=== PATIENT | male | born 1980 | race Two or more races ===

== ENCOUNTER 2024-11-05 08:23 | Inpatient (IN) | payer BC, SELFPAY ==
[2024-11-05] VITALS (13 sets, daily range): BP systolic 106–130; BP diastolic 80–95; PULSE 84–105; RESP 19–94; TEMP 36.3–36.8; O2SAT 91–95; BMI 29.8; BMI 28.5; BMI 27.7
--- NOTE | 2024-11-05 08:32 | EKG_ITS ---
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1980 Requested By: Javed Cruz (HOLISTIC SPECIALIST) Order Number: [id number] Reading MD: Javed Cruz (HOLISTIC SPECIALIST) Measurements Intervals [place] Rate: 98 P: 64 VA: 145 QRS: 81 QRSD: 110 T: -28 QT: 369 QTc: 473 Interpretive Statements SINUS RHYTHM POSSIBLE LEFT ATRIAL ENLARGEMENT [-0.1mV P-WAVE IN V1/V2] INCOMPLETE RIGHT BUNDLE BRANCH BLOCK [90+ ms QRS DURATION, TERMINAL R IN V1/V2, 40+ ms S IN I/aVL/V4/V5/V6] MODERATE T-WAVE ABNORMALITY, CONSIDER ANTERIOR ISCHEMIA [-0.1+ mV T-WAVE IN V3/V4] MODERATE T-WAVE ABNORMALITY, CONSIDER INFERIOR ISCHEMIA [-0.1+ mV T-WAVE IN II/aVF] No previous ECG available for comparison /store/S0/[id number]/[id number].pdf
--- NOTE | 2024-11-05 08:49 | XR_ITS ---
Examination: PA lateral chest 2 views Technique: Upright PA lateral chest 2 views Exam date and time: November 06, 2019 5091 hrs. Indications: Chest pain today Findings: Normal heart size. Lungs are clear. The osseous structures are intact Impression: No active disease
--- NOTE | 2024-11-05 08:49 | PD.EDRME ---
Rapid Medical Screening Exam RME Arrival date/time: 11/05/24 08:23 43-year-old male presents to the emergency department complaints of chest pain and shortness of breath Chief Complaint: Chest Pain Time Seen by Provider: 11/05/24 09:00 Vital signs: Vital Signs Temperature 98.3 F 11/05/24 08:34 Pulse Rate 105 H 11/05/24 08:34 Respiratory Rate 19 11/05/24 08:34 Blood Pressure 124/85 H 11/05/24 08:34 Pulse Oximetry (%) 92 L 11/05/24 08:34 Oxygen Delivery Method Room Air 11/05/24 08:34
--- NOTE | 2024-11-05 09:12 | EDNOTE_ITS ---
ED Chest Pain RME/HPI General Chief Complaint: Chest Pain Stated Complaint: CP x 1 year and SOB x 1 mo. Time Seen by Provider: 11/05/24 09:00 Arrival date/time: 11/05/24 08:23 RME / HPI RME / HPI narrative: 11/05/24 08:23 43-year-old male presents to the emergency department complaints of chest pain and shortness of breath DR. HANSON MAIN ED EVALUATION: 43-year-old male patient with history of trauma to lower left ribs 1 year ago complaining of substernal chest pain that has not gone away since that time. Nonradiating. States he has also had decreased appetite and weight loss of 15 pounds and has been experiencing intermittent shortness of breath on exertion progressively more frequently. Denies cough. Denies fever. States a year ago he was noted here to have an extra heart sound and was sent to [facility] where workup was negative. Denies nausea or vomiting. Denies diarrhea or constipation. Related Data Allergies Allergy/AdvReac Type Severity Reaction Status Date / Time No Known Allergies Allergy Unverified 11/05/24 11:34 Review of Systems Review of Systems Systems Reviewed: All systems reviewed, normal except as documented Narrative Review of Systems: GEN: No fever, no chills, + decreased appetite and weight loss of 15 pounds EYES: No discharge, no visual changes, no pain HEENT: No ear pain, no congestion, no sore throat PULM: + intermittent shortness of breath on exertion , no cough, no congestion CV: + substernal chest pain, + dyspnea on exertion, no palpitations GI: No nausea, no vomiting, no diarrhea, no pain, no constipation : No frequency, no urgency and no dysuria MUSC/SKEL: No joint pain, no back pain SKIN: No rash PSYCH: No hallucinations, no depression HEME/LYMPH: No easy bleeding or bruising tendencies NEURO: No weakness, no headache Past Medical History Social History SMOKING STATUS: Never smoker SUBSTANCE USE: does not use ALCOHOL: Never ED Exam Narrative Physical exam: GENERAL APPEARANCE: alert and oriented x 4, well-developed, well-nourished, no acute distress VITALS: All vitals were reviewed and the pulse ox is 93% on room air, which is normal according to my interpretation. HEENT: Normocephalic, atraumatic; pupils equal, round, reactive to light; EOMI; mucous membranes pink, moist; oropharynx clear NECK: Supple LUNGS: CTABL; no wheezes, no rales, no rhonchi HEART: Regular rate, regular rhythm; normal S1, S2; no murmurs ABDOMEN: non distended; normal BS; soft, no tenderness, no guarding, no rebound; no masses, no organomegaly, no hernia BACK: no CVA tenderness EXTREMITIES: atraumatic; no edema NEUROLOGIC: awake; alert and oriented x4; cranial nerves II-XII grossly intact; no focal sensory or motor deficits PSYCHIATRIC: appropriate mood and affect SKIN: warm, dry, normal color; no rashes Course Quality Measures none Orders Category Date Time Status Bedside COVID-19 Antigen Test NOW Care 11/05/24 08:58 Active Bedside Influenza A&B Antigen Test NOW Care 11/05/24 08:[address] Screening NOW Care 11/05/24 09:12 Active Lay Out Worker NOW Care 11/05/24 08:57 Active EKG (ED ONLY) *Do not use* NOW Care 11/05/24 08:[address] angio chest Stat Exams 11/05/24 09:12 Completed EKG (ED Only) Stat Exams 11/05/24 08:32 Draft XR chest 2V Stat Exams 11/05/24 08:49 Completed Alcohol, Blood Medical Stat Lab 11/05/24 08:55 Completed BNP [B-Type Natriuretic Peptide] Stat Lab 11/05/24 08:55 Completed CBC Stat Lab 11/05/24 08:55 Completed Comprehensive Metabolic Panel Stat Lab 11/05/24 08:55 Completed Drug Screen,Urine Stat Lab 11/05/24 11:04 Completed Lipase Stat Lab 11/05/24 08:55 Completed Partial Thromboplastin Time AM DRAW Lab 11/07/24 05:00 Ordered Partial Thromboplastin Time Stat Lab 11/05/24 11:38 Ordered Prothrombin Time with INR AM DRAW Lab 11/07/24 05:00 Ordered Troponin I Stat Lab 11/05/24 08:55 Completed Aspirin Chew Med 11/05/24 10:49 Discontinued 324 mg PO X1 ONE Heparin Inj Med 11/05/24 11:32 Discontinued 4,000 unit IV X1 ONE Heparin/D5w 25K 250 ML Ivpb [Heparin in D5w Ivpb] Med 11/05/24 11:45 Pending 25,000 unit in 250 ml IV 12 units/kg/hr O2 [Oxygen Delivery] NOW RT 11/05/24 08:57 Active Vital Signs Vital signs: Vital Signs Temperature 98.3 F 11/05/24 08:34 Pulse Rate 105 H 11/05/24 08:34 Respiratory Rate 19 11/05/24 08:34 Blood Pressure 124/85 H 11/05/24 08:34 Pulse Oximetry (%) 92 L 11/05/24 08:34 Oxygen Delivery Method Room Air 11/05/24 08:34 Procedures -ED EKG Interpretation #1: Date of EK11/05/24 Time of EK:41 Rate: 98 Interpretation: Interpreted by me Additional EKG comment: sinus rhythm, rate 98, T wave inversion in V1-V3, incomplete right bundle branch block Chest Pain MDM Narrative MDM Narrative:: Christi Wilder am scribing for and in the presence of Dr. Hanson. Patient data External records reviewed:: [facility] previous records (Reviewed last ED visit dated 12/16/23, discharged with the following: Chest wall contusion) Clinical information provided by:: patient Social determinants that could affect healthcare access:: none Patient has the following chronic illnesses:: trauma to lower left ribs 1 year ago How is presenting disease/condition affected by chronic disease/condition?: exacerbated by Evaluation data The following diagnostics were reviewed and interpreted by me:: lab results, radiology exam(s) and EKG tracing(s) (EKG#1: EKG at 0841 hours. Interpreted by me: sinus rhythm, rate 98, T wave inversion in V1-V3, incomplete right bundle branch block) Lab and/or radiology exams considered but not ordered:: none Interpretation Summary: Procedure(s): XR chest 2V Accession Number(s): [id number] cc: Nancy (RASTA),Javed MAGDALENO; Tripp Miranda MD; Ric Sanchez PA-C~ Examination: PA lateral chest 2 views Technique: Upright PA lateral chest 2 views Exam date and time: November 06, 2019 5091 hrs. Indications: Chest pain today Findings: Normal heart size. Lungs are clear. The osseous structures are intact Impression: No active disease Dictated By: Tripp Miranda MD Procedure(s): CT angio chest Accession Number(s): [id number] cc: Tripp Miranda MD; Bella Hanson MD; Ric Sanchez PA-C~ Examination: CTA chest with intravenous contrast 2-D reconstructions 3-D reconstructions, vascular Date and time of exam: November 05, 2024 10:30 PM Indications: Onset chest pain shortness of breath today CTDI: vol (mGy) 22.7 DLP: (mGycm) 373 Technique: Multiple axial sections of the thorax have been obtained. 3 mm slice thickness, from below the hemidiaphragms to above the apices of the lungs. Mediastinal and lung density settings have been obtained. 2-D sagittal and coronal reconstructions. 3-D angiographic renderings, 3-D volume renderings, 3D post processing, vascular maximum intensity projections obtained. Contrast administered is 100 cc Isovue-370. Low dose protocols were performed. One or more of the following dose reduction techniques were used; automated exposure control, adjustment of the mA and/or KV according to patient size, use of iterative reconstruction technique. Findings: Large bilateral filling defects in the main pulmonary arteries right and left upper lobe pulmonary artery branches Normal heart size No mediastinal lymphadenopathy No pneumonia or pulmonary infarction No focal liver or splenic lesions No gallstones No pancreatic mass Impression: Multiple large bilateral pulmonary artery emboli Dictated By: Tripp Miranda MD Medications / Prescriptions Medications or Prescriptions considered but not ordered:: none Medication administrations:: Medication Administration History Heparin Sodium/Dextrose (Heparin In D5w Ivpb) 25,000 unit in 250 mls @ 12.111 mls/hr IV .[id number] [facility]; Protocol Stop: 11/19/24 11:44 Discontinued Medications Aspirin (Aspirin 81 Mg Chew) 324 mg PO X1 ONE Stop: 11/05/24 10:50 Last Admin: 11/05/24 11:09 Dose: 324 mg Documented By: CHICHO Heparin Sodium (Porcine) (Heparin Sod Inj 5000 Unit/Ml Vial) 4,000 unit IV X1 ONE; Protocol Stop: 11/05/24 11:33 see above Consultations Consultation(s) initiated? (list below): Yes Consultation #1 (Physician, Specialty, Details): Discussed test HPI, PMHx, lab, radiology results and/or management with insurance claims processor Dr. Lopez. Since there is not evidence of right ventricular strain or hypoxia no need to transfer the patient. Patient can be admitted to hospitalist services and Dr. Lopez will consult. Time: 11:37 Consultation #2 (Physician, Specialty, Details): Discussed test HPI, PMHx, lab, radiology results and/or management with hospitalist. Will admit for further evaluation and management. Accepts patient for admission. Time: 11:52 Diagnosis Chest Pain Differential Diagnosis: atypical chest pain, costochondritis, chest pain and biliary colic Most likely diagnosis given after review of the tests above:: Multiple large bilateral pulmonary artery emboli Admission Indicated Admission indicated?: indicated Admission Request Was there a request for admission?: Yes Admission Attestation Admission request attestation: Discussed case with [] from Hospitalist service regarding admission. Discussed patients ED course, exam findings, labs, and radiology results. The Hospitalist [agrees,declines] to accept the patient for admission. Disposition Plan Disposition Plan: Admit Discharge Plan Plan Patient Disposition: Admit Acute Care w/in Hospital Prescriptions/Referrals Referrals: Ric Sanchez PA-C [Primary Care Provider] - In 1 week Problem List Clinical Impression: Bilateral pulmonary embolism Patient/Caregiver Discharge Instructions Print Language: Cambodian Stand Alone Forms: [employer] Award Info., Patient Portal Info Letter
[2024-11-05 09:19] LABS: Basophils # (Auto) 0.1 Thou/mm3 (0.0-0.2); Basophils % (Auto) 1 % (0-2.5); Eosinophils # (Auto) 0.2 Thou/mm3 (0.0-0.5); Eosinophils % (Auto) 2 % (0-10); Hemoglobin 17.1 g/dL (13.5-16.0); Immature Granulocytes % (Auto) 0 % (0-0); Immature Granulocytes Auto 0.04 Thou/mm3 (0.00-0.00); Lymphocytes # (Auto) 3.2 Thou/mm3 (1.0-4.8); Lymphocytes % (Auto) 29 % (10-50); Mean Corpuscular HGB Conc 32.9 g/dl (31.0-37.0); Mean Corpuscular Hemoglobin 25.9 pg (25.0-35.0); Mean Corpuscular Volume 79 fL (80-100); Monocytes # (Auto) 0.5 Thou/mm3 (0.0-0.8); Monocytes % (Auto) 4 % (0-12); Neutrophils % (Auto) 64 % (37-80); Nucleated Red Blood Cell % 0 /100 WBC (0); Platelet Count 293 Thou/mm3 (140-440); White Blood Count 10.9 Thou/mm3 (3.8-10.6)
[2024-11-05 09:41] LABS: Alanine Aminotransferase 39 U/L (10-49); Albumin, Serum 4.8 gm/dL (3.5-5.0); Albumin/Globulin Ratio 1.5 (1.2-2.2); Alcohol, Blood Medical < 10.0 mg/dL (0-10.0); Alkaline Phosphatase 100 U/L (46-116); Anion Gap 7 (7-16); Aspartate Amino Transferase 24 U/L (0-34); BUN/Creatinine Ratio 15 Ratio (12-20); Bilirubin,Total 0.8 mg/dL (0.3-1.2); Blood Urea Nitrogen 18 mg/dL (9-23); Calcium 9.9 mg/dL (8.3-10.6); Calcium (Corrected) 9.9 mg/dL (8.5-10.1); Carbon Dioxide 24.1 mMol/L (20.0-31.0); Chloride 109 mMol/L (98-107); Creatinine (Component) 1.2 mg/dL (0.6-1.3); Estimated Creatinine Clearance 100.7 mL/min (>60); Globulin 3.3 gm/dL (2.3-3.5); Glucose 126 mg/dL (74-106); Lipase 50 U/L (12-53); Osmolality,Calculated 283 (275-295); Potassium 4.7 mMol/L (3.4-5.1); Sodium 140 mMol/L (136-145); Total Protein 8.1 gm/dL (5.7-8.2); eGFR > 60 See Note
[2024-11-05 09:45] LABS: Troponin I 0.077 ng/mL (0.0-0.045)
[2024-11-05 09:46] LABS: B-Type Natriuretic Peptide 287 pg/mL (0-100)
[2024-11-05] MEDS: ASPIRIN 81 MG CHEW 324 MG PO (11:09)
[2024-11-05 11:35] LABS: Amphetamine/Methamp Scrn,U Negative (Negative); Barbiturate Screen,Urine Negative (Negative); Benzodiazepines Screen,Urine Negative (Negative); Benzoylecgonine Screen, Ur Negative (Negative); Fentanyl Screen,Urine Negative (Negative); Opiate Screen,Urine Negative (Negative); THC Screen,Urine Negative (Negative)
--- NOTE | 2024-11-05 12:00 | PC.NURSE ---
DR. MCCABE AT BEDSIDE
[2024-11-05] MEDS: HEPARIN SOD INJ 5000 UNIT/ML VIAL 4000 UNIT IV (12:11)
--- NOTE | 2024-11-05 12:16 | PD.IMCONS ---
HPI Data of Consult Primary Care Provider: Ric Sanchez PA-C Consult Narrative History of present illness: This is 43-year-old gentleman with no significant past medical history Patient started having increasing shortness of breath going on for 3 weeks Initially it was somewhat mild however lately it was gotten worse Currently he is unable to walk even bed to the bathroom without short of breath He also complains of atypical chest pain on the left side is however currently he denies any symptoms EKG shows sinus rhythm with nonspecific T inversions anteriorly Patient's troponin is elevated minimally CAT scan of the chest shows multiple large pulmonary embolism cardiology consultation requested Currently patient is seen in the emergency room he appears comfortable he is on oxygen currently denies any cardiac symptoms recalls having start symptoms started 3 weeks ago cc:: cc: Meds Home Medications and Allergies Home Medications ?Medication ?Instructions ?Recorded ?Confirmed ?Type No Known Home Medications 11/05/24 11/05/24 History Allergies Allergy/AdvReac Type Severity Reaction Status Date / Time No Known Allergies Allergy Unverified 11/05/24 12:16 Exam Vital Signs Temp Pulse Resp BP Pulse Ox O2 Del Method 97.4 F 92 23 H 106/83 93 L Room Air 11/05/24 10:59 11/05/24 10:59 11/05/24 10:59 11/05/24 10:59 11/05/24 10:59 11/05/24 10:59 Routine HEENT Exam Head: Present normocephalic and atraumatic Eye: Present EOMI and PERRL ENT: Present mucous membranes moist Routine Neck Exam Neck: Present supple and trachea midline Routine Respiratory Exam Respiratory: Present chest non-tender, lungs clear, normal breath sounds and no resp distress Routine Cardiovascular Exam Cardiovascular: Present RRR Routine Abdominal Exam Abdominal: Present soft and normoactive bowel sounds Routine Extremities Exam Extremities: Present full ROM Routine Skin Exam Skin: Present intact, dry and warm Routine Neurological Exam Neurological: Present alert, oriented X3 and CN II-XII intact Routine Psychiatric Exam Psychiatric: Present normal affect and normal thought process Results Labs 11/05/24 08:55 11/05/24 08:55 Labs: Short CBC 11/05/24 Range/Units 08:55 WBC 10.9 H (3.8-10.6) Thou/mm3 Hgb 17.1 H (13.5-16.0) g/dL Hct 52.0 (41.0-53.0) % Plt Count 293 (140-440) Thou/mm3 BMP 11/05/24 08:55 Sodium 140 Potassium 4.7 Chloride 109 H Carbon Dioxide 24.1 BUN 18 Creatinine 1.2 Glucose 126 H Calcium 9.9 Cardiac Enzymes 11/05/24 Range/Units 08:55 Troponin I 0.077 H* (0.0-0.045) ng/mL Liver Function 11/05/24 Range/Units 08:55 Total Bilirubin 0.8 (0.3-1.2) mg/dL AST 24 (0-34) U/L ALT 39 (10-49) U/L Alkaline Phosphatase 100 (46-116) U/L Albumin 4.8 (3.5-5.0) gm/dL Assessment and Plan Assessment and plan (1) Bilateral pulmonary embolism: Status: Acute (2) SOB (shortness of breath): Status: Acute (3) Elevated troponin: Status: Acute Additional Assessment & Plan Additional Plan: Patient appears to have pulmonary embolism bilateral Continue anticoagulation We will recommend echocardiographic exam Elevated troponin is most likely due to demand ischemia Doubt acute coronary syndrome
--- NOTE | 2024-11-05 12:17 | PC.NURSE ---
DR. BANKS AT BEDSIDE AND DR. GHOTRA AT BEDSIDE.
[2024-11-05 12:36] LABS: Partial Thromboplastin Time 25.1 Seconds (22.0-36.0)
[2024-11-05] MEDS: Heparin/D5w 25K 250 ML Ivpb 25,000 UNIT/250 ML BAG 10 UNIT IV (12:59)
--- NOTE | 2024-11-05 13:07 | XR_ITS ---
Examination: Venous duplex lower extremity sonogram, bilateral. Date and time of exam: November 05, 2024 1543 hrs. Indications: Lower leg edema, multiple large bilateral pulmonary artery emboli on CT angiogram study today Technique: Multiple sonographic images of the deep venous system have been obtained. B-mode/2-D grayscale imaging of vascular structures and Doppler spectral analysis (waveforms) and color performed Both legs are examined. Findings: Occlusive acute deep vein thrombus involving the right superficial femoral and right peroneal veins Occlusive deep vein thrombus involving the left superficial femoral, popliteal and peroneal veins Impression: Extensive bilateral lower extremity deep vein thrombus
--- NOTE | 2024-11-05 13:15 | PD.PUCONS ---
[facility] Pulmonology Consult Data of Consult Requesting Physician: Asad Gallardo DO Primary Care Provider: Ric Sanchez PA-C Consult Narrative History of present illness: Patient is a 43 year old male with no significant PMH or surgical history. Patient with prior right foot fracture three years ago. 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 No family history of blood clots. Presented to ED with worsening dyspnea. If he thinks back, about 1 year ago this started but now unable to run. Able to do most activities including climbs stairs. No new leg swelling, RLE swelling noted intermittently. Patient with no prior history of blood clots personally as well. Patient has been reporting chest pain, told on recent imaging that he had a traumatic fall that lead to rib fractures that was healing/ bruised still but persisted. No orthopnea, PND, dyspnea with heavier exertion. Patient denied any dizziness or pre-/syncopal episodes. CTA on admission with extensive clots in both lungs, predominantly lobar, cannot exclude chronic component. Patient with no BNP elevation, minimal troponin elevation. EKG with RBBB pattern, NSR. Being admitted with initiation of 2LNC and heparin gtt to be started. is present with him at bedside and translating as well as myself. PMH: No significant past medical history PSH: No surgical history SH: Patient denies smoking, drug use or alcohol use Allergies: No known drug allergy Home Meds: Patient does not take any medications cc:: cc: Asad Gallardo DO Review of Systems Review of Systems Narrative Review of Systems: Pertinent review of symptoms completed with findings included in HPI above Past Medical History Past Medical History Comments PMH COMMENT: PMH/ PSH, FH, Soc Hx reviewed as per above. Lives with in [place]. 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 Patient without pertinent family history. Meds Home Medications and Allergies Home Medications ?Medication ?Instructions ?Recorded ?Confirmed ?Type No Known Home Medications 11/05/24 11/05/24 History Allergies Allergy/AdvReac Type Severity Reaction Status Date / Time No Known Allergies Allergy Unverified 11/05/24 12:16 Exam Vital Signs Temp Pulse Resp BP Pulse Ox O2 Del Method O2 Flow Rate 97.3 F 84 24 H 112/88 H 94 L Nasal Cannula 2 11/05/24 20:00 11/05/24 23:38 11/05/24 23:38 11/05/24 20:00 11/05/24 23:38 11/05/24 20:00 11/05/24 23:38 Narrative Exam GEN: EROS AAOX3 speaks in full sentences Neck: No JVD Chest: symmetric rise CVS: systolic murmur over aortic valve Pulm: clear to auscultation Abd: soft, NT, ND Ext: no clubbing or cyanosis Neuro: nonfocal on gross exam Psych: appropriate mood and affect Skin: no obvious lesions/ rash Physical Exam Completion Physical Exam Complete?: Yes Results - Aircraft Designer Labs 11/05/24 08:55 11/05/24 08:55 Labs: Short CBC 11/05/24 Range/Units 08:55 WBC 10.9 H (3.8-10.6) Thou/mm3 Hgb 17.1 H (13.5-16.0) g/dL Hct 52.0 (41.0-53.0) % Plt Count 293 (140-440) Thou/mm3 BMP 11/05/24 08:55 Sodium 140 Potassium 4.7 Chloride 109 H Carbon Dioxide 24.1 BUN 18 Creatinine 1.2 Glucose 126 H Calcium 9.9 Cardiac Enzymes 11/05/24 11/05/24 11/05/24 Range/Units 08:55 13:27 18:44 Troponin I 0.077 H* 0.066 H* 0.085 H* (0.0-0.045) ng/mL Liver Function 11/05/24 Range/Units 08:55 Total Bilirubin 0.8 (0.3-1.2) mg/dL AST 24 (0-34) U/L ALT 39 (10-49) U/L Alkaline Phosphatase 100 (46-116) U/L Albumin 4.8 (3.5-5.0) gm/dL Assessment & Plan Problem List (1) Bilateral pulmonary embolism: Status: Acute (2) SOB (shortness of breath): Status: Acute (3) Elevated troponin: Status: Acute Additional Plan Additional Plan: Patient presenting with large clot burden form pulmonary embolism bilaterally Lower extremity doppler also with extensive clot bilaterally Gentle fluid rehydration given polycythemia Chronicity potentially for years, precipitated by occupation/ lower extremity fracture Polycythemia may be related to chronic hypoxia if untreated or primary cause, consider check Aryan 2 for PV- explains hypercoaguable state, minor criteria would include leukocytosis though this could be reactive as well Anticoagulation with heparin gtt for now, please be aware this will preclude some hypercoagulable tests RV /RA look enlarged on CT though RV: LV not greater than 1:1, BNP negative ( favorable), and troponin minimally elevated- not submassive at this time Will consult cardiology after Echo, possible role for thrombectomy Also complete VQ to look for chronic component Check for malignancy as well given 15 lbs weight loss, C-scope given colon Ca most common and CT chest without any focal lesion though abdomen/ pelvis should be excluded as well Ambulatory O2 testing should be done prior to discharge, must wear at night if positive, stable on 2L at rest now Will need follow up Echo and VQ in 3 months after AC to ensure no CTEPH- would refer to [facility] for surgery in that case D/W Dr. Hanson, Dr. Ortiz, and Medicine team Provider Notation Provider Notation: Although this document has been carefully reviewed, there may still be some phonetic and other typographical errors. These errors are purely grammatical due to imperfections in the software program and should not be construed in any way to compromise the substance of the patient's medical care during this visit. Thank you for the opportunity and privilege in assisting you with this patient's care and management.
--- NOTE | 2024-11-05 13:26 | ESHP_ITS ---
Documentation for date of: 11/05/24 [facility] History of Present Illness History of present illness: Mr. Pillai is a 43-year-old male with no significant past medical history presented to the ED complaining of substernal chest pain that has not improved for the past 1 week.. Patient states approximately a year ago he had a chest trauma which initially chest x-ray did not show any fracture but repeat chest x- ray showed rib fracture and ever since then he has had this substernal chest pain which has not improved. Patient states for the last couple days along with the chest pain he was having increased shortness of breath and was unable to tolerate even secondhand smoke and was becoming very short of breath if exposed to any smoke. Patient denies the pain radiating anywhere, denies any dizziness, diaphoresis, orthopnea or PND. Patient has also recently lost 15 pounds unintentionally. Patient has stated that although he has no health problems approximately 3 years ago he broke his right foot and was in a boot for 2 months and did not undergo any surgery or cast. Patient did notice that his right calf appeared to be bigger than the left and denied any pain in his lower extremities. 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 ED course: Vitals: Blood pressure 124/85, pulse 105, 2 L oxygen via nasal cannula Labs: WBC 12.9, Hgb 17.1, HCT 52.0, MCV 70, APTT 25.1, CMP unremarkable with exception of glucose 126 Troponin 0.077 -> 0.066 , BNP 280 Urine tox negative Images EKG: Sinus rhythm with moderate T wave abnormality CXR: No active disease Chest CTA: Multiple large bilateral pulmonary artery emboli In the ED patient received aspirin 324 x 1, heparin 4000 units x 1, and patient was started on a heparin drip PMH: No significant past medical history PSH: No surgical history SH: Patient denies smoking, drug use or alcohol use Allergies: No known drug allergy Home Meds: Patient does not take any medications Review of Systems Review of Systems Systems Reviewed: All systems reviewed, normal except as documented Exam Vital Signs Temp Pulse Resp BP Pulse Ox O2 Del Method O2 Flow Rate 98.1 F 90 19 116/80 94 L Nasal Cannula 2 11/05/24 12:45 11/05/24 13:08 11/05/24 12:24 11/05/24 12:24 11/05/24 13:08 11/05/24 12:24 11/05/24 13:08 Narrative Exam GENERAL: A&Ox3 . Awake, Not in acute distress NEURO: no focal neurological deficits HEENT: Atraumatic, Normocephalic. mucous membranes moist. Eyes open, symmetrical, & clear HEART: loud systolic murmur heard LUNGS: Clear to auscultation with no wheezing or crackles. ABDOMEN: soft, non-distended, non-tender, bowel sounds heard, no guarding or rebound tenderness SKIN: No Rash or ecchymoses EXTREMITIES: left calf edema noted, no tenderness, able to move all 4 extremities, pedal pulses palpated Results: Labs 11/05/24 08:55 11/05/24 08:55 Labs: Short CBC 11/05/24 Range/Units 08:55 WBC 10.9 H (3.8-10.6) Thou/mm3 Hgb 17.1 H (13.5-16.0) g/dL Hct 52.0 (41.0-53.0) % Plt Count 293 (140-440) Thou/mm3 BMP 11/05/24 08:55 Sodium 140 Potassium 4.7 Chloride 109 H Carbon Dioxide 24.1 BUN 18 Creatinine 1.2 Glucose 126 H Calcium 9.9 Cardiac Enzymes 11/05/24 Range/Units 08:55 Troponin I 0.077 H* (0.0-0.045) ng/mL Liver Function 11/05/24 Range/Units 08:55 Total Bilirubin 0.8 (0.3-1.2) mg/dL AST 24 (0-34) U/L ALT 39 (10-49) U/L Alkaline Phosphatase 100 (46-116) U/L Albumin 4.8 (3.5-5.0) gm/dL Quality Measures Quality Measures none Medications Home Medications and Allergies Home Medications ?Medication ?Instructions ?Recorded ?Confirmed ?Type No Known Home Medications 11/05/2404/24 History Allergies Allergy/AdvReac Type Severity Reaction Status Date / Time No Known Allergies Allergy Unverified 11/05/24 12:16 Visit Medications Acetaminophen (Acetaminophen 325 Mg Tablet) 650 mg PO Q6H PRN PRN Reason: Fever >101.5 Stop: 12/05/24 13:01 Hydrocodone Bitart/Acetaminophen (Hydrocodone/Apap 5/325 Tablet) 1 tab PO Q4HR PRN PRN Reason: PAIN SCALE 4-6 (Moderate Stop: 11/10/24 13:09 Heparin Sodium/Dextrose (Heparin In D5w Ivpb) 25,000 unit in 250 mls @ 10 mls/hr IV .Q24H COLTON; Protocol Stop: 11/19/24 12:29 Last Admin: 11/05/24 12:59 Dose: 9.908 units/kg/hr, 10 mls/hr Ondansetron HCl (Ondansetron Inj 2 Mg/Ml Inj 2 Ml) 4 mg IV Q6H PRN; Protocol PRN Reason: NAUSEA OR VOMITING Stop: 12/05/24 13:09 Pantoprazole Sodium (Pantoprazole Inj 40 Mg Vial) 40 mg IVP QDAY COLTON Stop: 12/05/24 13:14 Sennosides (Senna Tablet) 1 tab PO QDAY PRN; Protocol PRN Reason: constipation Stop: 12/05/24 13:09 Discontinued Medications Aspirin (Aspirin 81 Mg Chew) 324 mg PO X1 ONE Stop: 11/05/24 10:50 Last Admin: 11/05/24 11:09 Dose: 324 mg Heparin Sodium (Porcine) (Heparin Sod Inj 5000 Unit/Ml Vial) 4,000 unit IV X1 ONE; Protocol Stop: 11/05/24 11:33 Last Admin: 11/05/24 12:11 Dose: 4,000 unit Assessment & Plan Plan Mr. Pillai is a 43-year-old male with no significant past medical history presented to the ED complaining of substernal chest pain that has not improved for the past 1 week. Pt is admitted for management of bilateral PE and DVT's. #Bilateral Pulmonary embolism likely secondary to DVT's #bilateral extensive LE DVT's #Erythrocytosis -Pt complained of chest pain and shortness of breath. Pt also noted right calf enlargemet. -CTA of chest is evident of Large bilateral filling defects in the main pulmonary arteries right and left upper lobe pulmonary artery branches. Multiple bilaterall PE -Venous doppler ultrasound of LE ordered- and teleradiologist called states there is extensive bilateral LE DVT's- worse on the right LE -Hgb 17.1 , likely sencondary to chronic thrombois -PESI score 53 Plan: -Pt is started on heparin drip -EPO, cocci, factor V Leiden mutation, hepatitis panel, TSH ordered -Consulted cardiology, appreciate recommendations -Echocardiogram ordered # Elevated troponin, type ll, likely secondary to demand ischemia -Troponin 0.077 -> 0.066 , BNP 280 Health Maintenance Disposition: telemetry for heparin drip for large bilateral PE and extensive DVT's DVT Prophylaxis: Pt is heparin drip GI Prophylaxis: Pantoprozol-40 IV Qday Diet: regular diet Lines: Peripheral lines Code status: Full Assessment and plan discussed with my attending physician Dr. Paulina Benjamin (PGY-1)- Internal medicine resident Attending Provider Attestation/Addendum I have discussed and was present for the essential components of the history, physical examination, diagnosis, and treatment plan with the resident. I agree with the patient's care as documented by the resident and amended herein by me. Sidney Gallardo DO. Patient seen and evaluated this AM. In short, 43-year-old male with a past medical history of rib trauma with fracture approximately 1 year ago as well as right lower extremity fracture approximately 3 years ago, not currently on any medications, presents the ED with shortness of breath for the past several days prior to admission as well as substernal, nonradiating chest pain. Patient also endorses an unintentional 15 pound weight loss over the past several weeks. 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. Upon arrival to the ED, patient was normotensive, pulse 105, afebrile, patient on 2 L, SpO2 91%. Significant labs include a WBC of 11, hemoglobin 17, BMP largely unremarkable, troponin opponent was slightly elevated 0.77 but has down trended, BNP 287, U tox negative, EKG demonstrating NSR, chest x-ray unremarkable, CTA demonstrating multiple large bilateral pulmonary emboli. Bilateral DVT ultrasound of the lower extremities demonstrating extensive bilateral DVTs. Patient was started on heparin drip in the emergency department. Patient will be admitted to the telemetry floor and continued on heparin drip however will eventually be transition to Eliquis. An echo has been ordered to evaluate for cardiac function, specifically right heart dysfunction and RV/LV ratio. Cardiology has been consulted and agrees with echo and anticoagulation for now. We did calculate the Pasi score which was 53 indicating very low risk for mortality in the next 30 days however will reevaluate once echo is complete. Troponin elevation likely secondary to demand ischemia, has already down trended. Erythrocytosis is likely secondary, possibly secondary to chronic thrombus/CTEPH. Patient was evaluated by pulmonology in the ED who agrees with plan, will continue to monitor closely. Although this document has been carefully reviewed, there may still be some phonetic and other typographical errors. These errors are purely grammatical due to imperfections in the software program and should not be construed in any way to compromise the substance of the patient's medical care during this visit.
[2024-11-05 13:59] LABS: Troponin I 0.066 ng/mL (0.0-0.045)
[2024-11-05 14:52] LABS: Cocci Serology, IgM Negative (Negative)
[2024-11-05] MEDS: PANTOPRAZOLE INJ 40 MG VIAL IVP (16:56)
--- NOTE | 2024-11-05 17:07 | PC.NURSE ---
CALLED REPORT TO JAIDEN CALDERÓN. ANSWERED ALL QUESTIONS.
[2024-11-05 19:23] LABS: Partial Thromboplastin Time 27.7 Seconds (22.0-36.0)
[2024-11-05 19:32] LABS: Troponin I 0.085 ng/mL (0.0-0.045)
[2024-11-05] MEDS: HEPARIN SOD INJ 5000 UNIT/ML VIAL 4000 UNIT IVP (19:50)
--- NOTE | 2024-11-05 23:41 | PC.NURSE ---
Venous doppler report returned showing extensive bilateral lower extremity deep vein thrombus. Dr. Youssef made aware. Dr. Youssef switched ACS heparin protocol to DVT heparin protocol.
[2024-11-06] VITALS (8 sets, daily range): BP systolic 107–134; BP diastolic 70–89; PULSE 78–94; RESP 14–95; TEMP 36–37.1; O2SAT 94–95; BMI 28.0
[2024-11-06] MEDS: Heparin/D5w 25K 250 ML Ivpb 25,000 UNIT/250 ML BAG 17.639 UNIT IV ×3 (00:21→23:59)
[2024-11-06 01:52] LABS: Troponin I 0.104 ng/mL (0.0-0.045)
[2024-11-06 07:23] LABS: Basophils % (Auto) 0 % (0-2.5); Eosinophils # (Auto) 0.2 Thou/mm3 (0.0-0.5); Eosinophils % (Auto) 2 % (0-10); Hemoglobin 15.4 g/dL (13.5-16.0); Immature Granulocytes % (Auto) 0 % (0-0); Immature Granulocytes Auto 0.02 Thou/mm3 (0.00-0.00); Lymphocytes # (Auto) 3.4 Thou/mm3 (1.0-4.8); Lymphocytes % (Auto) 29 % (10-50); Mean Corpuscular HGB Conc 32.8 g/dl (31.0-37.0); Mean Corpuscular Hemoglobin 26.1 pg (25.0-35.0); Mean Corpuscular Volume 80 fL (80-100); Monocytes # (Auto) 0.7 Thou/mm3 (0.0-0.8); Monocytes % (Auto) 6 % (0-12); Neutrophils # (Auto) 7.3 Thou/mm3 (1.8-7.7); Neutrophils % (Auto) 63 % (37-80); Nucleated Red Blood Cell % 0 /100 WBC (0); Platelet Count 281 Thou/mm3 (140-440); RDW Standard Deviation 40.8 fL (35.1-43.9); White Blood Count 11.7 Thou/mm3 (3.8-10.6)
[2024-11-06 07:45] LABS: Cardiac Risk Estimate 4.2 RATIO (4.0-6.7); Cholesterol 130 mg/dL (132-200); HDL Cholesterol 31 mg/dL (40-60); LDL Cholesterol,Calculated 75 mg/dL (0-130); Phosphorous 3.1 mg/dL (2.4-5.1); Thyroid Stimulating Hormone 2.21 uIU/mL (0.55-4.78); Triglycerides 119 mg/dL (30-150)
[2024-11-06 07:51] LABS: Partial Thromboplastin Time 68.9 Seconds (22.0-36.0)
[2024-11-06 08:00] LABS: Glucose Estimated Average 143 mg/dL (80-131); Hemoglobin A1C 6.6 % Hgb (4.8-6.0)
[2024-11-06] MEDS: PANTOPRAZOLE INJ 40 MG VIAL IVP (08:39)
[2024-11-06 09:35] LABS: Alanine Aminotransferase 37 U/L (10-49); Albumin, Serum 4.1 gm/dL (3.5-5.0); Albumin/Globulin Ratio 1.5 (1.2-2.2); Alkaline Phosphatase 88 U/L (46-116); Anion Gap 8 (7-16); Aspartate Amino Transferase 44 U/L (0-34); BUN/Creatinine Ratio 17 Ratio (12-20); Bilirubin,Total 0.6 mg/dL (0.3-1.2); Blood Urea Nitrogen 22 mg/dL (9-23); Calcium 9.2 mg/dL (8.3-10.6); Calcium (Corrected) 9.2 mg/dL (8.5-10.1); Carbon Dioxide 20.7 mMol/L (20.0-31.0); Chloride 112 mMol/L (98-107); Creatinine (Component) 1.3 mg/dL (0.6-1.3); Estimated Creatinine Clearance 92.3 mL/min (>60); Globulin 2.7 gm/dL (2.3-3.5); Glucose 104 mg/dL (74-106); Osmolality,Calculated 284 (275-295); Potassium 5.3 mMol/L (3.4-5.1); Sodium 141 mMol/L (136-145); Total Protein 6.8 gm/dL (5.7-8.2); eGFR > 60 See Note
[2024-11-06 09:37] LABS: Troponin I 0.065 ng/mL (0.0-0.045)
[2024-11-06 10:00] LABS: Carcinoembryonic Antigen < 0.0 ng/mL (0.0-5.0)
--- NOTE | 2024-11-06 12:46 | PD.RESPRO ---
Documentation for date of: 11/06/24 Subjective Subjective Interval history: Zarina Pillai 43-y/o M no significant PMHx who presented on 11/05 for substernal chest pain x 1 week. Associated shortness of breath, intolerance to the smoke, as well as right calf mildly larger compared to left but no pain in lower extremities. 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 Denies that pain radiates, dizziness, diaphoresis, orthopnea, or PND. Unintentional 15 pound weight loss over past several weeks. Admitted for management of DVT/bilateral PE. 11/06: Seen and examined at bedside. No acute overnight events reported. Saturating 94% on 2 L NC and noted to be tachycardic at 105 bpm, but patient does not have any complaints. Answered questions regarding clinical status, treatment, and further plans with multiple family members present at bedside. A1c 6.6%, lipid panel largely unremarkable with LDL 75, HDL 31, troponin downtrended. K noted to increase from 4.7-5.3 and will continue to monitor. Still pending echo read and plan for VQ scan on 11/07. CEA and CA-125 within normal limits. Exam Vital Signs Temp Pulse Resp BP Pulse Ox O2 Del Method O2 Flow Rate 97.4 F 85 15 117/77 94 L Nasal Cannula 2 11/06/24 08:00 11/06/24 11:02 11/06/24 11:02 11/06/24 08:00 11/06/24 08:00 11/06/24 08:00 11/06/24 08:00 Narrative Exam GENERAL: A&Ox3 . Awake, Not in acute distress NEURO: no focal neurological deficits HEENT: Atraumatic, Normocephalic. mucous membranes moist. Eyes open, symmetrical, & clear HEART: loud systolic murmur heard LUNGS: Clear to auscultation with no wheezing or crackles. ABDOMEN: soft, non-distended, non-tender, bowel sounds heard, no guarding or rebound tenderness SKIN: No Rash or ecchymoses EXTREMITIES: left calf edema noted, no tenderness, able to move all 4 extremities, pedal pulses palpated Objective Labs 11/06/24 06:41 11/06/24 06:11 Labs: Laboratory Results - last 24 hr 11/05/24 11/05/24 11/05/24 11:53 13:27 18:44 WBC RBC Hgb Hct MCV MCH MCHC RDW Std Deviation Plt Count Neut % (Auto) Lymph % (Auto) Mcclain % (Auto) Eos % (Auto) Baso % (Auto) Neut # (Auto) Lymph # (Auto) Mcclain # (Auto) Eos # (Auto) Baso # (Auto) Immature Gran # (Auto) Absolute Nucleated RBC Immature Gran % Nucleated RBC % APTT 25.1 27.7 Sodium Potassium Chloride Carbon Dioxide Anion Gap BUN Creatinine Estim Creat Clear Calc eGFR BUN/Creatinine Ratio Glucose Estimated Ave Glu mg/dL Hemoglobin A1c Calculated Osmolality Calcium Corrected Calcium Phosphorus Magnesium Total Bilirubin AST ALT Alkaline Phosphatase Troponin I 0.066 H* 0.085 H* Total Protein Albumin Globulin Albumin/Globulin Ratio Triglycerides Cholesterol LDL Cholesterol, Calc HDL Cholesterol Cholesterol/HDL Ratio Carcinoembryonic Ag CA 125 Antigen TSH Coccidioides IgM Ab Negative 11/06/24 11/06/24 11/06/24 01:25 06:11 06:41 WBC 11.7 H RBC 5.90 Hgb 15.4 Hct 47.0 MCV 80 MCH 26.1 MCHC 32.8 RDW Std Deviation 40.8 Plt Count 281 Neut % (Auto) 63 Lymph % (Auto) 29 Mcclain % (Auto) 6 Eos % (Auto) 2 Baso % (Auto) 0 Neut # (Auto) 7.3 Lymph # (Auto) 3.4 Mcclain # (Auto) 0.7 Eos # (Auto) 0.2 Baso # (Auto) 0.0 Immature Gran # (Auto) 0.02 H Absolute Nucleated RBC 0.00 Immature Gran % 0 Nucleated RBC % 0 APTT 68.9 H D Sodium 141 Potassium 5.3 H D Chloride 112 H Carbon Dioxide 20.7 Anion Gap 8 BUN 22 Creatinine 1.3 Estim Creat Clear Calc 92.3 eGFR > 60 BUN/Creatinine Ratio [address] Glu mg/dL 143 H Hemoglobin A1c 6.6 H Calculated Osmolality 284 Calcium 9.2 Corrected Calcium 9.2 Phosphorus 3.1 Magnesium 2.0 Total Bilirubin 0.6 AST 44 H ALT 37 Alkaline Phosphatase 88 Troponin I 0.104 H* 0.065 H* Total Protein 6.8 Albumin 4.1 D Globulin 2.7 Albumin/Globulin Ratio 1.5 Triglycerides 119 Cholesterol 130 L LDL Cholesterol, Calc 75 HDL Cholesterol 31 L Cholesterol/HDL Ratio 4.2 Carcinoembryonic Ag < 0.0 L CA 125 Antigen 6.0 TSH 2.21 Coccidioides IgM Ab Quality Measures Quality Measures none Assessment & Plan Assessment Current Active Medications: Generic Name Dose Route Start Last Admin Trade Name Freq PRN Reason Stop Dose Admin Acetaminophen 650 mg 11/06/24 06:46 Acetaminophen 325 Mg Tablet PO 12/05/24 13:01 Q6H PRN Fever >100.3 Hydrocodone Bitart/Acetaminophen 1 tab 11/05/24 13:10 Hydrocodone/Apap 5/325 Tablet PO 11/10/24 13:09 Q4HR PRN PAIN SCALE 4-6 (Moderate Heparin Sodium/Dextrose 25,000 unit in 250 mls @ 17.639 mls/hr 11/05/24 23:37 11/06/24 08:39 Heparin In D5w Ivpb IV 11/19/24 12:29 18 unit/kg/hr .[id number] COLTON 17.639 mls/hr Administration Protocol 18 UNIT/KG/HR Ondansetron HCl 4 mg 11/05/24 13:10 Ondansetron Inj 2 Mg/Ml Inj 2 Ml IV 12/05/24 13:09 Q6H PRN NAUSEA OR VOMITING Protocol Pantoprazole Sodium 40 mg 11/05/24 13:15 11/06/24 08:39 Pantoprazole Inj 40 Mg Vial IVP 12/05/24 13:14 40 mg QDAY COLTON Administration Sennosides 1 tab 11/05/24 13:10 Senna Tablet PO 12/05/24 13:09 QDAY PRN constipation Protocol Plan Zarina Pillai 43-y/o M no significant PMHx who presented on 11/05 for substernal chest pain x 1 week. Associated shortness of breath, intolerance to the smoke, as well as right calf mildly larger compared to left but no pain in lower extremities. 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 Denies that pain radiates, dizziness, diaphoresis, orthopnea, or PND. Unintentional 15 pound weight loss over past several weeks. Admitted for management of DVT/bilateral PE. #Pulmonary emboli, bilateral #Deep vein thrombosis, bilateral #Erythrocytosis Presented with SOB and substernal chest pain for last few weeks with associated R > L calf. Noted to have shortness of breath over the course of a few weeks and states that for about 10 months was living with his mother and not moving around much. Also endorses 15 lb unintentional weight loss, but does state that he has had decreased appetite during meals as he would sometimes get short of breath. CTA chest: multiple, large B/L PE. BLE Doppler: extensive bilateral LE DVT's (R > L). Hemoglobin 17.1 likely secondary to chronic thrombi. PESI score: 53, very low risk of 30-day mortality. ? Heparin drip ? Plan to switch to eliquis tomorrow, 11/07 ? Cardiology consulted, appreciate recommendations ? Follow-up echo ? Follow-up EPO, cocci, factor V Leiden mutation, hepatitis panel, TSH ordered #Elevated troponin/demand ischemia type ll, likely secondary to PE Troponin 0.077 -> 0.066 -> 0.085 -> 0.104 -> 0.065 Per cardiology, likely demand ischemia vs ACS Hospital management: Disposition: V/Q scan and plan to switch to eliquis tomorrow Fluids: none Diet: cardiac Lines: PIV DVT prophylaxis: heparin drip GI prophylaxis: pantoprazole CODE STATUS: full code ----- Plan discussed with attending physician Dr. Paulina Lima MD PGY-1 Internal Medicine Attending Provider Attestation/Addendum I have discussed and was present for the essential components of the history, physical examination, diagnosis, and treatment plan with the resident. I agree with the patient's care as documented by the resident and amended herein by me. Sidney Gallardo, DO. Patient seen and evaluated this AM. No acute events overnight, vital signs stable, patient afebrile, patient presently on nasal cannula, 2 L, SpO2 94%, labs largely unremarkable, troponin 0.104, A1c 6.6. Patient actually states subjectively he feels very well and was asking when he could go home. Will continue heparin drip at this time however most likely transition to Eliquis tomorrow, hepatitis panel pending, echo pending, VQ scan ordered and pending, tumor markers ordered, JAK2 ordered, hypercoagulability panel ordered, will perform ambulatory SpO2 testing prior to discharge, will also consider consulting Dr. Whitlock for possible colonoscopy however likely can be compost in the outpatient setting due to the fact the patient did endorse 15 pound weight loss recently which was unintentional. Will continue to replete electrolytes and monitor closely while he is here. Although this document has been carefully reviewed, there may still be some phonetic and other typographical errors. These errors are purely grammatical due to imperfections in the software program and should not be construed in any way to compromise the substance of the patient's medical care during this visit.
--- NOTE | 2024-11-06 12:52 | PC.SS ---
Zarina Pillai is 43 year old male admitted to [facility] for Bilateral Ped. SS conducted bedside contact with the patient to complete initial assessment and to discuss discharge planning.? SW used all precautionary measures to complete initial. Role and reason for the contact was explained to Zarina. Pt is alert and oriented times 4. Pt gave verbal authorization for Gila Pillai, spouse, to be present while assessment was conducted. Pt spoke had limited Georgian skills; Gila assisted when needed Patient confirmed demographic information confirming information correct on facesheet. Pt lives with spouse. Patient identifies Gila Pillai, spouse [phone], as his surrogate decision maker. Pt states prior to hospitalization he is able to complete all ADL?s independently. Pt does not use DME, Pt was on O2 at time of assessment. Pt does not have O2 services at home; if needed pt is open to any provider. Pt confirmed no history of mental health or substance abuse. Pts PCP is Ric Sanchez. Pharmacy of choice is [facility]. Discharge options discussed and the pt will return home. Family will provide transportation upon DC. No further intervention required at this time, social media senior associate would be available to address any further concerns. DC Plan: Home Contact: Gila Pillai, spouse [phone] Address: Confirmed on face sheet PCP: Ric Sanchez
[2024-11-06 22:08] LABS: Hepatitis A Antibody IgM Non Reactive (Non React); Hepatitis B Core Antibody IgM Non Reactive (Non React); Hepatitis B Surface Antigen Non Reactive (Non React); Hepatitis C Antibody Non Reactive (Non React)
[2024-11-07] VITALS (8 sets, daily range): BP systolic 108–127; BP diastolic 73–90; PULSE 75–100; RESP 17–93; TEMP 35.9–36.6; O2SAT 93–95; BMI 28.0
[2024-11-07 05:57] LABS: Misc Send Out* See Sep Rpt
[2024-11-07 06:09] LABS: Basophils % (Auto) 0 % (0-2.5); Eosinophils # (Auto) 0.3 Thou/mm3 (0.0-0.5); Eosinophils % (Auto) 3 % (0-10); Hematocrit 46.3 % (41.0-53.0); Hemoglobin 15.3 g/dL (13.5-16.0); Immature Granulocytes % (Auto) 0 % (0-0); Immature Granulocytes Auto 0.03 Thou/mm3 (0.00-0.00); Lymphocytes # (Auto) 3.1 Thou/mm3 (1.0-4.8); Lymphocytes % (Auto) 31 % (10-50); Mean Corpuscular Volume 79 fL (80-100); Monocytes # (Auto) 0.7 Thou/mm3 (0.0-0.8); Monocytes % (Auto) 6 % (0-12); Neutrophils # (Auto) 6.1 Thou/mm3 (1.8-7.7); Neutrophils % (Auto) 60 % (37-80); Nucleated Red Blood Cell % 0 /100 WBC (0); Platelet Count 278 Thou/mm3 (140-440); RDW Standard Deviation 40.5 fL (35.1-43.9); Red Blood Count 5.88 Miln/mm3 (4.50-5.90); White Blood Count 10.2 Thou/mm3 (3.8-10.6)
[2024-11-07 06:40] LABS: Alanine Aminotransferase 42 U/L (10-49); Albumin/Globulin Ratio 1.3 (1.2-2.2); Alkaline Phosphatase 86 U/L (46-116); Anion Gap 10 (7-16); Aspartate Amino Transferase 27 U/L (0-34); BUN/Creatinine Ratio 25 Ratio (12-20); Bilirubin,Total 0.5 mg/dL (0.3-1.2); Blood Urea Nitrogen 25 mg/dL (9-23); Calcium 9.5 mg/dL (8.3-10.6); Calcium (Corrected) 9.5 mg/dL (8.5-10.1); Carbon Dioxide 22.5 mMol/L (20.0-31.0); Chloride 112 mMol/L (98-107); Estimated Creatinine Clearance 119.7 mL/min (>60); Glucose 101 mg/dL (74-106); Magnesium 2.1 mg/dL (1.6-2.6); Osmolality,Calculated 291 (275-295); Phosphorous 2.9 mg/dL (2.4-5.1); Sodium 144 mMol/L (136-145); eGFR > 60 See Note
[2024-11-07 06:43] LABS: INR 1.1 (0.9-1.3); Prothrombin Time 12.2 Seconds (9.0-12.2)
[2024-11-07 07:28] LABS: Partial Thromboplastin Time 115.3 Seconds (22.0-36.0)
[2024-11-07] MEDS: PANTOPRAZOLE INJ 40 MG VIAL IVP (08:09)
--- NOTE | 2024-11-07 09:17 | XR_ITS ---
EXAMINATION: NM VQ scan HISTORY: Assess chronicity of b/L PEs (?CTEPH) COMPARISON: 11/05/2024, CTA pulmonary angiography protocol. 11/05/2024, chest radiographs and bilateral lower extremity ultrasound. TECHNIQUE: Ventilation and perfusion imaging performed using institutional nuclear medicine VQ scan protocol. 43.3 mCi Tc-99m DTPA 4.2 mCi Tc-99m MAA FINDINGS: There are multiple mismatched segmental perfusion defects throughout the bilateral lungs. These are most significant in the right upper, right middle, and left upper lobes. IMPRESSION: Multiple mismatch perfusion defects consistent with known pulmonary emboli as seen on recent CTPA protocol. Given clot appearance on CT and US findings, these represent an acute event. Given the acute disease process, chronic thromboembolic pulmonary hypertension cannot be excluded by VQ scan.
--- NOTE | 2024-11-07 09:33 | ESPR_ITS ---
Documentation for date of: 11/07/24 Subjective Subjective Interval history: 11/06/24 pt feels ok B/L PE on anticoagulation Exam Vital Signs Temp Pulse Resp BP Pulse Ox O2 Del Method O2 Flow Rate 96.9 F 88 19 127/90 H 95 Room Air 2 11/07/24 08:00 11/07/24 08:00 11/07/24 08:00 11/07/24 08:00 11/07/24 08:00 11/07/24 08:00 11/07/24 04:00 Routine HEENT Exam Head: Present normocephalic and atraumatic Eye: Present EOMI and PERRL ENT: Present mucous membranes moist Routine Neck Exam Neck: Present supple and trachea midline Routine Respiratory Exam Respiratory: Present chest non-tender, lungs clear, normal breath sounds and no resp distress Routine Cardiovascular Exam Cardiovascular: Present RRR Routine Abdominal Exam Abdominal: Present soft and normoactive bowel sounds Routine Extremities Exam Extremities: Present full ROM Routine Skin Exam Skin: Present intact, dry and warm Routine Neurological Exam Neurological: Present alert, oriented X3 and CN II-XII intact Routine Psychiatric Exam Psychiatric: Present normal affect and normal thought process Objective Labs 11/07/24 05:08 11/07/24 05:08 Labs: Laboratory Results - last 24 hr 11/05/24 11/06/24 11/07/24 18:44 06:11 05:08 WBC 10.2 RBC 5.88 Hgb 15.3 Hct 46.3 MCV 79 L MCH 26.0 MCHC 33.0 RDW Std Deviation 40.5 Plt Count 278 Neut % (Auto) 60 Lymph % (Auto) 31 Smyth % (Auto) 6 Eos % (Auto) 3 Baso % (Auto) 0 Neut # (Auto) 6.1 Lymph # (Auto) 3.1 Smyth # (Auto) 0.7 Eos # (Auto) 0.3 Baso # (Auto) 0.0 Immature Gran # (Auto) 0.03 H Absolute Nucleated RBC 0.00 Immature Gran % 0 Nucleated RBC % 0 PT 12.2 INR 1.1 APTT 115.3 H* D Sodium 141 144 Potassium 5.3 H D 4.0 D Chloride 112 H 112 H Carbon Dioxide 20.7 22.5 Anion Gap 8 10 BUN 22 25 H Creatinine 1.3 1.0 Estim Creat Clear Calc 92.3 119.7 eGFR > 60 > 60 BUN/Creatinine Ratio 17 25 H Glucose 104 101 Calculated Osmolality 284 291 Calcium 9.2 9.5 Corrected Calcium 9.2 9.5 Phosphorus 2.9 Magnesium 2.1 Total Bilirubin 0.6 0.5 AST 44 H 27 ALT 37 42 Alkaline Phosphatase 88 86 Troponin I 0.065 H* Total Protein 6.8 7.0 Albumin 4.1 D 4.0 Globulin 2.7 3.0 Albumin/Globulin Ratio 1.5 1.3 Carcinoembryonic Ag < 0.0 L CA 125 Antigen 6.0 Hepatitis A IgM Ab Non Reactive Hep Bs Antigen Non Reactive Hep B Core IgM Ab Non Reactive Hepatitis C Antibody Non Reactive Assessment & Plan A&P Narrative continue anticoagulation Time Spent With Patient Time: Total time spent is greater than 50% in coordination of care (as documented) at patient's floor/unit and/or counseling patient:
--- NOTE | 2024-11-07 09:34 | ESPR_ITS ---
Documentation for date of: 11/07/24 Subjective Subjective Interval history: feels ok start PO Eliquis Exam Vital Signs Temp Pulse Resp BP Pulse Ox O2 Del Method O2 Flow Rate 96.9 F 88 19 127/90 H 95 Room Air 2 11/07/24 08:00 11/07/24 08:00 11/07/24 08:00 11/07/24 08:00 11/07/24 08:00 11/07/24 08:00 11/07/24 04:00 Routine HEENT Exam Head: Present normocephalic and atraumatic Eye: Present EOMI and PERRL ENT: Present mucous membranes moist Routine Neck Exam Neck: Present supple and trachea midline Routine Respiratory Exam Respiratory: Present chest non-tender, lungs clear, normal breath sounds and no resp distress Routine Cardiovascular Exam Cardiovascular: Present RRR Routine Abdominal Exam Abdominal: Present soft and normoactive bowel sounds Routine Extremities Exam Extremities: Present full ROM Routine Skin Exam Skin: Present intact, dry and warm Routine Neurological Exam Neurological: Present alert, oriented X3 and CN II-XII intact Routine Psychiatric Exam Psychiatric: Present normal affect and normal thought process Objective Labs 11/07/24 05:08 11/07/24 05:08 Labs: Laboratory Results - last 24 hr 11/05/24 11/06/24 11/07/24 18:44 06:11 05:08 WBC 10.2 RBC 5.88 Hgb 15.3 Hct 46.3 MCV 79 L MCH 26.0 MCHC 33.0 RDW Std Deviation 40.5 Plt Count 278 Neut % (Auto) 60 Lymph % (Auto) 31 [place] % (Auto) 6 Eos % (Auto) 3 Baso % (Auto) 0 Neut # (Auto) 6.1 Lymph # (Auto) 3.1 [place] # (Auto) 0.7 Eos # (Auto) 0.3 Baso # (Auto) 0.0 Immature Gran # (Auto) 0.03 H Absolute Nucleated RBC 0.00 Immature Gran % 0 Nucleated RBC % 0 PT 12.2 INR 1.1 APTT 115.3 H* D Sodium 141 144 Potassium 5.3 H D 4.0 D Chloride 112 H 112 H Carbon Dioxide 20.7 22.5 Anion Gap 8 10 BUN 22 25 H Creatinine 1.3 1.0 Estim Creat Clear Calc 92.3 119.7 eGFR > 60 > 60 BUN/Creatinine Ratio 17 25 H Glucose 104 101 Calculated Osmolality 284 291 Calcium 9.2 9.5 Corrected Calcium 9.2 9.5 Phosphorus 2.9 Magnesium 2.1 Total Bilirubin 0.6 0.5 AST 44 H 27 ALT 37 42 Alkaline Phosphatase 88 86 Troponin I 0.065 H* Total Protein 6.8 7.0 Albumin 4.1 D 4.0 Globulin 2.7 3.0 Albumin/Globulin Ratio 1.5 1.3 Carcinoembryonic Ag < 0.0 L CA 125 Antigen 6.0 Hepatitis A IgM Ab Non Reactive Hep Bs Antigen Non Reactive Hep B Core IgM Ab Non Reactive Hepatitis C Antibody Non Reactive Assessment & Plan A&P Narrative continue anticoagulation PO eliquis to start Time Spent With Patient Time: Total time spent is greater than 50% in coordination of care (as documented) at patient's floor/unit and/or counseling patient:
[2024-11-07 10:45] LABS: Partial Thromboplastin Time 64.3 Seconds (22.0-36.0)
[2024-11-07] MEDS: APIXABAN 2.5 MG TABLET 10 MG PO (11:21)
[2024-11-07 12:38] LABS: Cocci Serology, IgG Negative (Negative)
--- NOTE | 2024-11-07 13:05 | ECHO_ITS ---
Transthoracic Echo Report Ht (in): 74 Wt (lb): 218 Exam Location: Echo Lab Status: Inpatient [facility] Programmer: JACLYN Piper^^^^ Indications: Procedure Performed: BP: 128 / 78 HR: 78 Technical Quality: Fair MEASUREMENTS (Male / Female) Normal Values 2D ECHO LV Diastolic Diameter PLAX 4.3 cm 4.2 - 5.9 / 3.9 - 5.3 cm LV Systolic Diameter PLAX 2.8 cm IVS Diastolic Thickness 0.9 cm 0.6 - 1.0 / 0.6 - 0.9 cm LVPW Diastolic Thickness 0.9 cm 0.6 - 1.0 / 0.6 - 0.9 cm LV Relative Wall Thickness 0.4 LVOT Diameter 2.1 cm Aortic Root Diameter 3.4 cm LA Systolic Diameter LX 2.7 cm 3.0 - 4.0 / 2.7 - 3.8 cm LV Ejection Fraction MOD BP 61.1 % >= 55 % LV Cardiac Index MOD BP 2332.2 cm?/min?m? LV Ejection Fraction MOD 4C 67.1 % LV Cardiac Index MOD 4C 3225.5 cm?/min?m? LV Ejection Fraction 4C AL 67.8 % LV Cardiac Index 4C AL 3363.7 cm?/min?m? LV Ejection Fraction MOD 2C 54.6 % LV Cardiac Index MOD 2C 1626.4 cm?/min?m? LV Ejection Fraction 2C AL 56.7 % LV Cardiac Index 2C AL 1715.5 cm?/min?m? LA Volume Index 18.9 cm?/m? 16 - 28 cm?/m? DOPPLER AV Peak Velocity 105.7 cm/s AV Peak Gradient 4.5 mmHg AV Mean Gradient 3.5 mmHg AV Velocity Time Integral 19.9 cm LVOT Peak Velocity 61.3 cm/s LVOT Peak Gradient 1.5 mmHg LVOT Velocity Time Integral 12.7 cm LVOT Cardiac Index 1499.8 cm?/min?m? AV Area Cont Eq vti 2.2 cm? AV Area Cont Eq pk 2.0 cm? MV Area PHT 2.8 cm? Mitral E Point Velocity 30.0 cm/s Mitral A Point Velocity 64.6 cm/s Mitral E to A Ratio 0.5 LV E' Lateral Velocity 8.0 cm/s Mitral E to LV E' Lateral Ratio 3.8 LV E' Septal Velocity 5.9 cm/s Mitral E to LV E' Septal Ratio 5.1 TR Peak Velocity 387.3 cm/s TR Peak Gradient 60.0 mmHg FINDINGS Left Ventricle Normal left ventricular size, wall thickness, systolic function with no obvious regional wall motion abnormalities.there is grade I diastolic dysfunction of the left ventricle. The left ventricular ejection fraction is normal, estimated at 55-60%. Right Ventricle There is right ventricular enlargement consistent with right ventricular volume overload. Estimated right ventricular systolic pressure is severely elevated, 95 mmHg. Left Atrium The left atrium is normal by two-dimensional, color flow and Doppler imaging with no structural abnormalities, no thrombus formation present. Right Atrium The right atrial cavity size is moderately increased. Atrial Septum The interatrial septum appears normal with no evidence of a shunt. Aorta The aorta is normal by two-dimensional, color flow and Doppler interrogation. Mitral Valve Trace to mild mitral regurgitation. Mild mitral annular calcification. Aortic Valve The aortic valve is trileaflet and normal to two-dimensional, color flow and Doppler interrogation. Tricuspid Valve There is severe tricuspid regurgitation. Pulmonic Valve Trivial pulmonic valve regurgitation. Vessels Dilated inferior vena cava with poor inspiration collapse consistent with elevated right atrial pressure. Pericardium The pericardium is normal by two-dimensional imaging. There is no significant pericardial effusion. CONCLUSIONS indication: bilateral PE Normal left ventricular size and function. pproximate ejection fraction is 55%. Right ventricle is dilated with paradoxical septal motion Severe Pulmonary hypertension PA systolic Pressure of 95 mmHg. Right atrium is dilated. Trace mitral and mild tricuspid regurgitation TR velocity 4.5 m/sec IVC dilated Fouzia Joselito (Electronically Signed) Final Date: 07 November 2024 14:16
--- NOTE | 2024-11-07 15:27 | ESDS_ITS ---
<Statement entered by Laquita Goldsmith MD - 11/07/24 16:51> Patient was seen and examined by me personally. I agree with the assessment and plan as discussed with the global marketing intern physician, and my attending, Dr. Gallardo. 43-year-old male with no past medical history admitted for SOB, found to have bilateral DVT & PE, and started on heparin drip. Concern for erythrocytosis, therefore workup ordered, including JAK2, EPO, CA 19?9, APL, AT3, cardiolipin, factor V [place], homocystine, lupus anticoagulant, protein C & S. Echo was taken to evaluate right ventricle, demonstrated severe strain and pulmonary hypertension. Discussed with cardiology who recommended transfer for thrombectomy and evaluation due to high concern for CTEPH. Goal is to transfer patient to [facility]. Family was updated at bedside. Laquita Goldsmith MD, PGY-3 Planned Discharge Date 11/07/24 DS: Providers Provider Date of admission: 11/05/24 13:02 Primary care physician: Ric Sanchez PA-C Admitting Provider: Asad Gallardo DO Attending Provider on Admission: Asad Gallardo DO Consults: 11/05/24 13:11 Consult to Cardiology Routine Comment: Consulting Provider: Lamont Ferro Attending Provider on DC: Kishan Bnejamin MD Discharging Provider: Kishan Benjamin MD DS: Diagnosis Problem List Completed Was Problem List Reviewed/Reconciled?: Yes Hospital Course Hospital Course Hospital course: Mr. Pillai is a 43-year-old male with no significant past medical history presented to [facility] ED on 11/05/24 complaining of substernal chest pain and shortness of breath. Patient had a chest trauma with rib fracture approximately a year ago since then he has been experiencing chest pain which has progressively worsened with worsening shortness of breath. Initially patient presented with tachycardia and tachypnea and hypoxia requiring supplemental oxygen via nasal cannula. Patient also had unintentional 15 pound weight lost in the last couple months. Chest CTA was ordered which showed multiple large bilateral pulmonary artery emboli in the main pulmonary arteries right and left upper lobe pulmonary artery branches. Bilateral lower extremities Doppler ultrasound showed extensive bilateral DVTs in the right superficial femoral and right peroneal veins as well as left superficial femoral and popliteal and peroneal veins. Patient was admitted and started on heparin drip, hypercoagulable workup was ordered which is still pending. Patient's CBC, CMP is unremarkable. Echocardiogram was ordered which showed severe pulmonary hypertension, In house mini lab operator recommended urgent transfer for thrombectomy as patient is high risk for surgery. Echo done on 11/07/24 Normal left ventricular size and function. approximate ejection fraction is 55%. Right ventricle is dilated with paradoxical septal motion Severe Pulmonary hypertension PA systolic Pressure of 95 mmHg. Right atrium is dilated. Trace mitral and mild tricuspid regurgitation TR velocity 4.5 m/sec IVC dilated #Bilateral pulmonary emboli #Bilateral DVT #Erythrocytosis #NSTEMI, likely type II in setting of PE Assessment and plan discussed with my senior resident Dr. Goldsmith & attending physician Dr. Paulina Benjamin (PGY-1)- Internal medicine resident Status at Discharge Cognitive/behavioral status at discharge: AAOx3 Time Spent with Patient Time attestation: Total time spent providing and/or coordinating discharge services: Time spent: Greater than 30 minutes Exam Vital Signs Temp Pulse Resp BP Pulse Ox O2 Del Method O2 Flow Rate 97.5 F 86 17 108/81 93 L Room Air 2 11/07/24 11:56 11/07/24 12:17 11/07/24 12:17 11/07/24 11:56 11/07/24 11:56 11/07/24 11:56 11/07/24 04:00 Narrative Exam GENERAL: A&Ox3 . Awake, Not in acute distress NEURO: no focal neurological deficits HEENT: Atraumatic, Normocephalic. mucous membranes moist. Eyes open, symmetrical, & clear HEART: loud systolic murmur heard LUNGS: Clear to auscultation with no wheezing or crackles. ABDOMEN: soft, non-distended, non-tender, bowel sounds heard, no guarding or rebound tenderness SKIN: No Rash or ecchymoses EXTREMITIES: left calf edema noted, no tenderness, able to move all 4 extremities, pedal pulses palpated Discharge Plan Plan Patient Disposition: HOME (Self Care) Patient condition on transfer: Stable Care Plan Goals: Continue Eliquis 10 mg twice daily for 3 weeks/21 days and then switch to Eliquis 5 mg twice daily for PE Your A1c came out 6.6 recommended to follow-up on repeat A1c as outpatient with PCP and modify diet Follow-up factor V, Antithrombin III, prothrombin and lupus anticoagulant workup Follow-up with mini lab operator, Dr. Fox By scheduling an appointment on [phone]. Located at [address] [place] [address] within a week Follow-up with PCP as outpatient within 2 weeks Prescriptions/Referrals Prescriptions/Med Rec: New Eliquis 5 mg tablet 10 mg PO BID 21 Days Qty: 84 0RF Rx Instructions: Continue Eliquis 10 mg twice daily for 21 days Eliquis 5 mg tablet 5 mg PO BID Qty: 90 0RF Rx Instructions: After completing 10 mg dose of Eliquis, start 5 mg dose of Eliquis twice daily. Referrals: Sebastian Fox MD [Physician] - Ric Sanchez PA-C [Primary Care Provider] - Patient/Caregiver Discharge Instructions Education Materials: A1C, Diabetes and Heart Disease, Long-Term Complications of Diabetes, Healthy Meals for Diabetes, Diabetes: Meal Planning, Diabetes Carbs Fats Protein, Diabetes and High Blood Pressure Print Language: Omani Stand Alone Forms: [employer] Award Info., Patient Portal Info Letter Discharge Order Discharge Orders: Discharge (Routine); Ordered 11/12/24 Ordered By: Harry Maldonado Quality Discharge Quality Measures VTE prophylaxis Attestestation Attestation Patient already for discharge today as expected, please refer to 11/07 progress note
[2024-11-07 16:44] LABS: INR 1.1 (0.9-1.3); Partial Thromboplastin Time 29.8 Seconds (22.0-36.0); Prothrombin Time 11.9 Seconds (9.0-12.2)
--- NOTE | 2024-11-07 17:56 | ESCONSULT_ITS ---
HPI Data of Consult Patient: new to practice Consult date: 11/07/24 Requesting Physician: Asad Gallardo DO Admitting Provider: Asad Gallardo DO Attending Provider: Sebastian Fox MD Primary Care Provider: Ric Sanchez PA-C Consult Narrative Reason for consult: Bilateral massive pulmonary emboli History of present illness: Mr. Pillai is a 43-year-old male with history of right foot fracture 3 years ago and rib fracture 1 year ago who presented to [facility] emergency department on 11/05/2024 with a chief complaint of substernal chest pain. Patient on presentation complained of substernal chest pain, nonradiating, persistent for the last 1 week. Patient stated that approximately a year ago he had chest trauma was diagnosed with rib fracture and has had chest pain since then, reported worsening of chest pain recently and also complained of increased shortness of breath endorsed that most of his symptoms started about a year ago, reports that he is unable to run yet able to do most of activities including climbing stairs. Patient did report recent worsening of symptoms that led him to follow-up in the emergency department. Patient also complained of intermittent swelling of right lower extremity, denies any pain or redness that he has noted. 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 Patient also endorsed history of frequent air travel to [place] about every 3 months on 2 hour-long flight frequently. He also complained of 15 pound weight loss unintentionally recently as well. Patient otherwise denies any dizziness, diaphoresis, orthopnea, PND, falls, nausea, vomiting or syncope. ED Course: ED Vitals: On presentation emergency department vitals significant for blood pressure 124/85, heart rate 105, respiratory rate 19, temp 98.3, O2 sat 92 on room air ED Labs:On presentation ED labs significant for WBC 10.9, RBC 6.60, hemoglobin 17.1, hematocrit 52.0, MCV 79, MCH 25.9, MCHC 32.9, platelet 293, sodium 140, potassium 4.7, chloride 109, venous CO2 24.1, BUN 18, creatinine 1.2, GFR more than 60, glucose 126, calcium 9.9, AST 24, ALT 39, troponin I 0.077, BNP 287, total protein 8.1, albumin 4.8, lipase 50 ED Imaging:EKG in emergency department showed sinus rhythm, heart rate 98 T wave inversion in V1?V3, inverted T wave in leads II, III, aVF and incomplete right bundle branch block. Chest x-ray showed no active disease. Chest CTA showed multiple large bilateral pulmonary artery emboli Venous Doppler bilateral showed Extensive bilateral lower extremity deep vein thrombus ED Treatment: Patient was given aspirin 324 x 1, heparin 4000 units x 1 and was started on heparin drip in the emergency department Initially cardiology was consulted, was following patient closely, clinically patient looks stable was transition to p.o. Eliquis for further management, patient's echocardiogram on 11/07/2024 showed Normal left ventricular size and function, approximate ejection fraction is 55%. Right ventricle is dilated with paradoxical septal motion Severe Pulmonary hypertension PA systolic Pressure of 95 mmHg. Right atrium is dilated. Trace mitral and mild tricuspid regurgitation TR velocity 4.5 m/sec IVC dilated. Patient's VQ scan also showed multiple mismatch perfusion defects consistent with known pulmonary emboli. Team discussion with senior talent management consultant and cardiology was held, decision was made to perform right heart cath on patient to measure right heart pressures accurately and perform pulmonary angiogram to evaluate clots and to perform mechanical thrombectomy if needed. Case was discussed with patient and patient's family and was explained in detail. Considering that patient did receive Eliquis p.o. yesterday, procedure will be performed 48 hours later. cc:: cc: Asad Gallardo, Review of Systems Review of Systems Narrative Review of Systems: ROS: -CONSTITUTIONAL: Denies weight loss, fever and chills. -HEENT: Denies changes in vision and hearing. -RESPIRATORY: Positive for SOB and denies cough. -CV: Denies palpitations and Chest Pain. Positive for chest pain on presentation. -GI: Denies abdominal pain, nausea, vomiting,constipation and diarrhea. -: Denies dysuria and urinary frequency. -MSK: Denies myalgia and joint pain. -SKIN: Denies rash and pruritus. -NEUROLOGICAL: Denies headache and syncope. -PSYCHIATRIC: Denies recent changes in mood. Denies anxiety and depression. 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 Exam Vital Signs Temp Pulse Resp BP Pulse Ox O2 Del Method O2 Flow Rate 97.4 F 80 22 H 124/85 H 94 L Room Air 2 11/07/24 16:00 11/07/24 16:00 11/07/24 16:00 11/07/24 16:00 11/07/24 16:00 11/07/24 16:00 11/07/24 04:00 Narrative Exam LPhysical Exam General: Awake and in no acute distress. Conversational and non-toxic appearing. HEENT: Normocephalic, atraumatic, mucous membranes moist. Heart: Regular rate and rhythm, positive systolic murmur. Lungs: Clear to auscultation with no wheezing or crackles. Abdomen: Soft, nondistended, nontender, positive bowel sounds. ?No guarding or rebound tenderness. Neurologic: Alert and oriented x3, no gross neurological deficit, and patient able to move all 4 extremities. Extremities: No edema. Skin: No rash or ecchymoses. Results Labs 11/08/24 05:42 11/08/24 05:42 Labs: Short CBC 11/07/24 Range/Units 05:08 WBC 10.2 (3.8-10.6) Thou/mm3 Hgb 15.3 (13.5-16.0) g/dL Hct 46.3 (41.0-53.0) % Plt Count 278 (140-440) Thou/mm3 BMP 11/07/24 05:08 Sodium 144 Potassium 4.0 D Chloride 112 H Carbon Dioxide 22.5 BUN 25 H Creatinine 1.0 Glucose 101 Calcium 9.5 Liver Function 11/07/24 Range/Units 05:08 Total Bilirubin 0.5 (0.3-1.2) mg/dL AST 27 (0-34) U/L ALT 42 (10-49) U/L Alkaline Phosphatase 86 (46-116) U/L Albumin 4.0 (3.5-5.0) gm/dL Quality Measures Quality Measures VTE prophylaxis Medications Home Medications and Allergies Home Medications ?Medication ?Instructions ?Recorded ?Confirmed ?Type No Known Home Medications 11/05/24 030 04/24 History Allergies Allergy/AdvReac Type Severity Reaction Status Date / Time No Known Allergies Allergy Unverified 11/05/24 12:16 Visit Medications Acetaminophen (Acetaminophen 325 Mg Tablet) 650 mg PO Q6H PRN PRN Reason: Fever >100.3 Stop: 12/05/24 13:01 Hydrocodone Bitart/Acetaminophen (Hydrocodone/Apap 5/325 Tablet) 1 tab PO Q4HR PRN PRN Reason: PAIN SCALE 4-6 (Moderate Stop: 11/10/24 13:09 Heparin Sodium/Dextrose (Heparin In D5w Ivpb) 25,000 unit in 250 mls @ 17.799 mls/hr IV .Q14H3M [facility]; Protocol Stop: 11/21/24 23:20 Ondansetron HCl (Ondansetron Inj 2 Mg/Ml Inj 2 Ml) 4 mg IV Q6H PRN; Protocol PRN Reason: NAUSEA OR VOMITING Stop: 12/05/24 13:09 Pantoprazole Sodium (Pantoprazole Inj 40 Mg Vial) 40 mg IVP QDAY [facility] Stop: 12/05/24 13:14 Last Admin: 11/07/24 08:09 Dose: 40 mg Sennosides (Senna Tablet) 1 tab PO QDAY PRN; Protocol PRN Reason: constipation Stop: 12/05/24 13:09 Discontinued Medications Acetaminophen (Acetaminophen 325 Mg Tablet) 650 mg PO Q6H PRN PRN Reason: Fever >101.5 Stop: 12/05/24 13:01 Apixaban (Apixaban 2.5 Mg Tablet) 10 mg PO BID [facility] Stop: 11/13/24 21:01 Last Admin: 11/07/24 11:21 Dose: 10 mg Aspirin (Aspirin 81 Mg Chew) 324 mg PO X1 ONE Stop: 11/05/24 10:50 Last Admin: 11/05/24 11:09 Dose: 324 mg Heparin Sodium (Porcine) (Heparin Sod Inj 5000 Unit/Ml Vial) 4,000 unit IV X1 ONE; Protocol Stop: 11/05/24 11:33 Last Admin: 11/05/24 12:11 Dose: 4,000 unit Heparin Sodium (Porcine) (Heparin Sod Inj 5000 Unit/Ml Vial) 4,000 unit IVP X1 ONE Stop: 11/05/24 19:46 Last Admin: 11/05/24 19:50 Dose: 4,000 unit Heparin Sodium/Dextrose (Heparin In D5w Ivpb) 25,000 unit in 250 mls @ 10 mls/hr IV .Q24H [facility]; Protocol Stop: 11/19/24 12:29 Last Titration: 11/06/24 00:20 Dose: 0 units/kg/hr, 0 mls/hr Heparin Sodium/Dextrose (Heparin In D5w Ivpb) 25,000 unit in 250 mls @ 17.639 mls/hr IV .[id number] [facility]; Protocol Stop: 11/19/24 12:29 Last Titration: 11/07/24 08:29 Dose: 15 unit/kg/hr, 14.699 mls/hr Assessment & Plan Plan Assessment and plan: Summary: Mr. Pillai is a 43-year-old male with history of right foot fracture 3 years ago and rib fracture 1 year ago who presented to [facility] emergency department on 11/05/2024 with a chief complaint of substernal chest pain. Patient found to have multiple large bilateral pulmonary artery emboli on CTA, admitted to hospital for further management. # Bilateral pulmonary artery emboli # Intermediate?low risk PE # Right heart strain # Severe pulmonary hypertension, concern of CTEPH Patient hemodynamically stable had mild tachycardia, respiratory rate less than 30 throughout hospitalization, no history of heart failure or lung disease. 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 Patient also endorsed history of frequent air travel to [place] about every 3 months on 2 hour-long flight frequently. He also complained of 15 pound weight loss unintentionally recently as well. On presentation CTA showed multiple large bilateral pulmonary artery emboli EKG in emergency department showed sinus rhythm, heart rate 98 T wave inversion in V1?V3, inverted T wave in leads II, III, aVF and incomplete right bundle branch block. Echocardiogram on 11/07/2024 showed Normal left ventricular size and function, approximate ejection fraction is 55%. Right ventricle is dilated with paradoxical septal motion Severe Pulmonary hypertension PA systolic Pressure of 95 mmHg. Right atrium is dilated. Trace mitral and mild tricuspid regurgitation TR velocity 4.5 m/sec IVC dilated. Patient's VQ scan also showed multiple mismatch perfusion defects consistent with known pulmonary emboli. PESI score 73 points, class II, low risk 1.7-3.5% 30-day mortality in this group, right heart strain, dilated right ventricle with paradoxical septal motion and severe pulmonary hypertension, right atrium dilation noted on TTE, patient has intermediate-low risk PE. Team discussion with senior talent management consultant and cardiology was held, decision was made to perform right heart cath on patient to measure right heart pressures accurately and perform pulmonary angiogram to evaluate clots and to perform mechanical thrombectomy if needed. Case was discussed with patient and patient's family and was explained in detail. Considering that patient did receive Eliquis p.o. yesterday, procedure will be performed 48 hours later. Recommendations: -Scheduled for right heart cath on 11/09/2024 to assess right heart pressure accurately -Will perform pulmonary angiogram to evaluate clots and perform mechanical thrombectomy as needed -Continue heparin drip -Close monitoring -Follow-up factor V, Antithrombin III, prothrombin and lupus anticoagulant workup -Patient will need outpatient workup to rule out other causes of DVT/PE # NSTEMI type II demand ischemia, likely secondary to PE # Elevated troponin Patient did not endorse chest pain on presentation, substernal. Troponin 0.077 - > 0.066 -> 0.085 -> 0.104 -> 0.065; EKG showed sinus rhythm, heart rate 98 T wave inversion in V1?V3, inverted T wave in leads II, III, aVF and incomplete right bundle branch block. Patient's elevated troponin likely in setting of pulmonary embolism. # New onset diabetes mellitus Patient's hemoglobin A1c 6.6 during hospitalization, otherwise blood glucose has been in the range of 100-120, did have polycythemia on presentation, hemoglobin 17.1, denies smoking. Consider repeating A1c outpatient, outpatient workup/management for diabetes. #Polycythemia Patient's hemoglobin 17.1 on presentation, patient denies smoking, possible in setting of chronic hypoxia considering patient had longstanding chest pain. Polycythemia workup-Aryan, erythropoietin ordered by primary care team Thank you for the consult and allowing to participate in the care of the patient. Cardiology will continue to follow. Case discussed with Attending Dr. Fox. Kimmie Diamond PGY1 Disclaimer: This note was dictated by speech recognition. Minor errors in lawyer may be present due to voice recognition software. Attending Provider Attestation/Addendum I have personally seen and examined the patient separately on the above date of service and discussed the plan of care with the resident. I reviewed the resident Dr. Kimmie Diamond consultation progress note and agree with the resident findings and plan in the note above and have also edited the documentation to reflect my findings and plan. A 43-year-old male patient with a past medical history of right hip fracture 3 years ago as well as rib fractures 1 year ago presented to the hospital for worsening shortness of breath as well as chest pain for the past day but has been having worsening shortness of breath over the past couple of weeks. 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 And recently patient did go to [place] and returned back and since his return patient has been having shortness of breath over the past 2 to 3 weeks which actually worsened over the day or 2 before the admission and he could not even walk few steps and hence came to the emergency department for further evaluation. Patient also did notice bilateral leg swelling worse on the right compared to the left. Denies any kind of chest pressure or palpitations or PND or dizziness or syncope or fall. Patient did complain of some 15 pound weight loss also in the last few months and is mostly unintentional. Admission patient was mildly hypoxic and tachycardic at 105 bpm blood pressure was 1 2485 mmHg, saturation was 90% on room air and patient was placed on oxygen via nasal cannula initially at 6 L/min regular 4 m/min. WBC was 10.9 hemoglobin 17 hematocrit 52 BUN was 18 and creatinine was 1.2. Troponin was elevated 0.07. BNP is also elevated to 87. LFTs appeared normal. EKG showed normal sinus rhythm and with S1Q3T3 pattern. Chest x-ray did not show any acute disease and chest CT showed multiple large bilateral pulmonary artery emboli. Venous Doppler showed bilateral extensive DVT involving occlusive deep vein thrombus of right superficial femoral right peroneal and left superficial femoral, left popliteal and left peroneal veins. Patient was admitted to the hospital and cardiology was consulted and echo was recommended which showed the following findings. Patient was treated with heparin drip and was recommended to transition to Eliquis. Assessment and plan: 1. Acute hypoxic respiratory failure mostly secondary to acute PE in the setting of DVT , cannot rule out underlying CTEPH. 2. Acute pulmonary embolism-bilateral right and left main PA and lobar arteries. 3. Acute bilateral lower extremity DVT 4. Moderate to severe pulmonary hypertension by echo RVSP. 5. Mild elevated troponins-NSTEMI type II mostly secondary to supply/demand mismatch in the setting of PE. 6. New onset diabetes mellitus- 7. Polycythemia-unclear etiology 8. Unintentional weight loss 9. Right heart strain with mildly elevated BNP Patient was admitted to the hospital and cardiology was consulted and echo was recommended which showed the following findings. Patient was treated with heparin drip and was recommended to transition to Eliquis. There was a question of acute PE versus CTEPH. Echocardiogram could not be performed until after the weekend. Echo performed on 11/07/2024 showed normal LV size and function with an estimated EF 55 to 60%. Normal LV function but RV is dilated with paradoxical septal motion. Severe PAH with a PA systolic pressure measured up to 90 mmHg. Maximal TR velocity 4.5 m/s. Right atrium is dilated. Mild to moderate TR noted. IVC is dilated. Trace MR. A VQ scan was eventually performed as per the recommendations of pulmonary as well as cardiology which showed multiple mismatched perfusion defects consistent with pulmonary embolism mostly acute process but could not rule out component of CTEPH. Patient presentation all the imaging findings along with the lab findings were discussed in detail with the PERT team including pulmonary as well as the cardiologists on board and decision was made to perform right heart cardiac catheterization with measurements of right heart pressures and then perform pulmonary angiogram to evaluate pulmonary embolism. Based on the findings, plan was to perform mechanical thrombectomy as it was deemed to be helpful for the patient given more acute clot based on the VQ scan also his overall presentation. He does meet criteria for intermediate risk PE with elevated BNP, troponin, right heart strain as well as dilated RV: LV at 1.1: 1, hypoxia. Patient, , rest of the family explained the risk benefits and alternatives of performing right heart cardiac catheterization, pulmonary angiogram as well as mechanical thrombectomy with penumbra device at this institution including the risks of bleeding, pulmonary hemorrhage, pulmonary vascular injury, heart attack, worsening respiratory failure requiring intubation and mechanical ventilation including and device related in detail with the patient. Patient understands all the risks and benefits for the procedure and provided consent for the procedure. at the bedside and had multiple questions which were all answered to their satisfaction. Patient received 10 mg of Eliquis today afternoon at 11 AM and hence will wait for 48 hours from last dose of Eliquis and will plan for procedure on witnessed a 11/09/2024 afternoon around 12 PM. Patient to be n.p.o. after 11/08/2024. Recommend to stop the Eliquis completely and continue heparin drip until the procedure. The primary team did send hypercoagulable workup but only the gene mutations including prothrombin and factor V Leiden along with lupus anticoagulant are accurate. Rest of the hypercoagulable workup including protein C S and other coagulation factors will not be accurate due to the acute consumption of the coagulation factors and would recommend to ignore the results at the present point of time. Patient will need complete workup after 8 weeks of stopping anticoagulation which can be done later as outpatient after he completes full therapy for his PE and DVT. Management of rest of the medical conditions as per primary team and other consultants. Thank you for the consult and allowing me to participate in the care of the patient. Cardiology will continue to follow. Sebastian Fox M.D. Interventional Cardiology
--- NOTE | 2024-11-07 18:30 | PD.RESPRO ---
Documentation for date of: 11/07/24 Subjective Subjective Interval history: Patient seen and examined at bedside this morning. No acute overnight events. He states his SOB feels little bit better and was able to go to the bathroom without any oxygen. Pending VQ scan and echo today, which will help determine disposition. Will transition to Eliquis 10 mg twice daily x 7 days, followed by Eliquis 5 mg twice daily to complete 3-month course. Family at bedside with opportunity ask questions, which were answered to their satisfaction. Exam Vital Signs Temp Pulse Resp BP Pulse Ox O2 Del Method O2 Flow Rate 97.4 F 80 22 H 124/85 H 94 L Room Air 2 11/07/24 16:00 11/07/24 16:00 11/07/24 16:00 11/07/24 16:00 11/07/24 16:00 11/07/24 16:00 11/07/24 04:00 Narrative Exam GENERAL: A&Ox3 . Awake, pleasant to speak with NEURO: no focal neurological deficits HEENT: Atraumatic, Normocephalic. mucous membranes moist. Eyes open, symmetrical, & clear HEART: loud systolic murmur heard LUNGS: Clear to auscultation with no wheezing or crackles. ABDOMEN: soft, non-distended, non-tender, bowel sounds heard, no guarding or rebound tenderness SKIN: No Rash or ecchymoses EXTREMITIES: left calf edema noted, no tenderness, able to move all 4 extremities, pedal pulses palpated Objective Labs 11/08/24 05:42 11/08/24 05:42 Labs: Laboratory Results - last 24 hr 11/05/24 11/05/24 11/07/24 13:27 18:44 05:08 WBC 10.2 RBC 5.88 Hgb 15.3 Hct 46.3 MCV 79 L MCH 26.0 MCHC 33.0 RDW Std Deviation 40.5 Plt Count 278 Neut % (Auto) 60 Lymph % (Auto) 31 [place] % (Auto) 6 Eos % (Auto) 3 Baso % (Auto) 0 Neut # (Auto) 6.1 Lymph # (Auto) 3.1 [place] # (Auto) 0.7 Eos # (Auto) 0.3 Baso # (Auto) 0.0 Immature Gran # (Auto) 0.03 H Absolute Nucleated RBC 0.00 Immature Gran % 0 Nucleated RBC % 0 PT 12.2 INR 1.1 APTT 115.3 H* D Sodium 144 Potassium 4.0 D Chloride 112 H Carbon Dioxide 22.5 Anion Gap 10 BUN 25 H Creatinine 1.0 Estim Creat Clear Calc 119.7 eGFR > 60 BUN/Creatinine Ratio 25 H Glucose 101 Calculated Osmolality 291 Calcium 9.5 Corrected Calcium 9.5 Phosphorus 2.9 Magnesium 2.1 Total Bilirubin 0.5 AST 27 ALT 42 Alkaline Phosphatase 86 Total Protein 7.0 Albumin 4.0 Globulin 3.0 Albumin/Globulin Ratio 1.3 Coccidioides IgG Ab Negative Hepatitis A IgM Ab Non Reactive Hep Bs Antigen Non Reactive Hep B Core IgM Ab Non Reactive Hepatitis C Antibody Non Reactive 11/07/24 11/07/24 09:32 15:12 WBC RBC Hgb Hct MCV MCH MCHC RDW Std Deviation Plt Count Neut % (Auto) Lymph % (Auto) [place] % (Auto) Eos % (Auto) Baso % (Auto) Neut # (Auto) Lymph # (Auto) [place] # (Auto) Eos # (Auto) Baso # (Auto) Immature Gran # (Auto) Absolute Nucleated RBC Immature Gran % Nucleated RBC % PT 11.9 INR 1.1 APTT 64.3 H D 29.8 D Sodium Potassium Chloride Carbon Dioxide Anion Gap BUN Creatinine Estim Creat Clear Calc eGFR BUN/Creatinine Ratio Glucose Calculated Osmolality Calcium Corrected Calcium Phosphorus Magnesium Total Bilirubin AST ALT Alkaline Phosphatase Total Protein Albumin Globulin Albumin/Globulin Ratio Coccidioides IgG Ab Hepatitis A IgM Ab Hep Bs Antigen Hep B Core IgM Ab Hepatitis C Antibody Quality Measures Quality Measures VTE therapy Assessment & Plan Assessment Current Active Medications: Generic Name Dose Route Start Last Admin Trade Name Shirley PRN Reason Stop Dose Admin Acetaminophen 650 mg 11/06/24 06:46 Acetaminophen 325 Mg Tablet PO 12/05/24 13:01 Q6H PRN Fever >100.3 Hydrocodone Bitart/Acetaminophen 1 tab 11/05/24 13:10 Hydrocodone/Apap 5/325 Tablet PO 11/10/24 13:09 Q4HR PRN PAIN SCALE 4-6 (Moderate Heparin Sodium/Dextrose 25,000 unit in 250 mls @ 17.799 mls/hr 11/07/24 23:21 Heparin In D5w Ivpb IV 11/21/24 23:20 .Q14H3M COLTON Protocol 18 UNITS/KG/HR Ondansetron HCl 4 mg 11/05/24 13:10 Ondansetron Inj 2 Mg/Ml Inj 2 Ml IV 12/05/24 13:09 Q6H PRN NAUSEA OR VOMITING Protocol Pantoprazole Sodium 40 mg 11/05/24 13:15 11/07/24 08:09 Pantoprazole Inj 40 Mg Vial IVP 12/05/24 13:14 40 mg QDAY COLTON Administration Sennosides 1 tab 11/05/24 13:10 Senna Tablet PO 12/05/24 13:09 QDAY PRN constipation Protocol Plan Zarina Pillai 43-y/o M no significant PMHx who presented on 11/05 for substernal chest pain x 1 week. Associated shortness of breath, intolerance to the smoke, as well as right calf mildly larger compared to left but no pain in lower extremities. 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 Denies that pain radiates, dizziness, diaphoresis, orthopnea, or PND. Unintentional 15 pound weight loss over past several weeks. Admitted for management of DVT/bilateral PE. #Pulmonary emboli, bilateral #Deep vein thrombosis, bilateral #Erythrocytosis Presented with SOB and substernal chest pain for last few weeks with associated R > L calf. Noted to have shortness of breath over the course of a few weeks and states that for about 10 months was living with his mother and not moving around much. Also endorses 15 lb unintentional weight loss, but does state that he has had decreased appetite during meals as he would sometimes get short of breath. CTA chest: multiple, large B/L PE. BLE Doppler: extensive bilateral LE DVT's (R > L). Hemoglobin 17.1 likely secondary to chronic thrombi. PESI score: 53, very low risk of 30-day mortality. ? Initially on heparin drip, was transitioned to p.o. Eliquis and received 1 dose this morning (11/07), however we will go back to heparin drip in anticipation for thrombectomy with in-house cardiology => at 1 point there was concern for CTEPH, and plan was to transfer, however will hold off at this time. Family and transfer nurse were both made aware ? Cardiology consulted, appreciate recommendations ? Echo: Significant for dilated RV with paradoxical septal motion; severe pulmonary hypertension with PA systolic pressure of 95 mmHg. Right atrium dilated. ? VQ scan: Clot appearance on CT and ultrasound represents acute event, although chronic thromboembolic pulmonary hypertension cannot be excluded by VQ scan ? Erythrocytosis workup including JAK2, EPO, CA 19?9, APL, AT 3, cardiolipin, factor V [place], homocystine, lupus anticoagulant, protein C and protein S pending #Elevated troponin/demand ischemia type ll, likely secondary to PE Troponin 0.077 -> 0.066 -> 0.085 -> 0.104 -> 0.065 Per cardiology, likely demand ischemia vs ACS Hospital management: Disposition: Heparin drip, plan for thrombectomy on Thursday Fluids: none Diet: cardiac Lines: PIV DVT prophylaxis: heparin drip GI prophylaxis: pantoprazole CODE STATUS: full code Patient seen and care discussed with my attending Dr. Gallardo. Laquita Goldsmith MD PGY-3 Attending Provider Attestation/Addendum I have discussed and was present for the essential components of the history, physical examination, diagnosis, and treatment plan with the resident. I agree with the patient's care as documented by the resident and amended herein by me. Sidney Gallardo DO. Although this document has been carefully reviewed, there may still be some phonetic and other typographical errors. These errors are purely grammatical due to imperfections in the software program and should not be construed in any way to compromise the substance of the patient's medical care during this visit.
[2024-11-07 21:31] LABS: Partial Thromboplastin Time 25.7 Seconds (22.0-36.0); Prothrombin Time 11.4 Seconds (9.0-12.2)
[2024-11-07] MEDS: Heparin/D5w 25K 250 ML Ivpb 25,000 UNIT/250 ML BAG 17.799 UNIT IV (23:25)
[2024-11-08] VITALS (9 sets, daily range): BP systolic 99–125; BP diastolic 69–86; PULSE 70–96; RESP 12–94; TEMP 35.9–36.4; O2SAT 92–96; BMI 28.2
[2024-11-08 06:02] LABS: Basophils % (Auto) 0 % (0-2.5); Eosinophils # (Auto) 0.3 Thou/mm3 (0.0-0.5); Eosinophils % (Auto) 3 % (0-10); Hematocrit 45.2 % (41.0-53.0); Hemoglobin 14.8 g/dL (13.5-16.0); Immature Granulocytes % (Auto) 0 % (0-0); Immature Granulocytes Auto 0.02 Thou/mm3 (0.00-0.00); Lymphocytes # (Auto) 3.1 Thou/mm3 (1.0-4.8); Lymphocytes % (Auto) 34 % (10-50); Mean Corpuscular HGB Conc 32.7 g/dl (31.0-37.0); Mean Corpuscular Hemoglobin 26.4 pg (25.0-35.0); Mean Corpuscular Volume 81 fL (80-100); Monocytes # (Auto) 0.6 Thou/mm3 (0.0-0.8); Monocytes % (Auto) 6 % (0-12); Neutrophils # (Auto) 5.2 Thou/mm3 (1.8-7.7); Neutrophils % (Auto) 56 % (37-80); Nucleated Red Blood Cell % 0 /100 WBC (0); Platelet Count 248 Thou/mm3 (140-440); RDW Standard Deviation 40.6 fL (35.1-43.9); White Blood Count 9.2 Thou/mm3 (3.8-10.6)
[2024-11-08 06:34] LABS: Alanine Aminotransferase 50 U/L (10-49); Albumin, Serum 3.9 gm/dL (3.5-5.0); Albumin/Globulin Ratio 1.4 (1.2-2.2); Alkaline Phosphatase 80 U/L (46-116); Anion Gap 6 (7-16); Aspartate Amino Transferase 35 U/L (0-34); BUN/Creatinine Ratio 16 Ratio (12-20); Bilirubin,Total 0.6 mg/dL (0.3-1.2); Blood Urea Nitrogen 19 mg/dL (9-23); Calcium 8.9 mg/dL (8.3-10.6); Carbon Dioxide 25.8 mMol/L (20.0-31.0); Chloride 110 mMol/L (98-107); Creatinine (Component) 1.2 mg/dL (0.6-1.3); Estimated Creatinine Clearance 100.2 mL/min (>60); Globulin 2.7 gm/dL (2.3-3.5); Glucose 117 mg/dL (74-106); Osmolality,Calculated 286 (275-295); Phosphorous 3.6 mg/dL (2.4-5.1); Potassium 4.4 mMol/L (3.4-5.1); Sodium 142 mMol/L (136-145); Total Protein 6.6 gm/dL (5.7-8.2); eGFR > 60 See Note
[2024-11-08 06:42] LABS: Partial Thromboplastin Time 58.4 Seconds (22.0-36.0)
--- NOTE | 2024-11-08 06:45 | PC.NURSE ---
patients ptt still pending at this time.
[2024-11-08] MEDS: PANTOPRAZOLE INJ 40 MG VIAL IVP (08:36)
--- NOTE | 2024-11-08 11:39 | ESPR_ITS ---
Documentation for date of: 11/08/24 Subjective Subjective Interval history: Patient seen and examined at bedside, currently on nasal cannula supplemental oxygen. Patient has no current complaints. Patient will be scheduled for right heart cath in a.m., followed by pulmonary angiogram and mechanical thrombectomy as needed. Keep patient n.p.o. after midnight, risks and benefits explained to patient. Patient is on a heparin drip, continue. Exam Vital Signs Temp Pulse Resp BP Pulse Ox O2 Del Method O2 Flow Rate 97.1 F 88 15 100/69 94 L Room Air 2 11/08/24 08:00 11/08/24 09:27 11/08/24 09:27 11/08/24 08:00 11/08/24 09:27 11/08/24 08:00 11/08/24 09:27 Narrative Exam Physical Exam General: Awake and in no acute distress. Conversational and non-toxic appearing. HEENT: Normocephalic, atraumatic, mucous membranes moist. Heart: Regular rate and rhythm, positive systolic murmur. Lungs: Clear to auscultation with no wheezing or crackles. Abdomen: Soft, nondistended, nontender, positive bowel sounds. ?No guarding or rebound tenderness. Neurologic: Alert and oriented x3, no gross neurological deficit, and patient able to move all 4 extremities. Extremities: No edema. Skin: No rash or ecchymoses. Objective Labs 11/08/24 05:42 11/08/24 05:42 Labs: Laboratory Results - last 24 hr 11/05/24 11/07/24 11/07/24 13:27 15:12 20:22 WBC RBC Hgb Hct MCV MCH MCHC RDW Std Deviation Plt Count Neut % (Auto) Lymph % (Auto) [place] % (Auto) Eos % (Auto) Baso % (Auto) Neut # (Auto) Lymph # (Auto) [place] # (Auto) Eos # (Auto) Baso # (Auto) Immature Gran # (Auto) Absolute Nucleated RBC Immature Gran % Nucleated RBC % PT 11.9 11.4 INR 1.1 1.0 APTT 29.8 D 25.7 Sodium Potassium Chloride Carbon Dioxide Anion Gap BUN Creatinine Estim Creat Clear Calc eGFR BUN/Creatinine Ratio Glucose Calculated Osmolality Calcium Corrected Calcium Phosphorus Magnesium Total Bilirubin AST ALT Alkaline Phosphatase Total Protein Albumin Globulin Albumin/Globulin Ratio Coccidioides IgG Ab Negative 11/08/24 05:42 WBC 9.2 RBC 5.60 Hgb 14.8 Hct 45.2 MCV 81 MCH 26.4 MCHC 32.7 RDW Std Deviation 40.6 Plt Count 248 D Neut % (Auto) 56 Lymph % (Auto) 34 [place] % (Auto) 6 Eos % (Auto) 3 Baso % (Auto) 0 Neut # (Auto) 5.2 Lymph # (Auto) 3.1 [place] # (Auto) 0.6 Eos # (Auto) 0.3 Baso # (Auto) 0.0 Immature Gran # (Auto) 0.02 H Absolute Nucleated RBC 0.00 Immature Gran % 0 Nucleated RBC % 0 PT INR APTT 58.4 H D Sodium 142 Potassium 4.4 Chloride 110 H Carbon Dioxide 25.8 Anion Gap 6 L BUN 19 Creatinine 1.2 Estim Creat Clear Calc 100.2 eGFR > 60 BUN/Creatinine Ratio 16 Glucose 117 H Calculated Osmolality 286 Calcium 8.9 Corrected Calcium 9.0 Phosphorus 3.6 Magnesium 2.0 Total Bilirubin 0.6 AST 35 H ALT 50 H Alkaline Phosphatase 80 Total Protein 6.6 Albumin 3.9 Globulin 2.7 Albumin/Globulin Ratio 1.4 Coccidioides IgG Ab Quality Measures Quality Measures VTE therapy Assessment & Plan Assessment Current Active Medications: Generic Name Dose Route Start Last Admin Trade Name Freq PRN Reason Stop Dose Admin Acetaminophen 650 mg 11/06/24 06:46 Acetaminophen 325 Mg Tablet PO 12/05/24 13:01 Q6H PRN Fever >100.3 Hydrocodone Bitart/Acetaminophen 1 tab 11/05/24 13:10 Hydrocodone/Apap 5/325 Tablet PO 11/10/24 13:09 Q4HR PRN PAIN SCALE 4-6 (Moderate Heparin Sodium/Dextrose 25,000 unit in 250 mls @ 17.799 mls/hr 11/07/24 23:21 11/08/24 07:18 Heparin In D5w Ivpb IV 11/21/24 23:20 18 units/kg/hr .Q14H3M COLTON 17.799 mls/hr Titration Protocol 18 UNITS/KG/HR Ondansetron HCl 4 mg 11/05/24 13:10 Ondansetron Inj 2 Mg/Ml Inj 2 Ml IV 12/05/24 13:09 Q6H PRN NAUSEA OR VOMITING Protocol Pantoprazole Sodium 40 mg 11/05/24 13:15 11/08/24 08:36 Pantoprazole Inj 40 Mg Vial IVP 12/05/24 13:14 40 mg QDAY COLTON Administration Sennosides 1 tab 11/05/24 13:10 Senna Tablet PO 12/05/24 13:09 QDAY PRN constipation Protocol Plan Assessment and plan: Summary: Mr. Pillai is a 43-year-old male with history of right foot fracture 3 years ago and rib fracture 1 year ago who presented to [facility] emergency department on 11/05/2024 with a chief complaint of substernal chest pain. Patient found to have multiple large bilateral pulmonary artery emboli on CTA, admitted to hospital for further management. # Bilateral pulmonary artery emboli # Intermediate?low risk PE # Right heart strain # Severe pulmonary hypertension, concern of CTEPH Patient hemodynamically stable had mild tachycardia, respiratory rate less than 30 throughout hospitalization, no history of heart failure or lung disease. 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 Patient also endorsed history of frequent air travel to [place] about every 3 months on 2 hour-long flight frequently. He also complained of 15 pound weight loss unintentionally recently as well. On presentation CTA showed multiple large bilateral pulmonary artery emboli EKG in emergency department showed sinus rhythm, heart rate 98 T wave inversion in V1?V3, inverted T wave in leads II, III, aVF and incomplete right bundle branch block. Echocardiogram on 11/07/2024 showed Normal left ventricular size and function, approximate ejection fraction is 55%. Right ventricle is dilated with paradoxical septal motion Severe Pulmonary hypertension PA systolic Pressure of 95 mmHg. Right atrium is dilated. Trace mitral and mild tricuspid regurgitation TR velocity 4.5 m/sec IVC dilated. Patient's VQ scan also showed multiple mismatch perfusion defects consistent with known pulmonary emboli. PESI score 73 points, class II, low risk 1.7-3.5% 30-day mortality in this group, right heart strain, dilated right ventricle with paradoxical septal motion and severe pulmonary hypertension, right atrium dilation noted on TTE, patient has intermediate-low risk PE. Team discussion with associate doctor and cardiology was held, decision was made to perform right heart cath on patient to measure right heart pressures accurately and perform pulmonary angiogram to evaluate clots and to perform mechanical thrombectomy if needed. Case was discussed with patient and patient's family and was explained in detail. Considering that patient did receive Eliquis p.o. yesterday, procedure will be performed 48 hours later. Recommendations: -Scheduled for right heart cath on 11/09/2024 to assess right heart pressure accurately -Will perform pulmonary angiogram to evaluate clots and perform mechanical thrombectomy as needed -Continue heparin drip -Close monitoring -Follow-up factor V, Antithrombin III, prothrombin and lupus anticoagulant workup -Patient will need outpatient workup to rule out other causes of DVT/PE # NSTEMI type II demand ischemia, likely secondary to PE # Elevated troponin Patient did not endorse chest pain on presentation, substernal. Troponin 0.077 - > 0.066 -> 0.085 -> 0.104 -> 0.065; EKG showed sinus rhythm, heart rate 98 T wave inversion in V1?V3, inverted T wave in leads II, III, aVF and incomplete right bundle branch block. Patient's elevated troponin likely in setting of pulmonary embolism. # New onset diabetes mellitus Patient's hemoglobin A1c 6.6 during hospitalization, otherwise blood glucose has been in the range of 100-120, did have polycythemia on presentation, hemoglobin 17.1, denies smoking. Consider repeating A1c outpatient, outpatient workup/management for diabetes. #Polycythemia Patient's hemoglobin 17.1 on presentation, patient denies smoking, possible in setting of chronic hypoxia considering patient had longstanding chest pain. Polycythemia workup-Aryan, erythropoietin ordered by primary care team Thank you for the consult and allowing to participate in the care of the patient. Cardiology will continue to follow. Case discussed with Attending Dr. Fox. Kimmie Diamond PGY1 Disclaimer: This note was dictated by speech recognition. Minor errors in fruit trimmer may be present due to voice recognition software. Attending Provider Attestation/Addendum I have personally seen and examined the patient separately on the above date of service and discussed the plan of care with the resident. I reviewed the resident Dr. Kimmie Diamond consultation progress note and agree with the resident findings and plan in the note above and have also edited the documentation to reflect my findings and plan. A 43-year-old male patient with a past medical history of right hip fracture 3 years ago as well as rib fractures 1 year ago presented to the hospital for worsening shortness of breath as well as chest pain for the past day but has been having worsening shortness of breath over the past couple of weeks. 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 And recently patient did go to [place] and returned back and since his return patient has been having shortness of breath over the past 2 to 3 weeks which actually worsened over the day or 2 before the admission and he could not even walk few steps and hence came to the emergency department for further evaluation. Patient also did notice bilateral leg swelling worse on the right compared to the left. Denies any kind of chest pressure or palpitations or PND or dizziness or syncope or fall. Patient did complain of some 15 pound weight loss also in the last few months and is mostly unintentional. Admission patient was mildly hypoxic and tachycardic at 105 bpm blood pressure was 1 2485 mmHg, saturation was 90% on room air and patient was placed on oxygen via nasal cannula initially at 6 L/min regular 4 m/min. WBC was 10.9 hemoglobin 17 hematocrit 52 BUN was 18 and creatinine was 1.2. Troponin was elevated 0.07. BNP is also elevated to 87. LFTs appeared normal. EKG showed normal sinus rhythm and with S1Q3T3 pattern. Chest x-ray did not show any acute disease and chest CT showed multiple large bilateral pulmonary artery emboli. Venous Doppler showed bilateral extensive DVT involving occlusive deep vein thrombus of right superficial femoral right peroneal and left superficial femoral, left popliteal and left peroneal veins. Patient was admitted to the hospital and cardiology was consulted and echo was recommended which showed the following findings. Patient was treated with heparin drip and was recommended to transition to Eliquis. Assessment and plan: 1. Acute hypoxic respiratory failure mostly secondary to acute PE in the setting of DVT , cannot rule out underlying CTEPH. 2. Acute pulmonary embolism-bilateral right and left main PA and lobar arteries. 3. Acute bilateral lower extremity DVT 4. Moderate to severe pulmonary hypertension by echo RVSP. 5. Mild elevated troponins-NSTEMI type II mostly secondary to supply/demand mismatch in the setting of PE. 6. New onset diabetes mellitus- 7. Polycythemia-unclear etiology 8. Unintentional weight loss 9. Right heart strain with mildly elevated BNP Patient was admitted to the hospital and cardiology was consulted and echo was recommended which showed the following findings. Patient was treated with heparin drip and was recommended to transition to Eliquis. There was a question of acute PE versus CTEPH. Echocardiogram could not be performed until after the weekend. Echo performed on 11/07/2024 showed normal LV size and function with an estimated EF 55 to 60%. Normal LV function but RV is dilated with paradoxical septal motion. Severe PAH with a PA systolic pressure measured up to 90 mmHg. Maximal TR velocity 4.5 m/s. Right atrium is dilated. Mild to moderate TR noted. IVC is dilated. Trace MR. A VQ scan was eventually performed as per the recommendations of pulmonary as well as cardiology which showed multiple mismatched perfusion defects consistent with pulmonary embolism mostly acute process but could not rule out component of CTEPH. Patient presentation all the imaging findings along with the lab findings were discussed in detail with the PERT team including pulmonary Dr. Lopez as well as Dr. Pacheco. Decision was made to perform right heart cardiac catheterization with measurements of right heart pressures and then perform pulmonary angiogram to evaluate pulmonary embolism. Based on the findings, plan was to perform mechanical thrombectomy as it was deemed to be helpful for the patient given more acute clot based on the VQ scan also his overall presentation. He does meet criteria for intermediate risk PE with elevated BNP, troponin, right heart strain as well as dilated RV: LV at 1.1: 1, hypoxia. Patient, , rest of the family explained the risk benefits and alternatives of performing right heart cardiac catheterization, pulmonary angiogram as well as mechanical thrombectomy with penumbra device at this institution including the risks of bleeding, pulmonary hemorrhage, pulmonary vascular injury, heart attack, worsening respiratory failure requiring intubation and mechanical ventilation including and device related in detail with the patient. Patient understands all the risks and benefits for the procedure and provided consent for the procedure. at the bedside and had multiple questions which were all answered to their satisfaction. Patient received 10 mg of Eliquis yesterday afternoon at 11 AM and hence will wait for 48 hours from last dose of Eliquis and will plan for procedure on witnessed a 11/09/2024 afternoon around 12 PM. Patient to be n.p.o. after midnight on 11/08/2024. Recommend to stop the Eliquis completely and continue heparin drip until the procedure. The primary team did send hypercoagulable workup but only the gene mutations including prothrombin and factor V Leiden along with lupus anticoagulant are accurate. Rest of the hypercoagulable workup including protein C S and other coagulation factors will not be accurate due to the acute consumption of the coagulation factors and would recommend to ignore the results at the present point of time. Patient will need complete workup after 8 weeks of stopping anticoagulation which can be done later as outpatient after he completes full therapy for his PE and DVT. Management of rest of the medical conditions as per primary team and other consultants. Thank you for the consult and allowing me to participate in the care of the patient. Cardiology will continue to follow. Sebastian Fox M.D. Interventional Cardiology
--- NOTE | 2024-11-08 13:31 | ESPR_ITS ---
<Statement entered by Harry Maldonado MD - 11/08/24 16:20> Patient was seen and examined at the bedside. No acute overnight events reported. Patient reported that he has been feeling better and had questions and concerns which were addressed to the whole family. Plan is to keep the patient in inlayer, Dr. Fox we will proceed with thrombectomy tomorrow and likely do right heart cath. Will hold the heparin at midnight. Labs were unremarkable. Continue with current plan. All labs and orders were reviewed. I saw and examined the patient, and I agree with current management stated by Dr Sourav MD,PGY1. Plan of care was discussed with the attending physician and resident physician. Disclaimer: Despite multiple revisions, due to the dictation software being used, the document bellow may not be free of grammatical errors including phonetic/typographic errors. However, this does not deter from our commitment to providing health care in the patient's best interest in mind. Dr. Erica MD, PGY 2 Documentation for date of: 11/08/24 Subjective Subjective Interval history: no acute overnight events reported. Pt is seen and examined at bedside this morning. Per transfer to [facility] review of the case, the bilateral pulmonary emboli are acute therefore inhouse cardiogist Dr. Fox will take the patient for cardiac cath and embolectomy tomorrow. This is explained to the patient and he is agreeable. Pt's vitals are stable, CBC and CMP is unremarkable with the exception of mild transiminitis which could be secondary to heparin drip. Will continue to monitor liver function test. Pt denies SOB, chest pain or palpitations. He is requesting to shower and is inquiring about how soon he can travel by air to [place] after the procedure. Pt has no other complaints. Exam Vital Signs Temp Pulse Resp BP Pulse Ox O2 Del Method O2 Flow Rate 97.1 F 82 17 104/71 95 Nasal Cannula 2 11/08/24 12:00 11/08/24 12:00 11/08/24 12:00 11/08/24 12:00 11/08/24 12:00 11/08/24 12:11/08/24 12:00 Narrative Exam GENERAL: A&Ox3 . Awake, Not in acute distress NEURO: no focal neurological deficits HEENT: Atraumatic, Normocephalic. mucous membranes moist. Eyes open, symmetrical, & clear HEART: loud systolic murmur heard LUNGS: Clear to auscultation with no wheezing or crackles. ABDOMEN: soft, non-distended, non-tender, bowel sounds heard, no guarding or rebound tenderness SKIN: No Rash or ecchymoses EXTREMITIES: left calf edema noted, no tenderness, able to move all 4 extremities, pedal pulses palpated Objective Labs 11/08/24 05:42 11/08/24 05:42 Labs: Laboratory Results - last 24 hr 11/07/24 11/07/24 11/08/24 15:12 20:22 05:42 WBC 9.2 RBC 5.60 Hgb 14.8 Hct 45.2 MCV 81 MCH 26.4 MCHC 32.7 RDW Std Deviation 40.6 Plt Count 248 D Neut % (Auto) 56 Lymph % (Auto) 34 Mckinley % (Auto) 6 Eos % (Auto) 3 Baso % (Auto) 0 Neut # (Auto) 5.2 Lymph # (Auto) 3.1 Mckinley # (Auto) 0.6 Eos # (Auto) 0.3 Baso # (Auto) 0.0 Immature Gran # (Auto) 0.02 H Absolute Nucleated RBC 0.00 Immature Gran % 0 Nucleated RBC % 0 PT 11.9 11.4 INR 1.1 1.0 APTT 29.8 D 25.7 58.4 H D Sodium 142 Potassium 4.4 Chloride 110 H Carbon Dioxide 25.8 Anion Gap 6 L BUN 19 Creatinine 1.2 Estim Creat Clear Calc 100.2 eGFR > 60 BUN/Creatinine Ratio 16 Glucose 117 H Calculated Osmolality 286 Calcium 8.9 Corrected Calcium 9.0 Phosphorus 3.6 Magnesium 2.0 Total Bilirubin 0.6 AST 35 H ALT 50 H Alkaline Phosphatase 80 Total Protein 6.6 Albumin 3.9 Globulin 2.7 Albumin/Globulin Ratio 1.4 Quality Measures Quality Measures VTE therapy Assessment & Plan Assessment Current Active Medications: Generic Name Dose Route Start Last Admin Trade Name Freq PRN Reason Stop Dose Admin Acetaminophen 650 mg 11/06/24 06:46 Acetaminophen 325 Mg Tablet PO 12/05/24 13:01 Q6H PRN Fever >100.3 Hydrocodone Bitart/Acetaminophen 1 tab 11/05/24 13:10 Hydrocodone/Apap 5/325 Tablet PO 11/10/24 13:09 Q4HR PRN PAIN SCALE 4-6 (Moderate Heparin Sodium/Dextrose 25,000 unit in 250 mls @ 17.799 mls/hr 11/07/24 23:21 11/08/24 07:18 Heparin In D5w Ivpb IV 11/21/24 23:20 18 units/kg/hr .Q14H3M COLTON 17.799 mls/hr Titration Protocol 18 UNITS/KG/HR Ondansetron HCl 4 mg 11/05/24 13:10 Ondansetron Inj 2 Mg/Ml Inj 2 Ml IV 12/05/24 13:09 Q6H PRN NAUSEA OR VOMITING Protocol Pantoprazole Sodium 40 mg 11/05/24 13:15 11/08/24 08:36 Pantoprazole Inj 40 Mg Vial IVP 12/05/24 13:14 40 mg QDAY COLTON Administration Sennosides 1 tab 11/05/24 13:10 Senna Tablet PO 12/05/24 13:09 QDAY PRN constipation Protocol Plan Mr. Plilai is a 43-year-old male with no significant past medical history presented to the ED complaining of substernal chest pain that has not improved for the past 1 week. Pt is admitted for management of bilateral PE and DVT's. #Bilateral Pulmonary embolism likely secondary to DVT's #bilateral extensive LE DVT's #Erythrocytosis- resolved -Pt complained of chest pain and shortness of breath. Pt also noted right calf enlargement. -CTA of chest is evident of Large bilateral filling defects in the main pulmonary arteries right and left upper lobe pulmonary artery branches. 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 Right atrium dilated. -VQ scan: Clot appearance on CT and ultrasound represents acute event, although chronic thromboembolic pulmonary hypertension cannot be excluded by VQ scan -Erythrocytosis workup including JAK2, EPO, CA 19?9, APL, AT 3, cardiolipin, factor V Leyden, homocystine, lupus anticoagulant, protein C and protein S pending -Plans for cardiac cath adn thrombectomy tomorrow 11/09 # Elevated troponin, type ll, likely secondary to demand ischemia - resolved -Troponin 0.077 -> 0.066 , BNP 280 Health Maintenance Disposition: telemetry for heparin drip for large bilateral PE and extensive DVT's DVT Prophylaxis: Pt is heparin drip GI Prophylaxis: Pantoprozol-40 IV Qday Diet: regular diet Lines: Peripheral lines Code status: Full Assessment and plan discussed with my senior resident Dr. Maldonado & attending physician Dr. Paulina Benjamin (PGY-1)- Internal medicine resident Attending Provider Attestation/Addendum I have discussed and was present for the essential components of the history, physical examination, diagnosis, and treatment plan with the resident. I agree with the patient's care as documented by the resident and amended herein by me. Sidney Gallardo, . Patient seen and evaluated this AM. No acute events overnight, vital signs stable, patient afebrile, patient on room air, SpO2 95%, labs largely unremarkable, echo significant for a dilated right heart with RVSP of 95% however may be overestimated per cardiology. VQ scan performed yesterday suggestive of a more acute process however CTEPH cannot be excluded. Patient scheduled for thrombectomy tomorrow with Dr. Linda Perez, will continue to monitor closely, heparin drip to be turned off at midnight unless directed by cardiology otherwise. Although this document has been carefully reviewed, there may still be some phonetic and other typographical errors. These errors are purely grammatical due to imperfections in the software program and should not be construed in any way to compromise the substance of the patient's medical care during this visit.
[2024-11-08 14:25] LABS: Partial Thromboplastin Time 69.5 Seconds (22.0-36.0)
[2024-11-08] MEDS: Heparin/D5w 25K 250 ML Ivpb 25,000 UNIT/250 ML BAG 17.799 UNIT IV (15:55)
[2024-11-08 21:07] LABS: Partial Thromboplastin Time 89.1 Seconds (22.0-36.0)
[2024-11-09] VITALS (16 sets, daily range): BP systolic 91–130; BP diastolic 66–91; PULSE 52–94; RESP 12–20; TEMP 36.2–36.8; O2SAT 92–99; BMI 28.0
--- NOTE | 2024-11-09 00:18 | PC.NURSE ---
Heparin drip held/stopped as instructed by Dr. Sorensen. current PTT 89.1.
[2024-11-09 05:15] LABS: Basophils % (Auto) 0 % (0-2.5); Eosinophils # (Auto) 0.3 Thou/mm3 (0.0-0.5); Eosinophils % (Auto) 3 % (0-10); Hematocrit 45.1 % (41.0-53.0); Hemoglobin 14.6 g/dL (13.5-16.0); Immature Granulocytes % (Auto) 0 % (0-0); Immature Granulocytes Auto 0.02 Thou/mm3 (0.00-0.00); Lymphocytes # (Auto) 3.1 Thou/mm3 (1.0-4.8); Lymphocytes % (Auto) 33 % (10-50); Mean Corpuscular HGB Conc 32.4 g/dl (31.0-37.0); Mean Corpuscular Hemoglobin 26.1 pg (25.0-35.0); Mean Corpuscular Volume 81 fL (80-100); Monocytes # (Auto) 0.5 Thou/mm3 (0.0-0.8); Monocytes % (Auto) 6 % (0-12); Neutrophils # (Auto) 5.3 Thou/mm3 (1.8-7.7); Neutrophils % (Auto) 58 % (37-80); Nucleated Red Blood Cell % 0 /100 WBC (0); Platelet Count 249 Thou/mm3 (140-440); RDW Standard Deviation 40.3 fL (35.1-43.9); White Blood Count 9.2 Thou/mm3 (3.8-10.6)
[2024-11-09 05:34] LABS: Partial Thromboplastin Time 32.9 Seconds (22.0-36.0)
[2024-11-09 05:49] LABS: Alanine Aminotransferase 91 U/L (10-49); Albumin, Serum 3.9 gm/dL (3.5-5.0); Albumin/Globulin Ratio 1.4 (1.2-2.2); Alkaline Phosphatase 80 U/L (46-116); Anion Gap 8 (7-16); Aspartate Amino Transferase 63 U/L (0-34); BUN/Creatinine Ratio 16 Ratio (12-20); Bilirubin,Total 0.6 mg/dL (0.3-1.2); Blood Urea Nitrogen 19 mg/dL (9-23); Calcium 9.1 mg/dL (8.3-10.6); Calcium (Corrected) 9.2 mg/dL (8.5-10.1); Carbon Dioxide 27.4 mMol/L (20.0-31.0); Chloride 107 mMol/L (98-107); Creatinine (Component) 1.2 mg/dL (0.6-1.3); Estimated Creatinine Clearance 100.2 mL/min (>60); Globulin 2.7 gm/dL (2.3-3.5); Glucose 110 mg/dL (74-106); Magnesium 1.9 mg/dL (1.6-2.6); Osmolality,Calculated 286 (275-295); Phosphorous 3.6 mg/dL (2.4-5.1); Potassium 4.4 mMol/L (3.4-5.1); Sodium 142 mMol/L (136-145); Total Protein 6.6 gm/dL (5.7-8.2); eGFR > 60 See Note
--- NOTE | 2024-11-09 07:20 | PC.NURSE ---
Heparin drip on hold since midnight following orders from Dr. Sorensen. was aware about the report from day shift nurse to stop heparin drip at [address] Sorensen stated that they had the order to stop it at mid night. Dr. Benjamin was made aware about current ptt level of 32.9. Waiting on Dr. Benjamin to restart heparin drip.
[2024-11-09] MEDS: HEPARIN SOD INJ 5000 UNIT/ML VIAL 7900 UNIT IVP (08:00)
[2024-11-09] MEDS: Heparin/D5w 25K 250 ML Ivpb 25,000 UNIT/250 ML BAG 14.832 UNIT IV (08:00)
[2024-11-09] MEDS: Magnesium Sulfate 1 gm Ivpb 1 GM/100 ML BAG IV (08:15)
[2024-11-09] MEDS: PANTOPRAZOLE INJ 40 MG VIAL IVP (08:16)
--- NOTE | 2024-11-09 08:20 | PD.RESPRO ---
Documentation for date of: 11/09/24 Subjective Subjective Interval history: Patient seen and examined at bedside. Patient saturating 94% on 1 L nasal cannula. Patient currently has no complaints, is scheduled for right heart cath followed by pulmonary angiogram and mechanical thrombectomy. Patient is currently n.p.o., we will continue heparin drip until the procedure. Otherwise patient has no current complaints. Exam Vital Signs Temp Pulse Resp BP Pulse Ox O2 Del Method O2 Flow Rate 97.8 F 79 18 105/76 93 L Nasal Cannula 1 11/09/24 07:52 11/09/24 07:52 11/09/24 07:52 11/09/24 07:52 11/09/24 07:52 11/09/24 07:52 11/09/24 07:52 Narrative Exam Physical Exam General: Awake and in no acute distress. Conversational and non-toxic appearing. HEENT: Normocephalic, atraumatic, mucous membranes moist. Heart: Regular rate and rhythm, positive systolic murmur. Lungs: Clear to auscultation with no wheezing or crackles. Abdomen: Soft, nondistended, nontender, positive bowel sounds. ?No guarding or rebound tenderness. Neurologic: Alert and oriented x3, no gross neurological deficit, and patient able to move all 4 extremities. Extremities: Trace bilateral lower extremity edema. Skin: No rash or ecchymoses. Objective Labs 11/10/24 04:58 11/10/24 04:58 Labs: Laboratory Results - last 24 hr 11/08/24 11/08/24 11/09/24 13:34 20:25 04:36 WBC 9.2 RBC 5.60 Hgb 14.6 Hct 45.1 MCV 81 MCH 26.1 MCHC 32.4 RDW Std Deviation 40.3 Plt Count 249 Neut % (Auto) 58 Lymph % (Auto) 33 Humphreys % (Auto) 6 Eos % (Auto) 3 Baso % (Auto) 0 Neut # (Auto) 5.3 Lymph # (Auto) 3.1 Humphreys # (Auto) 0.5 Eos # (Auto) 0.3 Baso # (Auto) 0.0 Immature Gran # (Auto) 0.02 H Absolute Nucleated RBC 0.00 Immature Gran % 0 Nucleated RBC % 0 APTT 69.5 H D 89.1 H D 32.9 D Sodium 142 Potassium 4.4 Chloride 107 Carbon Dioxide 27.4 Anion Gap 8 BUN 19 Creatinine 1.2 Estim Creat Clear Calc 100.2 eGFR > 60 BUN/Creatinine Ratio 16 Glucose 110 H Calculated Osmolality 286 Calcium 9.1 Corrected Calcium 9.2 Phosphorus 3.6 Magnesium 1.9 Total Bilirubin 0.6 AST 63 H ALT 91 H Alkaline Phosphatase 80 Total Protein 6.6 Albumin 3.9 Globulin 2.7 Albumin/Globulin Ratio 1.4 Quality Measures Quality Measures VTE therapy Assessment & Plan Assessment Current Active Medications: Generic Name Dose Route Start Last Admin Trade Name Freq PRN Reason Stop Dose Admin Acetaminophen 650 mg 11/06/24 06:46 Acetaminophen 325 Mg Tablet PO 12/05/24 13:01 Q6H PRN Fever >100.3 Hydrocodone Bitart/Acetaminophen 1 tab 11/05/24 13:10 Hydrocodone/Apap 5/325 Tablet PO 11/10/24 13:09 Q4HR PRN PAIN SCALE 4-6 (Moderate Heparin Sodium/Dextrose 25,000 unit in 250 mls @ 17.799 mls/hr 11/07/24 23:21 11/09/24 08:00 Heparin In D5w Ivpb IV 11/21/24 23:20 15 units/kg/hr .Q14H3M COLTON 14.832 mls/hr Administration Protocol 18 UNITS/KG/HR Magnesium Sulfate/Dextrose 1 gm in 100 mls @ 100 mls/hr 11/09/24 07:43 11/09/24 08:15 Magnesium Sulfate Ivpb IV 11/09/24 08:42 100 mls/hr X1 ONE Administration Ondansetron HCl 4 mg 11/05/24 13:10 Ondansetron Inj 2 Mg/Ml Inj 2 Ml IV 12/05/24 13:09 Q6H PRN NAUSEA OR VOMITING Protocol Pantoprazole Sodium 40 mg 11/05/24 13:15 11/09/24 08:16 Pantoprazole Inj 40 Mg Vial IVP 12/05/24 13:14 40 mg QDAY COLTON Administration Sennosides 1 tab 11/05/24 13:10 Senna Tablet PO 12/05/24 13:09 QDAY PRN constipation Protocol Plan Assessment and plan: Summary: Mr. Pillai is a 43-year-old male with history of right foot fracture 3 years ago and rib fracture 1 year ago who presented to [facility] emergency department on 11/05/2024 with a chief complaint of substernal chest pain. Patient found to have multiple large bilateral pulmonary artery emboli on CTA, admitted to hospital for further management. # Acute hypoxic respiratory failure secondary to bilateral pulmonary artery emboli #Acute pulmonary embolism?bilateral right and left main PA and lobar arteries # Intermediate?low risk PE # Right heart strain, moderate to severe pulmonary hypertension by echo RVSP # Severe pulmonary hypertension, concern of CTEPH # Acute bilateral lower extremity DVT Patient hemodynamically stable had mild tachycardia, respiratory rate less than 30 throughout hospitalization, no history of heart failure or lung disease. 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 Patient also endorsed history of frequent air travel to [place] about every 3 months on 2 hour-long flight frequently. He also complained of 15 pound weight loss unintentionally recently as well. On presentation CTA showed multiple large bilateral pulmonary artery emboli EKG in emergency department showed sinus rhythm, heart rate 98 T wave inversion in V1?V3, inverted T wave in leads II, III, aVF and incomplete right bundle branch block. Echocardiogram on 11/07/2024 showed Normal left ventricular size and function, approximate ejection fraction is 55%. Right ventricle is dilated with paradoxical septal motion Severe Pulmonary hypertension PA systolic Pressure of 95 mmHg. Right atrium is dilated. Trace mitral and mild tricuspid regurgitation TR velocity 4.5 m/sec IVC dilated. Patient's VQ scan also showed multiple mismatch perfusion defects consistent with known pulmonary emboli. PESI score 73 points, class II, low risk 1.7-3.5% 30-day mortality in this group, right heart strain, dilated right ventricle with paradoxical septal motion and severe pulmonary hypertension, right atrium dilation noted on TTE, patient has intermediate-low risk PE. Patient presentation all the imaging findings along with the lab findings were discussed in detail with the PERT team including pulmonary Dr. Lopez as well as Dr. Pacheco. Decision was made to perform right heart cardiac catheterization with measurements of right heart pressures and then perform pulmonary angiogram to evaluate pulmonary embolism. Based on the findings, plan was to perform mechanical thrombectomy as it was deemed to be helpful for the patient given more acute clot based on the VQ scan also his overall presentation. He does meet criteria for intermediate risk PE with elevated BNP, troponin, right heart strain as well as dilated RV: LV at 1.1: 1, hypoxia. Patient, , rest of the family explained the risk benefits and alternatives of performing right heart cardiac catheterization, pulmonary angiogram as well as mechanical thrombectomy with penumbra device at this institution including the risks of bleeding, pulmonary hemorrhage, pulmonary vascular injury, heart attack, worsening respiratory failure requiring intubation and mechanical ventilation including and device related in detail with the patient. Patient understands all the risks and benefits for the procedure and provided consent for the procedure. at the bedside and had multiple questions which were all answered to their satisfaction. Recommendations: -Scheduled for right heart catheterization today to assess right heart pressures accurately -Will perform pulmonary angiogram to evaluate clots and perform mechanical thrombectomy as needed -Continue heparin drip until procedure -Close monitoring -Follow-up factor V, Antithrombin III, prothrombin and lupus anticoagulant workup -Rest of the hypercoagulable workup including protein C S and other coagulation factors will not be accurate due to the acute consumption of the coagulation factors and would recommend to ignore the results at the present point of time. Patient will need complete workup after 8 weeks of stopping anticoagulation which can be done later as outpatient after he completes full therapy for his PE and DVT. # NSTEMI type II demand ischemia, likely secondary to PE # Elevated troponin Patient did not endorse chest pain on presentation, substernal. Troponin 0.077 -> 0.066 -> 0.085 -> 0.104 -> 0.065; EKG showed sinus rhythm, heart rate 98 T wave inversion in V1?V3, inverted T wave in leads II, III, aVF and incomplete right bundle branch block. Patient's elevated troponin likely in setting of pulmonary embolism. # New onset diabetes mellitus Patient's hemoglobin A1c 6.6 during hospitalization, otherwise blood glucose has been in the range of 100-120, did have polycythemia on presentation, hemoglobin 17.1, denies smoking. Consider repeating A1c outpatient, outpatient workup/management for diabetes. #Polycythemia Patient's hemoglobin 17.1 on presentation, patient denies smoking, possible in setting of chronic hypoxia considering patient had longstanding chest pain. Polycythemia workup-Aryan, erythropoietin ordered by primary care team #Unintentional weight loss Patient and unintentional weight loss about 15 pounds in the last couple of months. Patient needs screening for malignancy. Consider outpatient colonoscopy and outpatient workup post discharge. Thank you for the consult and allowing to participate in the care of the patient. Cardiology will continue to follow. Case discussed with Attending Dr. Fox. Kimmie Diamond PGY1 Disclaimer: This note was dictated by speech recognition. Minor errors in cutting room supervisor may be present due to voice recognition software. Attending Provider Attestation/Addendum I have personally seen and examined the patient separately on the above date of service and discussed the plan of care with the resident. I reviewed the resident Dr. Kimmie Diamond consultation progress note and agree with the resident findings and plan in the note above and have also edited the documentation to reflect my findings and plan. Sebastian Fox M.D. Interventional Cardiology
--- NOTE | 2024-11-09 08:52 | ESPR_ITS ---
<Statement entered by Harry Maldonado MD - 11/09/24 15:19> Patient was seen and examined at the bedside. No acute overnight events were reported. Labs. Stable. Patient went for scheduled thrombectomy per cardiology recommendations. Heparin was on hold for the procedure. Will follow-up with cardiology recommendations. All labs and orders were reviewed. I saw and examined the patient, and I agree with current management stated by Dr Sourav MD,PGY1. Plan of care was discussed with the attending physician and resident physician. Disclaimer: Despite multiple revisions, due to the dictation software being used, the document bellow may not be free of grammatical errors including phonetic/typographic errors. However, this does not deter from our commitment to providing health care in the patient's best interest in mind. Dr. Jarrett MD, PGY 2 Documentation for date of: 11/09/24 Subjective Subjective Interval history: No acute overnight events reported. Patient seen and examined at bedside this morning. Patient is scheduled for cardiac catheterization today. Patient currently does not have any complaints. Vitals are stable with blood pressure 103/78, CBC and CMP is unremarkable with the exception of mild transaminitis with AST 63 and ALT 91. Exam Vital Signs Temp Pulse Resp BP Pulse Ox O2 Del Method O2 Flow Rate 97.8 F 79 18 105/76 93 L Nasal Cannula 1 11/09/24 07:52 11/09/24 07:52 11/09/24 07:52 11/09/24 07:52 11/09/24 07:52 11/09/24 07:52 11/09/24 07:52 Narrative Exam GENERAL: A&Ox3 . Awake, Not in acute distress NEURO: no focal neurological deficits HEENT: Atraumatic, Normocephalic. mucous membranes moist. Eyes open, symmetrical, & clear HEART: loud systolic murmur heard LUNGS: Clear to auscultation with no wheezing or crackles. ABDOMEN: soft, non-distended, non-tender, bowel sounds heard, no guarding or rebound tenderness SKIN: No Rash or ecchymoses EXTREMITIES: left calf edema noted, no tenderness, able to move all 4 extremities, pedal pulses palpated Objective Labs 11/09/24 04:36 11/09/24 04:36 Labs: Laboratory Results - last 24 hr 11/08/24 11/08/24 11/09/24 13:34 20:25 04:36 WBC 9.2 RBC 5.60 Hgb 14.6 Hct 45.1 MCV 81 MCH 26.1 MCHC 32.4 RDW Std Deviation 40.3 Plt Count 249 Neut % (Auto) 58 Lymph % (Auto) 33 Yancey % (Auto) 6 Eos % (Auto) 3 Baso % (Auto) 0 Neut # (Auto) 5.3 Lymph # (Auto) 3.1 Yancey # (Auto) 0.5 Eos # (Auto) 0.3 Baso # (Auto) 0.0 Immature Gran # (Auto) 0.02 H Absolute Nucleated RBC 0.00 Immature Gran % 0 Nucleated RBC % 0 APTT 69.5 H D 89.1 H D 32.9 D Sodium 142 Potassium 4.4 Chloride 107 Carbon Dioxide 27.4 Anion Gap 8 BUN 19 Creatinine 1.2 Estim Creat Clear Calc 100.2 eGFR > 60 BUN/Creatinine Ratio 16 Glucose 110 H Calculated Osmolality 286 Calcium 9.1 Corrected Calcium 9.2 Phosphorus 3.6 Magnesium 1.9 Total Bilirubin 0.6 AST 63 H ALT 91 H Alkaline Phosphatase 80 Total Protein 6.6 Albumin 3.9 Globulin 2.7 Albumin/Globulin Ratio 1.4 Quality Measures Quality Measures VTE therapy Assessment & Plan Assessment Current Active Medications: Generic Name Dose Route Start Last Admin Trade Name Freq PRN Reason Stop Dose Admin Acetaminophen 650 mg 11/06/24 06:46 Acetaminophen 325 Mg Tablet PO 12/05/24 13:01 Q6H PRN Fever >100.3 Hydrocodone Bitart/Acetaminophen 1 tab 11/05/24 13:10 Hydrocodone/Apap 5/325 Tablet PO 11/10/24 13:09 Q4HR PRN PAIN SCALE 4-6 (Moderate Heparin Sodium/Dextrose 25,000 unit in 250 mls @ 17.799 mls/hr 11/07/24 23:21 11/09/24 08:00 Heparin In D5w Ivpb IV 11/21/24 23:20 15 units/kg/hr .Q14H3M COLTON 14.832 mls/hr Administration Protocol 18 UNITS/KG/HR Ondansetron HCl 4 mg 11/05/24 13:10 Ondansetron Inj 2 Mg/Ml Inj 2 Ml IV 12/05/24 13:09 Q6H PRN NAUSEA OR VOMITING Protocol Pantoprazole Sodium 40 mg 11/05/24 13:15 11/09/24 08:16 Pantoprazole Inj 40 Mg Vial IVP 12/05/24 13:14 40 mg QDAY COLTON Administration Sennosides 1 tab 11/05/24 13:10 Senna Tablet PO 12/05/24 13:09 QDAY PRN constipation Protocol Plan Mr. Pillai is a 43-year-old male with no significant past medical history presented to the ED complaining of substernal chest pain that has not improved for the past 1 week. Pt is admitted for management of bilateral PE and DVT's. #Bilateral Pulmonary embolism likely secondary to DVT's #bilateral extensive LE DVT's #Severe pulmonary #Erythrocytosis- resolved -Pt complained of chest pain and shortness of breath. Pt also noted right calf enlargement. -CTA of chest is evident of Large bilateral filling defects in the main pulmonary arteries right and left upper lobe pulmonary artery branches. 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 Right atrium dilated. -VQ scan: Clot appearance on CT and ultrasound represents acute event, although chronic thromboembolic pulmonary hypertension cannot be excluded by VQ scan -Erythrocytosis workup including JAK2, EPO, CA 19?9, APL, AT 3, cardiolipin, factor V Leyden, homocystine, lupus anticoagulant, protein C and protein S pending -Plans for cardiac cath and thrombectomy today #transiminitis -AST (63) and ALT (91) elevated liekly secondary to heparin drip -will continue to monitor with daily labs # Elevated troponin, type ll, likely secondary to demand ischemia - resolved -Troponin 0.077 -> 0.066 , BNP 280 Health Maintenance Disposition: telemetry for heparin drip for large bilateral PE and extensive DVT's DVT Prophylaxis: Pt is heparin drip GI Prophylaxis: Pantoprozol-40 IV Qday Diet: regular diet Lines: Peripheral lines Code status: Full Assessment and plan discussed with my senior resident Dr. Maldonado & attending physician Dr. Paulina Benjamin (PGY-1)- Internal medicine resident Attending Provider Attestation/Addendum I have discussed and was present for the essential components of the history, physical examination, diagnosis, and treatment plan with the resident. I agree with the patient's care as documented by the resident and amended herein by me. Sidney Gallardo, . Patient seen and evaluated this AM. Vital signs stable, patient afebrile overnight, presently on 1 L, SpO2 93%, subjectively the patient feels well. Labs largely unremarkable. Patient scheduled for thrombectomy today for bilateral pulmonary emboli, most likely acute however CTEPH. Patient scheduled for right heart cath and thrombectomy today with Dr. Fox. Will continue to follow closely. Although this document has been carefully reviewed, there may still be some phonetic and other typographical errors. These errors are purely grammatical due to imperfections in the software program and should not be construed in any way to compromise the substance of the patient's medical care during this visit.
--- NOTE | 2024-11-09 10:33 | ESCONSULT_ITS ---
RE: AUTUMN CHANG : 1980 DATE OF CONSULTATION: 11/08/2024 REASON FOR CONSULTATION: Evaluation of pulmonary embolism for possible thromboembolectomy, confirmatory consultation for pulmonary embolism response. CHIEF COMPLAINT: Shortness of breath. HISTORY OF PRESENT ILLNESS: The patient is a 43-year-old male with a past medical history of right foot fracture 3 years ago, the rib fracture a year ago when he fell. Apparently very active. He is doing fairly until about 2 weeks ago. The patient had shortness of breath on exertion, increasing shortness of breath. Three days prior to admission on 11/07/2024, the patient went out to do activities, suddenly experienced shortness of breath. The patient did have a trip to [place] 2 weeks prior to admission and symptoms started right after he came back from the [place] trip. Shortness of breath was severe and unable to exert even going to restroom without having severe shortness of breath. He came to the hospital on 11/05/2024, was found to have bilateral pulmonary embolism with right main pulmonary artery has extensive thrombus, near total occlusion. Left pulmonary artery, upper and lower main lobe branches appear to show extensive thrombus and thromboembolism. Also evidence of right lower extremity deep vein thrombosis was detected on ultrasound examination. Extensive bilateral lower extremity DVT was seen. Occlusive acute deep vein thrombosis of the right superficial femoral vein, right peroneal veins, also left superficial and popliteal and peroneal veins. The patient was started on IV heparin, initially thought to be chronic thromboembolism; however, cardiac echo showed evidence of fairly significant right ventricle volume and pressure overload with PA pressure estimated at 90 mm plus, which tends to overestimate at any event severe pulmonary hypertension. There was paradoxical septal motion of the interventricular septum with preserved left ventricular function. The patient is feeling a little better, but still has shortness of breath on exertion, saturating 80% to 90% room air and on 2 liter nasal cannula, saturating 95%. The patient had submassive pulmonary embolism with right ventricular pressure and volume overload, pulmonary hypertension, and right ventricular enlargement. All findings consisting of submassive pulmonary embolism with severe pulmonary hypertension, candidate for catheter-based therapy, embolectomy. Dr. Fox has evaluated the patient and I also agreed with the findings that this is an acute pulmonary thromboembolism with less than 2 weeks old clots. ALLERGIES: NONE. MEDICATIONS: Currently on IV heparin. PAST MEDICAL HISTORY: No major cardiovascular problems in the past. SOCIAL HISTORY: The patient is a nonsmoker. Does not drink alcoholic beverages. FAMILY HISTORY: Noncontributory. REVIEW OF SYSTEMS: Otherwise unremarkable. PHYSICAL EXAMINATION: GENERAL: A well-nourished, pleasant male, alert, awake, and in no acute distress. VITAL SIGNS: Blood pressure 105/70, pulse rate is 79, respirations 18, temperature normal, saturation is 93% on 1 liter nasal cannula. HEENT: Head is atraumatic and normocephalic. Eyes are normal. NECK: Supple. No JVD. CHEST: Symmetrical. LUNGS: Decreased breath sounds. No rales or rhonchi. HEART: S1 and S2 regular. No gallops. ABDOMEN: Thin and soft. EXTREMITIES: Mild edema of both feet. GENITOURINARY AND RECTAL: Not performed. ASSISTANT SIGNAL MAINTAINER: Unremarkable. DIAGNOSTIC DATA: Electrocardiogram showed evidence of sinus rhythm, nonspecific changes. There is evidence of right bundle branch block. There is also evidence of deep S1 and T inversions in inferior leads. Cardiac echo showed evidence of severe pulmonary hypertension, RV enlargement, normal left ventricular function. PA pressure 95 mm estimated systolic pressure. CT scan showed extensive bilateral pulmonary embolism, right main pulmonary artery is occluded and left upper and lower lobe pulmonary artery branches also showed extensive thrombus with RV enlargement. RV to LV ratio more than 1.0. Venous duplex scan with bilateral lower extremity venous thrombosis of both superficial veins and superficial femoral veins and extensive deep vein thrombosis. LABORATORY DATA: Showed evidence of elevated hemoglobin initially 17, now down to 14.8, hematocrit is 45. Chemistry panel showed there was slight troponin elevation on admission 0.10 to 0.06. IMPRESSION/ASSESSMENT: 1. Acute submassive pulmonary thromboembolism with right ventricular pressure and volume overload. 2. Extensive bilateral deep venous thrombosis. RECOMMENDATIONS: The patient is a candidate for pulmonary thromboembolectomy. Despite anticoagulation for no more than 3 days, the patient's RV is still enlarged with acute pressure and volume overload. He will benefit from the thromboembolectomy and will proceed with pulmonary thromboembolectomy on 11/09/2024. I agree with the findings and decision to do pulmonary embolectomy by Dr. Fox. DT: 08:43:39 TT: 10:26:00 Ref: [id number] - TID: [id number]
--- NOTE | 2024-11-09 12:00 | PD.SUROPNT ---
Pre Op Diagnosis Biltaeral Pulmonary embolism Procedure 1. Successful mechanical thrombectomy (penumbra device) performed to the left main pulmonary artery,left upper, lingula and left lower lobar arteries with excellent results. 2. Pulmonary angiogram. 3. Right heart cardiac catheterization 4. IVC venogram 5. Moderate conscious sedation 6. Ultrasound-guided access of the right femoral vein Surgeon Sebastian Fox MD Surgical Staff Operation Date: 11/11/24 07:45 <No data on this case meets the specified criteria>
[2024-11-09] MEDS: Heparin/D5w 25K 250 ML Ivpb 25,000 UNIT/250 ML BAG 17.881 UNIT IV (17:11)
[2024-11-09 18:00] LABS: Partial Thromboplastin Time 47.3 Seconds (22.0-36.0)
[2024-11-09 23:53] LABS: Partial Thromboplastin Time 65.2 Seconds (22.0-36.0)
[2024-11-10] VITALS (8 sets, daily range): BP systolic 104–116; BP diastolic 65–77; PULSE 75–94; RESP 15–25; TEMP 36.3–37; O2SAT 94–97; BMI 28.0
[2024-11-10] MEDS: Heparin/D5w 25K 250 ML Ivpb 25,000 UNIT/250 ML BAG 17.881 UNIT IV ×2 (03:42→18:37)
[2024-11-10 05:39] LABS: Basophils % (Auto) 0 % (0-2.5); Eosinophils # (Auto) 0.3 Thou/mm3 (0.0-0.5); Eosinophils % (Auto) 3 % (0-10); Hematocrit 41.7 % (41.0-53.0); Hemoglobin 13.8 g/dL (13.5-16.0); Immature Granulocytes % (Auto) 0 % (0-0); Immature Granulocytes Auto 0.03 Thou/mm3 (0.00-0.00); Lymphocytes % (Auto) 26 % (10-50); Mean Corpuscular HGB Conc 33.1 g/dl (31.0-37.0); Mean Corpuscular Hemoglobin 26.2 pg (25.0-35.0); Mean Corpuscular Volume 79 fL (80-100); Monocytes # (Auto) 0.7 Thou/mm3 (0.0-0.8); Monocytes % (Auto) 6 % (0-12); Neutrophils # (Auto) 7.3 Thou/mm3 (1.8-7.7); Neutrophils % (Auto) 65 % (37-80); Nucleated Red Blood Cell % 0 /100 WBC (0); Platelet Count 257 Thou/mm3 (140-440); RDW Standard Deviation 39.7 fL (35.1-43.9); Red Blood Count 5.26 Miln/mm3 (4.50-5.90); White Blood Count 11.2 Thou/mm3 (3.8-10.6)
[2024-11-10 06:14] LABS: Partial Thromboplastin Time 75.5 Seconds (22.0-36.0)
[2024-11-10 06:17] LABS: Alanine Aminotransferase 103 U/L (10-49); Albumin, Serum 3.8 gm/dL (3.5-5.0); Albumin/Globulin Ratio 1.5 (1.2-2.2); Alkaline Phosphatase 79 U/L (46-116); Anion Gap 10 (7-16); Aspartate Amino Transferase 59 U/L (0-34); BUN/Creatinine Ratio 18 Ratio (12-20); Bilirubin,Total 0.5 mg/dL (0.3-1.2); Blood Urea Nitrogen 20 mg/dL (9-23); Calcium 8.8 mg/dL (8.3-10.6); Carbon Dioxide 22.9 mMol/L (20.0-31.0); Chloride 107 mMol/L (98-107); Creatinine (Component) 1.1 mg/dL (0.6-1.3); Estimated Creatinine Clearance 109.1 mL/min (>60); Globulin 2.6 gm/dL (2.3-3.5); Glucose 162 mg/dL (74-106); Osmolality,Calculated 286 (275-295); Phosphorous 2.8 mg/dL (2.4-5.1); Potassium 3.9 mMol/L (3.4-5.1); Sodium 140 mMol/L (136-145); Total Protein 6.4 gm/dL (5.7-8.2); eGFR > 60 See Note
[2024-11-10 06:53] LABS: Erythropoietin (EPO)* 6.3 mIU/mL (2.6-18.5)
[2024-11-10] MEDS: PANTOPRAZOLE INJ 40 MG VIAL IVP (08:16)
--- NOTE | 2024-11-10 09:33 | ECHO_ITS ---
Transthoracic Echo Report Ht (in): 74 Wt (lb): 220 Exam Location: [facility] Status: Inpatient Agricultural Specialist: JACLYN Piper^^^^ Indications: Procedure Performed: BP: 118 / 71 HR: 87 Rhythm: Sinus Technical Quality: Fair MEASUREMENTS (Male / Female) Normal Values 2D ECHO LV Diastolic Diameter PLAX 4.7 cm 4.2 - 5.9 / 3.9 - 5.3 cm LV Systolic Diameter PLAX 3.2 cm IVS Diastolic Thickness 0.8 cm 0.6 - 1.0 / 0.6 - 0.9 cm LVPW Diastolic Thickness 0.7 cm 0.6 - 1.0 / 0.6 - 0.9 cm LV Relative Wall Thickness 0.3 LVOT Diameter 2.3 cm Aortic Root Diameter 3.3 cm LA Systolic Diameter LX 3.3 cm 3.0 - 4.0 / 2.7 - 3.8 cm LV Ejection Fraction MOD BP 68.8 % >= 55 % LV Cardiac Index MOD BP 3125.9 cm?/min?m? LV Ejection Fraction MOD 4C 75.8 % LV Cardiac Index MOD 4C 3988.7 cm?/min?m? LV Ejection Fraction 4C AL 78.0 % LV Cardiac Index 4C AL 4240.8 cm?/min?m? LV Ejection Fraction MOD 2C 59.2 % LV Cardiac Index MOD 2C 2221.4 cm?/min?m? LV Ejection Fraction 2C AL 60.6 % LV Cardiac Index 2C AL 2293.9 cm?/min?m? LA Volume Index 17.6 cm?/m? 16 - 28 cm?/m? Ascending Aorta Diameter 2.9 cm DOPPLER AV Peak Velocity 126.5 cm/s AV Peak Gradient 6.4 mmHg AV Mean Gradient 4.0 mmHg AV Velocity Time Integral 28.9 cm LVOT Peak Velocity 85.0 cm/s LVOT Peak Gradient 2.9 mmHg LVOT Velocity Time Integral 17.8 cm LVOT Cardiac Index 2790.9 cm?/min?m? AV Area Cont Eq vti 2.6 cm? AV Area Cont Eq pk 2.8 cm? MV Area PHT 3.4 cm? Mitral E Point Velocity 45.9 cm/s Mitral A Point Velocity 50.1 cm/s Mitral E to A Ratio 0.9 LV E' Lateral Velocity 10.6 cm/s Mitral E to LV E' Lateral Ratio 4.3 LV E' Septal Velocity 6.8 cm/s Mitral E to LV E' Septal Ratio 6.7 TR Peak Velocity 364.0 cm/s TR Peak Gradient 53.0 mmHg PV Peak Velocity 66.0 cm/s PV Peak Gradient 1.7 mmHg RVOT Peak Velocity 40.6 cm/s FINDINGS Left Ventricle Normal left ventricular size, wall thickness, systolic function with no obvious regional wall motion abnormalities.there is grade I diastolic dysfunction of the left ventricle (impaired relaxation pattern). The left ventricular ejection fraction is normal, estimated at 60-65%. Right Ventricle The right ventricular size is mildy increased. Estimated right ventricular systolic pressure is severely elevated, 80 mmHg. Left Atrium The left atrium is normal by two-dimensional, color flow and Doppler imaging with no structural abnormalities, no thrombus formation present. Right Atrium The right atrial cavity size is mildly increased. Atrial Septum The interatrial septum appears normal with no evidence of a shunt. Aorta The aorta is normal by two-dimensional, color flow and Doppler interrogation. Mitral Valve Mild mitral annular calcification. Trace to mild mitral regurgitation. Aortic Valve The aortic valve is trileaflet and normal to two-dimensional, color flow and Doppler interrogation. Tricuspid Valve There is moderate to severe tricuspid valve regurgitation. Pulmonic Valve Trivial pulmonic valve regurgitation. Vessels Inferior vena cava not well visualized. Pericardium The pericardium is normal by two-dimensional imaging. There is no significant pericardial effusion. CONCLUSIONS Indication: PE, Evaluate RV function and RVSP Normal LV size and function with EF 60-65%. Diastolic Dysfunction stage I. Normal RV size and function. Estimated RVSP severely elevated 80 mmHg. Parodoxical spetal motion noted but better than previous echo. RV pressure and voulme overload noted. RA is mildly dilated. IVC dilated. Moderate TR with TR Vmax at 4 m/s. Trace to mild MR. Sebastian Ruddy (Electronically Signed) Final Date: 10 November 2024 19:10
[2024-11-10 11:05] LABS: Partial Thromboplastin Time 72.3 Seconds (22.0-36.0)
--- NOTE | 2024-11-10 11:41 | ESPR_ITS ---
Documentation for date of: 11/10/24 Subjective Subjective Interval history: Patient seen and examined at bedside, stable, saturating 96% on 1 L nasal cannula. His oxygen requirements are decreased and patient is feeling better. No post complications since the procedure and right femoral site looks clean without any bruising or hematoma. Sutures removed from the right groin access site. Still continues to be on heparin drip for the pulmonary embolism Patient is status post right heart cath followed by pulmonary angiogram and mechanical thrombectomy on 11/09/2024 Patient had right heart cath done yesterday followed by pulmonary angiogram, significant PE thrombus burden noted on left pulmonary artery. Multiple embolic thrombi were removed from left main PA and the lobar branches, status post mechanical thrombectomy with 16 F penumbra catheter and post thrombectomy angiogram showed significant improvement. Patient's procedure was complicated with pt in atrial flutter, patient was cardioverted back to NSR Hence procedure was stopped and angiogram of right pulmonary artery was not performed. Patient was reassessed today with echocardiogram which shows paradoxical septal motion still but better than previous echo. RV pressure and volume overload was noted, moderate TR with V-max 4 m/s, RVSP about 80 mmHg. Patient will have right-sided pulmonary angiogram tomorrow with mechanical thrombectomy, patient was restarted on heparin drip postprocedure on 11/09. Keep patient n.p.o. after midnight, we will continue heparin drip until 6 AM in the morning. Patient scheduled for thrombectomy in a.m. Will continue to follow the patient. Exam Vital Signs Temp Pulse Resp BP Pulse Ox O2 Del Method O2 Flow Rate 97.4 F 92 25 H 104/67 97 Nasal Cannula 1 11/10/24 08:00 11/10/24 08:00 11/10/24 08:00 11/10/24 08:00 11/10/24 08:00 11/10/24 08:00 11/10/24 08:00 Narrative Exam Physical Exam General: Awake and in no acute distress. Conversational and non-toxic appearing. HEENT: Normocephalic, atraumatic, mucous membranes moist. Heart: Regular rate and rhythm, positive systolic murmur. Lungs: Clear to auscultation with no wheezing or crackles. Abdomen: Soft, nondistended, nontender, positive bowel sounds. ?No guarding or rebound tenderness. Neurologic: Alert and oriented x3, no gross neurological deficit, and patient able to move all 4 extremities. Extremities: Trace bilateral lower extremity edema. Skin: No rash or ecchymoses. Objective Labs 11/10/24 04:58 11/10/24 04:58 Labs: Laboratory Results - last 24 hr 11/05/24 11/09/24 11/09/24 13:27 12:58 13:17 WBC RBC Hgb Hct MCV MCH MCHC RDW Std Deviation Plt Count Neut % (Auto) Lymph % (Auto) [place] % (Auto) Eos % (Auto) Baso % (Auto) Neut # (Auto) Lymph # (Auto) [place] # (Auto) Eos # (Auto) Baso # (Auto) Immature Gran # (Auto) Absolute Nucleated RBC Immature Gran % Nucleated RBC % APTT Activated Clotting Time 222.0 H 243.0 H Sodium Potassium Chloride Carbon Dioxide Anion Gap BUN Creatinine Estim Creat Clear Calc eGFR BUN/Creatinine Ratio Glucose Calculated Osmolality Calcium Corrected Calcium Phosphorus Magnesium Erythropoietin 6.3 Total Bilirubin AST ALT Alkaline Phosphatase Total Protein Albumin Globulin Albumin/Globulin Ratio 11/09/24 11/09/24 11/10/24 17:07 23:05 04:58 WBC 11.2 H RBC 5.26 Hgb 13.8 Hct 41.7 MCV 79 L MCH 26.2 MCHC 33.1 RDW Std Deviation 39.7 Plt Count 257 Neut % (Auto) 65 Lymph % (Auto) 26 [place] % (Auto) 6 Eos % (Auto) 3 Baso % (Auto) 0 Neut # (Auto) 7.3 Lymph # (Auto) 3.0 [place] # (Auto) 0.7 Eos # (Auto) 0.3 Baso # (Auto) 0.0 Immature Gran # (Auto) 0.03 H Absolute Nucleated RBC 0.00 Immature Gran % 0 Nucleated RBC % 0 APTT 47.3 H D 65.2 H D 75.5 H D Activated Clotting Time Sodium 140 Potassium 3.9 D Chloride 107 Carbon Dioxide 22.9 Anion Gap 10 BUN 20 Creatinine 1.1 Estim Creat Clear Calc 109.1 eGFR > 60 BUN/Creatinine Ratio 18 Glucose 162 H D Calculated Osmolality 286 Calcium 8.8 Corrected Calcium 9.0 Phosphorus 2.8 Magnesium 2.0 Erythropoietin Total Bilirubin 0.5 AST 59 H ALT 103 H Alkaline Phosphatase 79 Total Protein 6.4 Albumin 3.8 Globulin 2.6 Albumin/Globulin Ratio 1.5 Quality Measures Quality Measures VTE therapy Assessment & Plan Assessment Current Active Medications: Generic Name Dose Route Start Last Admin Trade Name Freq PRN Reason Stop Dose Admin Acetaminophen 650 mg 11/06/24 06:46 Acetaminophen 325 Mg Tablet PO 12/05/24 13:01 Q6H PRN Fever >100.3 Hydrocodone Bitart/Acetaminophen 1 tab 11/05/24 13:10 Hydrocodone/Apap 5/325 Tablet PO 11/10/24 13:09 Q4HR PRN PAIN SCALE 4-6 (Moderate Heparin Sodium/Dextrose 25,000 unit in 250 mls @ 17.881 mls/hr 11/09/24 17:00 11/10/24 06:28 Heparin In D5w Ivpb IV 11/23/24 16:59 18 units/kg/hr .[id number] COLTON 17.881 mls/hr Titration Protocol 18 UNITS/KG/HR Ondansetron HCl 4 mg 11/05/24 13:10 Ondansetron Inj 2 Mg/Ml Inj 2 Ml IV 12/05/24 13:09 Q6H PRN NAUSEA OR VOMITING Protocol Pantoprazole Sodium 40 mg 11/05/24 13:15 11/10/24 08:16 Pantoprazole Inj 40 Mg Vial IVP 12/05/24 13:14 40 mg QDAY COLTON Administration Sennosides 1 tab 11/05/24 13:10 Senna Tablet PO 12/05/24 13:09 QDAY PRN constipation Protocol Plan Assessment and plan: Summary: Mr. Pillai is a 43-year-old male with history of right foot fracture 3 years ago and rib fracture 1 year ago who presented to [facility] emergency department on 11/05/2024 with a chief complaint of substernal chest pain. Patient found to have multiple large bilateral pulmonary artery emboli on CTA, admitted to hospital for further management. # Acute hypoxic respiratory failure secondary to bilateral pulmonary artery emboli # Acute pulmonary embolism?bilateral right and left main PA and lobar arteries # Intermediate?low risk PE # Right heart strain, moderate to severe pulmonary hypertension by echo RVSP # Severe pulmonary hypertension, concern of CTEPH # Acute bilateral lower extremity DVT Patient hemodynamically stable had mild tachycardia, respiratory rate less than 30 throughout hospitalization, no history of heart failure or lung disease. 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 Patient also endorsed history of frequent air travel to [place] about every 3 months on 2 hour-long flight frequently. He also complained of 15 pound weight loss unintentionally recently as well. On presentation CTA showed multiple large bilateral pulmonary artery emboli EKG in emergency department showed sinus rhythm, heart rate 98 T wave inversion in V1?V3, inverted T wave in leads II, III, aVF and incomplete right bundle branch block. Echocardiogram on 11/07/2024 showed Normal left ventricular size and function, approximate ejection fraction is 55%. Right ventricle is dilated with paradoxical septal motion Severe Pulmonary hypertension PA systolic Pressure of 95 mmHg. Right atrium is dilated. Trace mitral and mild tricuspid regurgitation TR velocity 4.5 m/sec IVC dilated. Patient's VQ scan also showed multiple mismatch perfusion defects consistent with known pulmonary emboli. PESI score 73 points, class II, low risk 1.7-3.5% 30-day mortality in this group, right heart strain, dilated right ventricle with paradoxical septal motion and severe pulmonary hypertension, right atrium dilation noted on TTE, patient has intermediate-low risk PE. Patient presentation all the imaging findings along with the lab findings were discussed in detail with the PERT team including pulmonary Dr. Lopez as well as Dr. Pacheco. Decision was made to perform right heart cardiac catheterization with measurements of right heart pressures and then perform pulmonary angiogram to evaluate pulmonary embolism. Based on the findings, plan was to perform mechanical thrombectomy as it was deemed to be helpful for the patient given more acute clot based on the VQ scan also his overall presentation. He does meet criteria for intermediate risk PE with elevated BNP, troponin, right heart strain as well as dilated RV: LV at 1.1: 1, hypoxia. 11/09- Patient is status post right heart cath followed by pulmonary angiogram and mechanical thrombectomy on 11/09/2024 Patient had right heart cath done yesterday followed by pulmonary angiogram, significant PE thrombus burden noted on left pulmonary artery. Multiple embolic thrombi were removed from left main PA and the lobar branches, status post mechanical thrombectomy with 16 F penumbra catheter and post thrombectomy angiogram showed significant improvement. Patient's procedure was complicated with pt in atrial flutter, patient was cardioverted back to NSR Hence procedure was stopped and angiogram of right pulmonary artery was not performed. Patient was reassessed today with echocardiogram which shows paradoxical septal motion still but better than previous echo. RV pressure and volume overload was noted, moderate TR with V-max 4 m/s, RVSP about 80 mmHg. . Recommendations: -Patient will have right-sided pulmonary angiogram tomorrow with mechanical thrombectomy, patient was restarted on heparin drip postprocedure on 11/09. -Keep patient n.p.o. after midnight, we will continue heparin drip until 6 AM in the morning. -Sutures removed from right groin access site, no bleeding swelling redness or drainage noted -Scheduled for pulmonary angiogram and right pulmonary artery mechanical thrombectomy as needed -Continue heparin drip until 6 AM tomorrow -Keep n.p.o. after midnight -Close monitoring -Follow-up factor V, Antithrombin III, prothrombin and lupus anticoagulant workup -Rest of the hypercoagulable workup including protein C S and other coagulation factors will not be accurate due to the acute consumption of the coagulation factors and would recommend to ignore the results at the present point of time. Patient will need complete workup after 8 weeks of stopping anticoagulation which can be done later as outpatient after he completes full therapy for his PE and DVT. # NSTEMI type II demand ischemia, likely secondary to PE # Elevated troponin Patient did not endorse chest pain on presentation, substernal. Troponin 0.077 - > 0.066 -> 0.085 -> 0.104 -> 0.065; EKG showed sinus rhythm, heart rate 98 T wave inversion in V1?V3, inverted T wave in leads II, III, aVF and incomplete right bundle branch block. Patient's elevated troponin likely in setting of pulmonary embolism. # New onset diabetes mellitus Patient's hemoglobin A1c 6.6 during hospitalization, otherwise blood glucose has been in the range of 100-120, did have polycythemia on presentation, hemoglobin 17.1, denies smoking. Consider repeating A1c outpatient, outpatient workup/management for diabetes. #Polycythemia Patient's hemoglobin 17.1 on presentation, patient denies smoking, possible in setting of chronic hypoxia considering patient had longstanding chest pain. Polycythemia workup-Aryan, erythropoietin ordered by primary care team #Unintentional weight loss Patient and unintentional weight loss about 15 pounds in the last couple of months. Patient needs screening for malignancy. Consider outpatient colonoscopy and outpatient workup post discharge. Thank you for the consult and allowing to participate in the care of the patient. Cardiology will continue to follow. Case discussed with Attending Dr. Fox. Kimmie Diamond PGY1 Disclaimer: This note was dictated by speech recognition. Minor errors in nut sheller machine operator may be present due to voice recognition software. Attending Provider Attestation/Addendum I have personally seen and examined the patient separately on the above date of service and discussed the plan of care with the resident. I reviewed the resident Dr. Kimmie Diamond consultation progress note and agree with the resident findings and plan in the note above and have also edited the documentation to reflect my findings and plan. Sebastian Fox M.D. Interventional Cardiology
--- NOTE | 2024-11-10 14:24 | PC.SS ---
SS follow up note; Thromboembolectomy tomorrow, on Hyprin drip.
--- NOTE | 2024-11-10 16:40 | ESPR_ITS ---
<Statement entered by Harry Maldonado MD - 11/10/24 17:31> Patient was seen and examined at the bedside. No acute overnight events were reported. Patient reported that he had no chest pain or shortness of breath. Cardiology will evaluate new echocardiogram to assess for right heart strain and will decide regarding thrombectomy. Following cardiology recommendations. Blood pressure remained stable. All labs and orders were reviewed. I saw and examined the patient, and I agree with current management stated by Dr Sourav MD,PGY1. Plan of care was discussed with the attending physician and resident physician. Disclaimer: Despite multiple revisions, due to the dictation software being used, the document bellow may not be free of grammatical errors including phonetic/typographic errors. However, this does not deter from our commitment to providing health care in the patient's best interest in mind. Dr. Erica MD, PGY 2 Documentation for date of: 11/10/24 Subjective Subjective Interval history: No acute overnight events reported patient is status post left thrombectomy yesterday. During thrombectomy patient had an episode of a flutter and was shocked and remained in sinus rhythm. This morning patient denies any chest palpitations or flutters or feelings of skipped beats patient states he feels much better after the procedure and feels like he can finally take deep breath as prior to the procedure he was getting very short of breath. Vital signs are stable CBC and CMP is unremarkable with the exception of glucose 162 and mild transaminitis likely secondary to heparin drip. Will continue heparin drip, patient might undergo right thrombectomy tomorrow will wait for cardiology recommendations. Exam Vital Signs Temp Pulse Resp BP Pulse Ox O2 Del Method O2 Flow Rate 98.6 F 83 18 111/77 94 L Nasal Cannula 1 11/10/24 12:11/10/24 12:11/10/24 12:11/10/24 12:00 11/10/24 12:11/10/24 12:11/10/24 12:00 Narrative Exam GENERAL: A&Ox3 . Awake, Not in acute distress NEURO: no focal neurological deficits HEENT: Atraumatic, Normocephalic. mucous membranes moist. Eyes open, symmetrical, & clear HEART: Normal Heart Sounds LUNGS: Clear to auscultation with no wheezing or crackles. ABDOMEN: soft, non-distended, non-tender, bowel sounds heard, no guarding or rebound tenderness SKIN: No Rash or ecchymoses EXTREMITIES: No edema, tenderness, able to move all 4 extremities, pedal pulses palpated Objective Labs 11/11/24 05:07 11/10/24 04:58 Labs: Laboratory Results - last 24 hr 11/05/24 11/09/24 11/09/24 13:27 12:58 13:17 WBC RBC Hgb Hct MCV MCH MCHC RDW Std Deviation Plt Count Neut % (Auto) Lymph % (Auto) [place] % (Auto) Eos % (Auto) Baso % (Auto) Neut # (Auto) Lymph # (Auto) [place] # (Auto) Eos # (Auto) Baso # (Auto) Immature Gran # (Auto) Absolute Nucleated RBC Immature Gran % Nucleated RBC % APTT Activated Clotting Time 222.0 H 243.0 H Sodium Potassium Chloride Carbon Dioxide Anion Gap BUN Creatinine Estim Creat Clear Calc eGFR BUN/Creatinine Ratio Glucose Calculated Osmolality Calcium Corrected Calcium Phosphorus Magnesium Erythropoietin 6.3 Total Bilirubin AST ALT Alkaline Phosphatase Total Protein Albumin Globulin Albumin/Globulin Ratio 11/09/24 11/09/24 11/10/24 17:07 23:05 04:58 WBC 11.2 H RBC 5.26 Hgb 13.8 Hct 41.7 MCV 79 L MCH 26.2 MCHC 33.1 RDW Std Deviation 39.7 Plt Count 257 Neut % (Auto) 65 Lymph % (Auto) 26 [place] % (Auto) 6 Eos % (Auto) 3 Baso % (Auto) 0 Neut # (Auto) 7.3 Lymph # (Auto) 3.0 [place] # (Auto) 0.7 Eos # (Auto) 0.3 Baso # (Auto) 0.0 Immature Gran # (Auto) 0.03 H Absolute Nucleated RBC 0.00 Immature Gran % 0 Nucleated RBC % 0 APTT 47.3 H D 65.2 H D 75.5 H D Activated Clotting Time Sodium 140 Potassium 3.9 D Chloride 107 Carbon Dioxide 22.9 Anion Gap 10 BUN 20 Creatinine 1.1 Estim Creat Clear Calc 109.1 eGFR > 60 BUN/Creatinine Ratio 18 Glucose 162 H D Calculated Osmolality 286 Calcium 8.8 Corrected Calcium 9.0 Phosphorus 2.8 Magnesium 2.0 Erythropoietin Total Bilirubin 0.5 AST 59 H ALT 103 H Alkaline Phosphatase 79 Total Protein 6.4 Albumin 3.8 Globulin 2.6 Albumin/Globulin Ratio 1.5 11/10/24 11:00 WBC RBC Hgb Hct MCV MCH MCHC RDW Std Deviation Plt Count Neut % (Auto) Lymph % (Auto) [place] % (Auto) Eos % (Auto) Baso % (Auto) Neut # (Auto) Lymph # (Auto) [place] # (Auto) Eos # (Auto) Baso # (Auto) Immature Gran # (Auto) Absolute Nucleated RBC Immature Gran % Nucleated RBC % APTT 72.3 H Activated Clotting Time Sodium Potassium Chloride Carbon Dioxide Anion Gap BUN Creatinine Estim Creat Clear Calc eGFR BUN/Creatinine Ratio Glucose Calculated Osmolality Calcium Corrected Calcium Phosphorus Magnesium Erythropoietin Total Bilirubin AST ALT Alkaline Phosphatase Total Protein Albumin Globulin Albumin/Globulin Ratio Quality Measures Quality Measures VTE therapy Assessment & Plan Assessment Current Active Medications: Generic Name Dose Route Start Last Admin Trade Name Freq PRN Reason Stop Dose Admin Acetaminophen 650 mg 11/06/24 06:46 Acetaminophen 325 Mg Tablet PO 12/05/24 13:01 Q6H PRN Fever >100.3 Heparin Sodium/Dextrose 25,000 unit in 250 mls @ 17.881 mls/hr 11/09/24 17:00 11/10/24 13:17 Heparin In D5w Ivpb IV 11/23/24 16:59 18 units/kg/hr .[id number] COLTON 17.881 mls/hr Titration Protocol 18 UNITS/KG/HR Ondansetron HCl 4 mg 11/05/24 13:10 Ondansetron Inj 2 Mg/Ml Inj 2 Ml IV 12/05/24 13:09 Q6H PRN NAUSEA OR VOMITING Protocol Pantoprazole Sodium 40 mg 11/05/24 13:15 11/10/24 08:16 Pantoprazole Inj 40 Mg Vial IVP 12/05/24 13:14 40 mg QDAY COLTON Administration Sennosides 1 tab 11/05/24 13:10 Senna Tablet PO 12/05/24 13:09 QDAY PRN constipation Protocol Plan Mr. Pillai is a 43-year-old male with no significant past medical history presented to the ED complaining of substernal chest pain that has not improved for the past 1 week. Pt is admitted for management of bilateral PE and DVT's. #Bilateral Pulmonary embolism likely secondary to DVT's #bilateral extensive LE DVT's #Severe pulmonary #Erythrocytosis- resolved -Pt complained of chest pain and shortness of breath. Pt also noted right calf enlargement. -CTA of chest is evident of Large bilateral filling defects in the main pulmonary arteries right and left upper lobe pulmonary artery branches. 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 Right atrium dilated. -VQ scan: Clot appearance on CT and ultrasound represents acute event, although chronic thromboembolic pulmonary hypertension cannot be excluded by VQ scan -Erythrocytosis workup including JAK2, EPO, CA 19?9, APL, AT 3, cardiolipin, factor V [place], homocystine, lupus anticoagulant, protein C and protein S pending -Pt is s/p left thrombectomy, possible right thrombectomy tomorrow based on repeat echo findings -repeat echo -Continue heparin drip #transiminitis, mild -AST (59) and ALT (103) elevated likely secondary to heparin drip -will continue to monitor with daily labs #Hyperglycemia -blood glucose 162 -A1c 6.6 -Will continue to monitor daily BG # Elevated troponin, type ll, likely secondary to demand ischemia - resolved -Troponin 0.077 -> 0.066 , BNP 280 Health Maintenance Disposition: telemetry for heparin drip for large bilateral PE and extensive DVT's DVT Prophylaxis: Pt is heparin drip GI Prophylaxis: Pantoprozol-40 IV Qday Diet: regular diet Lines: Peripheral lines Code status: Full Assessment and plan discussed with my senior resident Dr. Maldonado & attending physician Dr. Surjit Benjamin (PGY-1)- Internal medicine resident Attending Provider Attestation/Addendum I have examined the patient, reviewed labs and imaging findings, discussed the case with the resident(s), and reviewed entered orders. I agree with the plan of care as outlined in this note, with these additional summaries/recommendations: Patient seen at bedside. No acute overnight events. Patient appears comfortable and in no acute distress. Patient's O2 saturation is 94% on 1 L nasal cannula. Patient is status post thromboembolectomy x 1 with plans for additional thromboembolectomy today or tomorrow. Patient is currently hemodynamically stable. We will continue heparin gtt. and aPTT currently at goal between 60 and 80 seconds. We will transition to NOAC when able. Pulmonary embolism appears unprovoked indicating at least 6 to 12 months of anticoagulation. Hypercoagulable panel currently pending and patient will likely need to follow-up outpatient. Of note protein C and S can be altered in the setting of acute clot and if abnormal recommend repeating studies in 2 to 4 months. Elevated troponin on admission has resolved. Most likely secondary to right heart strain from pulmonary embolism. Cardiology following, recommendations appreciated. Patient and family updated on the plan and in agreement. Repeat hematology and chemistry panel in AM. Dr. Surjit MD
[2024-11-10 19:55] LABS: Partial Thromboplastin Time 70.3 Seconds (22.0-36.0)
[2024-11-11] VITALS (16 sets, daily range): BP systolic 97–122; BP diastolic 70–88; PULSE 66–110; RESP 13–23; TEMP 36–36.8; O2SAT 92–97; BMI 29.4
[2024-11-11 06:28] LABS: Basophils % (Auto) 0 % (0-2.5); Eosinophils # (Auto) 0.3 Thou/mm3 (0.0-0.5); Eosinophils % (Auto) 4 % (0-10); Hematocrit 40.9 % (41.0-53.0); Hemoglobin 13.5 g/dL (13.5-16.0); Immature Granulocytes % (Auto) 0 % (0-0); Immature Granulocytes Auto 0.03 Thou/mm3 (0.00-0.00); Lymphocytes # (Auto) 2.9 Thou/mm3 (1.0-4.8); Lymphocytes % (Auto) 35 % (10-50); Mean Corpuscular Hemoglobin 26.5 pg (25.0-35.0); Mean Corpuscular Volume 80 fL (80-100); Monocytes # (Auto) 0.7 Thou/mm3 (0.0-0.8); Monocytes % (Auto) 8 % (0-12); Neutrophils # (Auto) 4.3 Thou/mm3 (1.8-7.7); Neutrophils % (Auto) 52 % (37-80); Nucleated Red Blood Cell % 0 /100 WBC (0); Platelet Count 242 Thou/mm3 (140-440); RDW Standard Deviation 40.8 fL (35.1-43.9); Red Blood Count 5.09 Miln/mm3 (4.50-5.90); White Blood Count 8.2 Thou/mm3 (3.8-10.6)
[2024-11-11 06:39] LABS: CA 19-9 Antigen* 3 U/mL (<34)
[2024-11-11 06:43] LABS: Hexagonal Phase Confirm NEGATIVE (NEGATIVE); PTT-LA Screen >200 seconds (< OR = 40); Protein C Antigen, Total* 89 % normal (70-140); Protein S Antigen, Total* 83 % normal (70-140); dRVVT Screen 35 seconds (< OR = 45)
[2024-11-11 06:44] LABS: Antithrombin III, Activity 82 % normal (80-135); Antithrombin III, Antigen 71 % normal (80-120)
[2024-11-11 06:52] LABS: Phosphorous 3.5 mg/dL (2.4-5.1)
[2024-11-11 06:53] LABS: INR 1.1 (0.9-1.3); Partial Thromboplastin Time 84.4 Seconds (22.0-36.0); Prothrombin Time 11.8 Seconds (9.0-12.2)
[2024-11-11] MEDS: SODIUM CHLORIDE 0.9% 1000 ML 500 ML 100 ML IV (07:35)
[2024-11-11 08:39] LABS: Alanine Aminotransferase 140 U/L (10-49); Albumin, Serum 3.6 gm/dL (3.5-5.0); Albumin/Globulin Ratio 1.4 (1.2-2.2); Alkaline Phosphatase 80 U/L (46-116); Anion Gap 11 (7-16); Aspartate Amino Transferase 62 U/L (0-34); BUN/Creatinine Ratio 18 Ratio (12-20); Bilirubin,Total 0.4 mg/dL (0.3-1.2); Blood Urea Nitrogen 20 mg/dL (9-23); Calcium 8.8 mg/dL (8.3-10.6); Calcium (Corrected) 9.1 mg/dL (8.5-10.1); Carbon Dioxide 23.7 mMol/L (20.0-31.0); Chloride 107 mMol/L (98-107); Creatinine (Component) 1.1 mg/dL (0.6-1.3); Estimated Creatinine Clearance 111.4 mL/min (>60); Globulin 2.5 gm/dL (2.3-3.5); Glucose 124 mg/dL (74-106); Osmolality,Calculated 286 (275-295); Potassium 4.4 mMol/L (3.4-5.1); Sodium 142 mMol/L (136-145); Total Protein 6.1 gm/dL (5.7-8.2); eGFR > 60 See Note
--- NOTE | 2024-11-11 11:02 | PC.SS ---
Rounding: Pending Thromboembolectomy
--- NOTE | 2024-11-11 11:08 | ESOP_ITS ---
RE: AUTUMN CHANG : 1980 DATE OF OPERATION: 11/11/2024 COOK MANAGER: Catrachito Pacheco MD HEARING SCREENER: Sebastian Fox MD PROCEDURE PERFORMED: 1. Ultrasound-guided cannulation of left femoral vein. 2. Conscious sedation one hour duration. 3. Right heart catheterization. 4. Selective pulmonary angiogram, right pulmonary artery. 5. Pulmonary thromboembolectomy of the right pulmonary artery and branches. DIAGNOSES: Acute submassive pulmonary thromboembolism and extensive thrombus, right pulmonary artery occlusion. HISTORY AND INDICATIONS: The patient is a 43-year-old male with a past medical history of no major medical issues, doing fairly well until recently, admitted to the hospital 5 days ago with an episode of severe shortness of breath and was found to have acute submassive pulmonary embolism, pulmonary hypertension, right ventricle volume and pressure overload. PA pressure of 60 mmHg systolic. Did undergo left pulmonary embolectomy and has extensive right pulmonary artery thrombus as well. Continued to have shortness of breath, hence recommended to have right pulmonary thromboembolectomy, class 1 indication because of right ventricle strain and submassive embolism. DESCRIPTION OF PROCEDURE: The patient was brought to cardiac catheterization laboratory. Conscious sedation was given 2 mg Versed and 50 mcg of fentanyl. Left femoral vein was cannulated by micropuncture technique and 7-Somali sheath was introduced. was used to perform right heart catheterization and pulmonary artery pressures were recorded at 55/20 and subsequently went on to proceed with pulmonary embolectomy. Pulmonary angiogram was performed, showed extensive thrombus of the right pulmonary artery, lower lobe segmental artery as well as left upper lobe segmental artery and middle lobe segmental artery extensive thrombus. Proceeded with thrombectomy, computer-assisted vacuum thrombectomy device Penumbra was then used as a 16- Somali system. A 17-Somali sheath was used and using Amplatz guidewire, able to advance and catheter was placed in the main pulmonary artery, 16-Somali Penumbra pulmonary thrombectomy catheter. MedRunner system was then used. Computer-assisted vacuum thrombectomy was performed of the right pulmonary artery, lower segmental branch, and clots were removed. There was also extensive thrombus in main pulmonary artery itself that was also removed. The upper lobe artery showed moderate thrombus, but mostly distal in a smaller area did not think it was a good idea to go after this one, but there was extensive thrombus that was removed and pulmonary angiogram showed evidence of widely patent pulmonary artery and the flow improved significantly with venous return as well. The sheath was removed. [id number] suture was used. Anticoagulation used as 10,000 units of heparin, ACT was 240. The patient will be started back on heparin after the procedure after hemostasis was secured. SUMMARY: Successful pulmonary thromboembolectomy with computer-assisted vacuum thrombectomy of the right pulmonary artery. COMPLICATIONS: None. DT: 10:13:48 TT: 11:06:00 Ref: [id number] - TID: [id number]
[2024-11-11 11:30] LABS: Partial Thromboplastin Time 69.7 Seconds (22.0-36.0)
[2024-11-11] MEDS: PANTOPRAZOLE INJ 40 MG VIAL IVP (11:52)
[2024-11-11] MEDS: Heparin/D5w 25K 250 ML Ivpb 25,000 UNIT/250 ML BAG 18.009 UNIT IV (11:53)
--- NOTE | 2024-11-11 14:57 | ESPR_ITS ---
<Statement entered by Harry Maldonado MD - 11/11/24 18:36> Patient was seen and examined at the bedside. Patient had no chest pain and was drowsy s/p thrombectomy performed by Dr. Pacheco today. They removed 80-90% of clot from the artery. He recommended to continue heparin drip and switch the patient to Eliquis. Will stop heparin drip 2 hours later after Eliquis will be started. Will continue monitor. All labs and orders were reviewed. I saw and examined the patient, and I agree with current management stated by Dr Sourav MD,PGY1. Plan of care was discussed with the attending physician and resident physician. Disclaimer: Despite multiple revisions, due to the dictation software being used, the document bellow may not be free of grammatical errors including phonetic/typographic errors. However, this does not deter from our commitment to providing health care in the patient's best interest in mind. Dr. Erica MD, PGY 2 Documentation for date of: 11/11/24 Subjective Subjective Interval history: No acute overnight events reported. Patient seen and examined at bedside this morning. Patient had a repeat echo which showed RVSP severely elevated 80mmhg. and per cardiology recommendation patient underwent cardiac cath for right thrombectomy. Patient is seen post thrombectomy and states he appears to be very tired states he denies any chest pain or palpitation and states he feels much better but very tired as he was not able to sleep and would like to get some rest. Vitals are reviewed and blood pressure is stable CBC and CMP is unremarkable with the exception of mild elevation of the AST and ALT.at this time patient has no complaints, per cardio recs patient will continue to be monitored today and will be ready to be discharged tomorrow. Exam Vital Signs Temp Pulse Resp BP Pulse Ox O2 Del Method O2 Flow Rate 98.0 F 91 14 102/77 96 Room Air 1 11/11/24 12:00 11/11/24 12:11/11/24 12:11/11/24 12:00 11/11/24 12:11/11/24 12:11/11/24 04:00 Narrative Exam GENERAL: A&Ox3 . Awake, Not in acute distress NEURO: no focal neurological deficits HEENT: Atraumatic, Normocephalic. mucous membranes moist. Eyes open, symmetrical, & clear HEART: Normal Heart Sounds LUNGS: Clear to auscultation with no wheezing or crackles. ABDOMEN: soft, non-distended, non-tender, bowel sounds heard, no guarding or rebound tenderness SKIN: No Rash or ecchymoses EXTREMITIES: No edema, tenderness, able to move all 4 extremities, pedal pulses palpated Objective Labs 11/12/24 04:56 11/12/24 04:56 Labs: Laboratory Results - last 24 hr 11/07/24 11/10/24 11/11/24 05:08 18:40 05:07 WBC 8.2 RBC 5.09 Hgb 13.5 Hct 40.9 L MCV 80 MCH 26.5 MCHC 33.0 RDW Std Deviation 40.8 Plt Count 242 Neut % (Auto) 52 Lymph % (Auto) 35 Foard % (Auto) 8 Eos % (Auto) 4 Baso % (Auto) 0 Neut # (Auto) 4.3 Lymph # (Auto) 2.9 Foard # (Auto) 0.7 Eos # (Auto) 0.3 Baso # (Auto) 0.0 Immature Gran # (Auto) 0.03 H Absolute Nucleated RBC 0.00 Immature Gran % 0 Nucleated RBC % 0 PT 11.8 INR 1.1 APTT 70.3 H 84.4 H D Activated Clotting Time Lupus Anticoagulant SEE NOTE LA PTT Screen >200 H LA Thrombin Time TNP LA dRVVT Screen Ratio 35 LA dRVVT Confirm Ratio TNP LA dRVVT Mix Ratio TNP dRVVT Mix Interpret TNP Hexagonal Phase Confirm NEGATIVE Protein C Antigen 89 Total Protein S Ag 83 Antithrombin III Ag 71 L Antithrombin III Activ 82 Sodium 142 Potassium 4.4 D Chloride 107 Carbon Dioxide 23.7 Anion Gap 11 BUN 20 Creatinine 1.1 Estim Creat Clear Calc 111.4 eGFR > 60 BUN/Creatinine Ratio 18 Glucose 124 H Calculated Osmolality 286 Calcium 8.8 Corrected Calcium 9.1 Phosphorus 3.5 Magnesium 2.0 Total Bilirubin 0.4 AST 62 H ALT 140 H Alkaline Phosphatase 80 Total Protein 6.1 Albumin 3.6 Globulin 2.5 Albumin/Globulin Ratio 1.4 CA 19-9 Antigen 3 11/11/24 11/11/24 08:24 10:25 WBC RBC Hgb Hct MCV MCH MCHC RDW Std Deviation Plt Count Neut % (Auto) Lymph % (Auto) Foard % (Auto) Eos % (Auto) Baso % (Auto) Neut # (Auto) Lymph # (Auto) Foard # (Auto) Eos # (Auto) Baso # (Auto) Immature Gran # (Auto) Absolute Nucleated RBC Immature Gran % Nucleated RBC % PT INR APTT 69.7 H D Activated Clotting Time 236.0 H Lupus Anticoagulant LA PTT Screen LA Thrombin Time LA dRVVT Screen Ratio LA dRVVT Confirm Ratio LA dRVVT Mix Ratio dRVVT Mix Interpret Hexagonal Phase Confirm Protein C Antigen Total Protein S Ag Antithrombin III Ag Antithrombin III Activ Sodium Potassium Chloride Carbon Dioxide Anion Gap BUN Creatinine Estim Creat Clear Calc eGFR BUN/Creatinine Ratio Glucose Calculated Osmolality Calcium Corrected Calcium Phosphorus Magnesium Total Bilirubin AST ALT Alkaline Phosphatase Total Protein Albumin Globulin Albumin/Globulin Ratio CA 19-9 Antigen Quality Measures Quality Measures VTE therapy Assessment & Plan Assessment Current Active Medications: Generic Name Dose Route Start Last Admin Trade Name Freq PRN Reason Stop Dose Admin Acetaminophen 650 mg 11/06/24 06:46 Acetaminophen 325 Mg Tablet PO 12/05/24 13:01 Q6H PRN Fever >100.3 Heparin Sodium/Dextrose 25,000 unit in 250 mls @ 18.009 mls/hr 11/11/24 11:20 11/11/24 11:53 Heparin In D5w Ivpb IV 11/12/24 11:19 17.3 units/kg/hr .[id number] COLTON 18.009 mls/hr Administration Protocol 17.3 UNITS/KG/HR Ondansetron HCl 4 mg 11/05/24 13:10 Ondansetron Inj 2 Mg/Ml Inj 2 Ml IV 12/05/24 13:09 Q6H PRN NAUSEA OR VOMITING Protocol Pantoprazole Sodium 40 mg 11/05/24 13:15 11/11/24 11:52 Pantoprazole Inj 40 Mg Vial IVP 12/05/24 13:14 40 mg QDAY COLTON Administration Sennosides 1 tab 11/05/24 13:10 Senna Tablet PO 12/05/24 13:09 QDAY PRN constipation Protocol Plan Mr. Pillai is a 43-year-old male with no significant past medical history presented to the ED complaining of substernal chest pain that has not improved for the past 1 week. Pt is admitted for management of bilateral PE and DVT's. #Bilateral Pulmonary embolism likely secondary to DVT's #bilateral extensive LE DVT's #Severe pulmonary #Erythrocytosis- resolved -Pt complained of chest pain and shortness of breath. Pt also noted right calf enlargement. -CTA of chest is evident of Large bilateral filling defects in the main pulmonary arteries right and left upper lobe pulmonary artery branches. 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 Right atrium dilated. -VQ scan: Clot appearance on CT and ultrasound represents acute event, although chronic thromboembolic pulmonary hypertension cannot be excluded by VQ scan Plan: -Erythrocytosis workup including JAK2, EPO, CA 19?9, APL, AT 3, cardiolipin, factor V [place], homocystine, lupus anticoagulant, protein C and protein S pending -Pt is s/p right and left thromboembolectomy -Cardiology following -Continue heparin drip, will transition to oral anticoagulation upon discharge tomorrow #transiminitis, mild -AST (62) and ALT (140) elevated likely secondary to heparin drip -will continue to monitor with daily labs #Hyperglycemia #Type 2 diabetes, new diagnosis -blood glucose 162 -A1c 6.6 -Will continue to monitor daily BG and Counseled patient on dietary modification -Follow up with PCP to monitor A1c # Elevated troponin, type ll, likely secondary to demand ischemia - resolved -Troponin 0.077 -> 0.066 , BNP 280 Health Maintenance Disposition: telemetry for heparin drip for large bilateral PE and extensive DVT's DVT Prophylaxis: Pt is heparin drip GI Prophylaxis: Pantoprozol-40 IV Qday Diet: regular diet Lines: Peripheral lines Code status: Full Assessment and plan discussed with my senior resident Dr. Maldonado & attending physician Dr. Surjit Benjamin (PGY-1)- Internal medicine resident Attending Provider Attestation/Addendum I have examined the patient, reviewed labs and imaging findings, discussed the case with the resident(s), and reviewed entered orders. I agree with the plan of care as outlined in this note, with these additional summaries/recommendations: Patient seen at bedside. No acute overnight events. Patient appears comfortable and in no acute distress. Patient's O2 saturation is 96% on 1 L nasal cannula. Patient went for pulmonary thromboembolectomy with computer- assisted vacuum thrombectomy of the right pulmonary artery and appears to have tolerated the procedure well. Patient is currently hemodynamically stable. We will continue heparin gtt. and aPTT currently at goal between 60 and 80 seconds. We will transition to NOAC when able which will likely be tomorrow 11/12/24. Pulmonary embolism appears unprovoked indicating at least 6 to 12 months of anticoagulation. Hypercoagulable panel currently pending and patient will likely need to follow-up outpatient. Of note protein C and S can be altered in the setting of acute clot and if abnormal recommend repeating studies in 2 to 4 months. Patient will need follow up Echo and VQ in 3 months after AC to ensure no CTEPH Elevated troponin on admission has resolved. Patient was noted to have elevated troponin on admission most likely secondary to right heart strain from pulmonary embolism. Cardiology following, recommendations appreciated. Patient and family updated on the plan and in agreement. Repeat hematology and chemistry panel in AM. Dr. Surjit MD
--- NOTE | 2024-11-11 18:00 | ESPR_ITS ---
Documentation for date of: 11/11/24 Subjective Subjective Interval history: Patient seen and examined at bedside. As detailed in yesterday's progress note, patient had a repeat echocardiogram which still showed right heart strain and RV dilatation but better than before and hence decision was made to perform mechanical thrombectomy of the right side also. He had successful thromboembolectomy of the right pulmonary artery and its branches including the right upper, right lower as well as the right middle lobar branches on 11/11/2024. Related cardiac tracing showed significant improvement in the PA pressure mean from 45 mm to 35 mmHg. Patient tolerated the procedure well, without complications. Worsening features were placed to the left femoral access site as the right groin was used further thrombectomy of the left pulmonary artery and its branches couple of days ago. Heparin drip was resumed this morning around 11 AM Postprocedure this evening patient is doing very well and is back to his baseline status and wants to return home. Will plan to remove the paige tomorrow in the morning and will transition the heparin to Eliquis drip. transition to Eliquis 10 mg twice daily for 3 weeks as per PE protocol and then patient should be on Eliquis 5 mg twice daily. Patient recommended to continue to follow-up with me in 1 week after the procedure in my clinic. Exam Vital Signs Temp Pulse Resp BP Pulse Ox O2 Del Method O2 Flow Rate 98.0 F 91 14 102/77 96 Room Air 1 11/11/24 12:00 11/11/24 12:11/11/24 12:11/11/24 12:11/11/24 12:11/11/24 12:11/11/24 04:00 Narrative Exam Physical Exam General: Awake and in no acute distress. Conversational and non-toxic appearing. HEENT: Normocephalic, atraumatic, mucous membranes moist. Heart: Regular rate and rhythm, positive systolic murmur. Lungs: Clear to auscultation with no wheezing or crackles. Abdomen: Soft, nondistended, nontender, positive bowel sounds. ?No guarding or rebound tenderness. Neurologic: Alert and oriented x3, no gross neurological deficit, and patient able to move all 4 extremities. Extremities: Trace bilateral lower extremity edema. Skin: No rash or ecchymoses. Right thigh incision healing, notswelling/tenderness. Left thigh suture noted, bandage intact Objective Labs 11/11/24 05:07 11/11/24 05:07 Labs: Laboratory Results - last 24 hr 11/07/24 11/10/24 11/11/24 05:08 18:40 05:07 WBC 8.2 RBC 5.09 Hgb 13.5 Hct 40.9 L MCV 80 MCH 26.5 MCHC 33.0 RDW Std Deviation 40.8 Plt Count 242 Neut % (Auto) 52 Lymph % (Auto) 35 Cochran % (Auto) 8 Eos % (Auto) 4 Baso % (Auto) 0 Neut # (Auto) 4.3 Lymph # (Auto) 2.9 Cochran # (Auto) 0.7 Eos # (Auto) 0.3 Baso # (Auto) 0.0 Immature Gran # (Auto) 0.03 H Absolute Nucleated RBC 0.00 Immature Gran % 0 Nucleated RBC % 0 PT 11.8 INR 1.1 APTT 70.3 H 84.4 H D Activated Clotting Time Lupus Anticoagulant SEE NOTE LA PTT Screen >200 H LA Thrombin Time TNP LA dRVVT Screen Ratio 35 LA dRVVT Confirm Ratio TNP LA dRVVT Mix Ratio TNP dRVVT Mix Interpret TNP Hexagonal Phase Confirm NEGATIVE Protein C Antigen 89 Total Protein S Ag 83 Antithrombin III Ag 71 L Antithrombin III Activ 82 Sodium 142 Potassium 4.4 D Chloride 107 Carbon Dioxide 23.7 Anion Gap 11 BUN 20 Creatinine 1.1 Estim Creat Clear Calc 111.4 eGFR > 60 BUN/Creatinine Ratio 18 Glucose 124 H Calculated Osmolality 286 Calcium 8.8 Corrected Calcium 9.1 Phosphorus 3.5 Magnesium 2.0 Total Bilirubin 0.4 AST 62 H ALT 140 H Alkaline Phosphatase 80 Total Protein 6.1 Albumin 3.6 Globulin 2.5 Albumin/Globulin Ratio 1.4 CA 19-9 Antigen 3 11/11/24 11/11/24 08:24 10:25 WBC RBC Hgb Hct MCV MCH MCHC RDW Std Deviation Plt Count Neut % (Auto) Lymph % (Auto) Cochran % (Auto) Eos % (Auto) Baso % (Auto) Neut # (Auto) Lymph # (Auto) Cochran # (Auto) Eos # (Auto) Baso # (Auto) Immature Gran # (Auto) Absolute Nucleated RBC Immature Gran % Nucleated RBC % PT INR APTT 69.7 H D Activated Clotting Time 236.0 H Lupus Anticoagulant LA PTT Screen LA Thrombin Time LA dRVVT Screen Ratio LA dRVVT Confirm Ratio LA dRVVT Mix Ratio dRVVT Mix Interpret Hexagonal Phase Confirm Protein C Antigen Total Protein S Ag Antithrombin III Ag Antithrombin III Activ Sodium Potassium Chloride Carbon Dioxide Anion Gap BUN Creatinine Estim Creat Clear Calc eGFR BUN/Creatinine Ratio Glucose Calculated Osmolality Calcium Corrected Calcium Phosphorus Magnesium Total Bilirubin AST ALT Alkaline Phosphatase Total Protein Albumin Globulin Albumin/Globulin Ratio CA 19-9 Antigen Quality Measures Quality Measures VTE therapy Assessment & Plan Assessment Current Active Medications: Generic Name Dose Route Start Last Admin Trade Name Freq PRN Reason Stop Dose Admin Acetaminophen 650 mg 11/06/24 06:46 Acetaminophen 325 Mg Tablet PO 12/05/24 13:01 Q6H PRN Fever >100.3 Sodium Chloride 500 mls @ 100 mls/hr 11/11/24 09:07 11/11/24 10:05 Ns IV 11/11/24 14:06 Infused .Q5H ONE Infusion Heparin Sodium/Dextrose 25,000 unit in 250 mls @ 18.009 mls/hr 11/11/24 11:20 11/11/24 11:53 Heparin In D5w Ivpb IV 11/12/24 11:19 17.3 units/kg/hr .[id number] COLTON 18.009 mls/hr Administration Protocol 17.3 UNITS/KG/HR Ondansetron HCl 4 mg 11/05/24 13:10 Ondansetron Inj 2 Mg/Ml Inj 2 Ml IV 12/05/24 13:09 Q6H PRN NAUSEA OR VOMITING Protocol Pantoprazole Sodium 40 mg 11/05/24 13:15 11/11/24 11:52 Pantoprazole Inj 40 Mg Vial IVP 12/05/24 13:14 40 mg QDAY COLTON Administration Sennosides 1 tab 11/05/24 13:10 Senna Tablet PO 12/05/24 13:09 QDAY PRN constipation Protocol Plan Assessment and plan: Summary: Mr. Pillai is a 43-year-old male with history of right foot fracture 3 years ago and rib fracture 1 year ago who presented to [facility] ([facility] emergency department on 11/05/2024 with a chief complaint of substernal chest pain. Patient found to have multiple large bilateral pulmonary artery emboli on CTA, admitted to hospital for further management. # Acute hypoxic respiratory failure secondary to bilateral pulmonary artery emboli # Acute pulmonary embolism?bilateral right and left main PA and lobar arteries # Intermediate?low risk PE # Right heart strain, moderate to severe pulmonary hypertension by echo RVSP # Severe pulmonary hypertension, concern of CTEPH # Acute bilateral lower extremity DVT # Status post right heart cath and left lung pulmonary angiogram status post mechanical thrombectomy 11/10/23 #Status post right heart cath and right lung pulmonary angiogram status post mechanical thrombectomy 11/12/2023 Patient hemodynamically stable had mild tachycardia, respiratory rate less than 30 throughout hospitalization, no history of heart failure or lung disease. 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 Patient also endorsed history of frequent air travel to [place] about every 3 months on 2 hour-long flight frequently. He also complained of 15 pound weight loss unintentionally recently as well. On presentation CTA showed multiple large bilateral pulmonary artery emboli EKG in emergency department showed sinus rhythm, heart rate 98 T wave inversion in V1?V3, inverted T wave in leads II, III, aVF and incomplete right bundle branch block. Echocardiogram on 11/07/2024 showed Normal left ventricular size and function, approximate ejection fraction is 55%. Right ventricle is dilated with paradoxical septal motion Severe Pulmonary hypertension PA systolic Pressure of 95 mmHg. Right atrium is dilated. Trace mitral and mild tricuspid regurgitation TR velocity 4.5 m/sec IVC dilated. Patient's VQ scan also showed multiple mismatch perfusion defects consistent with known pulmonary emboli. PESI score 73 points, class II, low risk 1.7-3.5% 30-day mortality in this group, right heart strain, dilated right ventricle with paradoxical septal motion and severe pulmonary hypertension, right atrium dilation noted on TTE, patient has intermediate-low risk PE. Patient presentation all the imaging findings along with the lab findings were discussed in detail with the PERT team including pulmonary Dr. Lopez as well as Dr. Pacheco. Decision was made to perform right heart cardiac catheterization with measurements of right heart pressures and then perform pulmonary angiogram to evaluate pulmonary embolism. Based on the findings, plan was to perform mechanical thrombectomy as it was deemed to be helpful for the patient given more acute clot based on the VQ scan also his overall presentation. He does meet criteria for intermediate risk PE with elevated BNP, troponin, right heart strain as well as dilated RV: LV at 1.1: 1, hypoxia. Patient had right heart cath followed by pulmonary angiogram and left main PA and lobar branches mechanical thrombectomy on 11/09/2024, significant PE thrombus burden noted on left pulmonary artery. Multiple embolic thrombi were removed from left main PA and the lobar branches, status post mechanical thrombectomy with 16 F penumbra catheter and post thrombectomy angiogram showed significant improvement. Patient's procedure was complicated with patient in atrial flutter, patient was cardioverted back to NSR Hence procedure was stopped and angiogram of right pulmonary artery was not performed. Patient was reassessed on 11/10/2024 with echocardiogram which showed paradoxical septal motion still but better than previous echo. RV pressure and volume overload was noted, moderate TR with V-max 4 m/s, RVSP about 80 mmHg. Hence patient was rescheduled for right-sided pulmonary angiogram with mechanical thrombectomy. Patient was restarted on heparin drip postprocedure on 11/09. As detailed in yesterday's progress note, patient had a repeat echocardiogram which still showed right heart strain and RV dilatation but better than before and hence decision was made to perform mechanical thrombectomy of the right side also. He had successful thromboembolectomy of the right pulmonary artery and its branches including the right upper, right lower as well as the right middle lobar branches on 11/11/2024. Related cardiac tracing showed significant improvement in the PA pressure mean from 45 mm to 35 mmHg. Patient tolerated the procedure well, without complications. Worsening features were placed to the left femoral access site as the right groin was used further thrombectomy of the left pulmonary artery and its branches couple of days ago. Heparin drip was resumed this morning around 11 AM Postprocedure this evening patient is doing very well and is back to his baseline status and wants to return home. Will plan to remove the paige tomorrow in the morning and will transition the heparin to Eliquis drip. transition to Eliquis 10 mg twice daily for 3 weeks as per PE protocol and then patient should be on Eliquis 5 mg twice daily. Patient recommended to continue to follow-up with me in 1 week after the procedure in my clinic. Recommendations: -Resume heparin drip at 11 AM later today -Will monitor patient overnight, will consider starting patient on DOAC therapy in a.m., will consider Eliquis 10 mg p.o. twice daily starting tomorrow if patient is stable overnight. -Resume diet, monitor patient closely. -Follow-up factor V, Antithrombin III, prothrombin and lupus anticoagulant workup -Rest of the hypercoagulable workup including protein C S and other coagulation factors will not be accurate due to the acute consumption of the coagulation factors and would recommend to ignore the results at the present point of time. Patient will need complete workup after 8 weeks of stopping anticoagulation which can be done later as outpatient after he completes full therapy for his PE and DVT. # NSTEMI type II demand ischemia, likely secondary to PE # Elevated troponin Patient did not endorse chest pain on presentation, substernal. Troponin 0.077 - > 0.066 -> 0.085 -> 0.104 -> 0.065; EKG showed sinus rhythm, heart rate 98 T wave inversion in V1?V3, inverted T wave in leads II, III, aVF and incomplete right bundle branch block. Patient's elevated troponin likely in setting of pulmonary embolism. # New onset diabetes mellitus Patient's hemoglobin A1c 6.6 during hospitalization, otherwise blood glucose has been in the range of 100-120, did have polycythemia on presentation, hemoglobin 17.1, denies smoking. Consider repeating A1c outpatient, outpatient workup/management for diabetes. #Polycythemia Patient's hemoglobin 17.1 on presentation, patient denies smoking, possible in setting of chronic hypoxia considering patient had longstanding chest pain. Polycythemia workup-Aryan, erythropoietin ordered by primary care team #Unintentional weight loss Patient and unintentional weight loss about 15 pounds in the last couple of months. Patient needs screening for malignancy. Consider outpatient colonoscopy and outpatient workup post discharge. Thank you for the consult and allowing to participate in the care of the patient. Cardiology will continue to follow. Case discussed with Attending Dr. Fox. Kimmie Diamond PGY1 Disclaimer: This note was dictated by speech recognition. Minor errors in clinical information systems director may be present due to voice recognition software. Attending Provider Attestation/Addendum I have personally seen and examined the patient separately on the above date of service and discussed the plan of care with the resident. I reviewed the resident Dr. Kimmie Diamond consultation progress note and agree with the resident findings and plan in the note above and have also edited the documentation to reflect my findings and plan. Sebastian Fox M.D. Interventional Cardiology
[2024-11-11 18:45] LABS: Partial Thromboplastin Time 59.6 Seconds (22.0-36.0)
[2024-11-12] VITALS: BP 117/68; PULSE 78; PULSE 81; RESP 16; TEMP 36.1; O2SAT 94
[2024-11-12 00:14] LABS: Partial Thromboplastin Time 75.4 Seconds (22.0-36.0)
[2024-11-12] MEDS: Heparin/D5w 25K 250 ML Ivpb 25,000 UNIT/250 ML BAG 18.009 UNIT IV (01:40)
[2024-11-12 04:00] VITALS: BP 105/71; PULSE 78; PULSE 79; RESP 12; TEMP 35.9; O2SAT 95
[2024-11-12 05:47] VITALS: BMI 29.5
[2024-11-12 06:11] LABS: Basophils # (Auto) 0.1 Thou/mm3 (0.0-0.2); Basophils % (Auto) 1 % (0-2.5); Eosinophils # (Auto) 0.3 Thou/mm3 (0.0-0.5); Eosinophils % (Auto) 3 % (0-10); Hematocrit 37.8 % (41.0-53.0); Hemoglobin 12.5 g/dL (13.5-16.0); Immature Granulocytes % (Auto) 1 % (0-0); Immature Granulocytes Auto 0.05 Thou/mm3 (0.00-0.00); Lymphocytes # (Auto) 3.1 Thou/mm3 (1.0-4.8); Lymphocytes % (Auto) 32 % (10-50); Mean Corpuscular HGB Conc 33.1 g/dl (31.0-37.0); Mean Corpuscular Hemoglobin 26.4 pg (25.0-35.0); Mean Corpuscular Volume 80 fL (80-100); Monocytes # (Auto) 0.6 Thou/mm3 (0.0-0.8); Monocytes % (Auto) 6 % (0-12); Neutrophils # (Auto) 5.8 Thou/mm3 (1.8-7.7); Neutrophils % (Auto) 58 % (37-80); Nucleated Red Blood Cell % 0 /100 WBC (0); Platelet Count 246 Thou/mm3 (140-440); RDW Standard Deviation 40.2 fL (35.1-43.9); Red Blood Count 4.73 Miln/mm3 (4.50-5.90); White Blood Count 9.9 Thou/mm3 (3.8-10.6)
[2024-11-12 06:45] LABS: Partial Thromboplastin Time 81.2 Seconds (22.0-36.0)
[2024-11-12 06:53] LABS: Alanine Aminotransferase 144 U/L (10-49); Albumin, Serum 3.7 gm/dL (3.5-5.0); Albumin/Globulin Ratio 1.4 (1.2-2.2); Alkaline Phosphatase 71 U/L (46-116); Anion Gap 10 (7-16); Aspartate Amino Transferase 71 U/L (0-34); BUN/Creatinine Ratio 15 Ratio (12-20); Bilirubin,Total 0.5 mg/dL (0.3-1.2); Blood Urea Nitrogen 18 mg/dL (9-23); Calcium 8.9 mg/dL (8.3-10.6); Calcium (Corrected) 9.1 mg/dL (8.5-10.1); Carbon Dioxide 24.9 mMol/L (20.0-31.0); Chloride 106 mMol/L (98-107); Creatinine (Component) 1.2 mg/dL (0.6-1.3); Estimated Creatinine Clearance 102.2 mL/min (>60); Globulin 2.6 gm/dL (2.3-3.5); Glucose 120 mg/dL (74-106); Magnesium 1.8 mg/dL (1.6-2.6); Osmolality,Calculated 284 (275-295); Potassium 4.1 mMol/L (3.4-5.1); Sodium 141 mMol/L (136-145); Total Protein 6.3 gm/dL (5.7-8.2); eGFR > 60 See Note
[2024-11-12 08:00] VITALS: BP 104/71; PULSE 105; PULSE 83; RESP 18; TEMP 36.2; O2SAT 94
[2024-11-12 08:37] VITALS: PULSE 97; RESP 18; RESP 95
[2024-11-12] MEDS: PANTOPRAZOLE INJ 40 MG VIAL IVP (09:13)
[2024-11-12] MEDS: Magnesium Sulfate 2 GM Ivpb 2 GM/50 ML BAG IV (09:13)
--- NOTE | 2024-11-12 09:50 | ESPR_ITS ---
Documentation for date of: 11/12/24 Subjective Subjective Interval history: Patient seen and examined at bedside. Patient is stable on room air, tolerated procedure well yesterday. No swelling/hematoma/redness noted at access site on both left and right groin. Patient was started on heparin drip yesterday postprocedure, transitioning patient to p.o. Eliquis 10 mg twice daily for 21 days. Will discontinue heparin drip 2 hours post first dose of Eliquis. Will assess suture site in left groin region later today and will remove the suture. Otherwise patient is stable, has no current complaints. Exam Vital Signs Temp Pulse Resp BP Pulse Ox O2 Del Method O2 Flow Rate 96.7 F L 97 18 105/71 95 Room Air 1 11/12/24 04:00 11/12/24 08:37 11/12/24 08:37 11/12/24 04:00 11/12/24 04:00 11/12/24 04:00 11/11/24 04:00 Narrative Exam Physical Exam General: Awake and in no acute distress. Conversational and non-toxic appearing. HEENT: Normocephalic, atraumatic, mucous membranes moist. Heart: Regular rate and rhythm, positive systolic murmur. Lungs: Clear to auscultation with no wheezing or crackles. Abdomen: Soft, nondistended, nontender, positive bowel sounds. ?No guarding or rebound tenderness. Neurologic: Alert and oriented x3, no gross neurological deficit, and patient able to move all 4 extremities. Extremities: Trace bilateral lower extremity edema. Skin: No rash or ecchymoses. Right thigh incision healing, notswelling/tenderness. Left thigh bandage intact. Objective Labs 11/12/24 04:56 11/12/24 04:56 Labs: Laboratory Results - last 24 hr 11/11/24 11/11/24 11/11/24 08:24 10:25 17:55 WBC RBC Hgb Hct MCV MCH MCHC RDW Std Deviation Plt Count Neut % (Auto) Lymph % (Auto) [place] % (Auto) Eos % (Auto) Baso % (Auto) Neut # (Auto) Lymph # (Auto) [place] # (Auto) Eos # (Auto) Baso # (Auto) Immature Gran # (Auto) Absolute Nucleated RBC Immature Gran % Nucleated RBC % APTT 69.7 H D 59.6 H D Activated Clotting Time 236.0 H Sodium Potassium Chloride Carbon Dioxide Anion Gap BUN Creatinine Estim Creat Clear Calc eGFR BUN/Creatinine Ratio Glucose Calculated Osmolality Calcium Corrected Calcium Magnesium Total Bilirubin AST ALT Alkaline Phosphatase Total Protein Albumin Globulin Albumin/Globulin Ratio 11/11/24 11/12/24 23:29 04:56 WBC 9.9 RBC 4.73 Hgb 12.5 L Hct 37.8 L MCV 80 MCH 26.4 MCHC 33.1 RDW Std Deviation 40.2 Plt Count 246 Neut % (Auto) 58 Lymph % (Auto) 32 [place] % (Auto) 6 Eos % (Auto) 3 Baso % (Auto) 1 Neut # (Auto) 5.8 Lymph # (Auto) 3.1 [place] # (Auto) 0.6 Eos # (Auto) 0.3 Baso # (Auto) 0.1 Immature Gran # (Auto) 0.05 H Absolute Nucleated RBC 0.00 Immature Gran % 1 H Nucleated RBC % 0 APTT 75.4 H D 81.2 H Activated Clotting Time Sodium 141 Potassium 4.1 Chloride 106 Carbon Dioxide 24.9 Anion Gap 10 BUN 18 Creatinine 1.2 Estim Creat Clear Calc 102.2 eGFR > 60 BUN/Creatinine Ratio 15 Glucose 120 H Calculated Osmolality 284 Calcium 8.9 Corrected Calcium 9.1 Magnesium 1.8 Total Bilirubin 0.5 AST 71 H ALT 144 H Alkaline Phosphatase 71 Total Protein 6.3 Albumin 3.7 Globulin 2.6 Albumin/Globulin Ratio 1.4 Quality Measures Quality Measures VTE therapy Assessment & Plan Assessment Current Active Medications: Generic Name Dose Route Start Last Admin Trade Name Freq PRN Reason Stop Dose Admin Acetaminophen 650 mg 11/06/24 06:46 Acetaminophen 325 Mg Tablet PO 12/05/24 13:01 Q6H PRN Fever >100.3 Apixaban 10 mg 11/12/24 09:30 Apixaban 2.5 Mg Tablet PO 11/18/24 21:01 BID COLTON Heparin Sodium/Dextrose 25,000 unit in 250 mls @ 18.009 mls/hr 11/11/24 11:20 11/12/24 07:00 Heparin In D5w Ivpb IV 11/12/24 11:19 15.3 units/kg/hr .[id number] COLTON 15.927 mls/hr Titration Protocol 17.3 UNITS/KG/HR Ondansetron HCl 4 mg 11/05/24 13:10 Ondansetron Inj 2 Mg/Ml Inj 2 Ml IV 12/05/24 13:09 Q6H PRN NAUSEA OR VOMITING Protocol Pantoprazole Sodium 40 mg 11/05/24 13:15 11/12/24 09:13 Pantoprazole Inj 40 Mg Vial IVP 12/05/24 13:14 40 mg QDAY COLTON Administration Sennosides 1 tab 11/05/24 13:10 Senna Tablet PO 12/05/24 13:09 QDAY PRN constipation Protocol Plan Assessment and plan: Summary: Mr. Pillai is a 43-year-old male with history of right foot fracture 3 years ago and rib fracture 1 year ago who presented to [facility] emergency department on 11/05/2024 with a chief complaint of substernal chest pain. Patient found to have multiple large bilateral pulmonary artery emboli on CTA, admitted to hospital for further management. # Acute hypoxic respiratory failure secondary to bilateral pulmonary artery emboli # Acute pulmonary embolism?bilateral right and left main PA and lobar arteries # Intermediate?low risk PE # Right heart strain, moderate to severe pulmonary hypertension by echo RVSP # Severe pulmonary hypertension, concern of CTEPH # Acute bilateral lower extremity DVT # Status post right heart cath and left lung pulmonary angiogram status post mechanical thrombectomy 11/10/23 #Status post right heart cath and right lung pulmonary angiogram status post mechanical thrombectomy 11/12/2023 Patient hemodynamically stable had mild tachycardia, respiratory rate less than 30 throughout hospitalization, no history of heart failure or lung disease. 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 Patient also endorsed history of frequent air travel to [place] about every 3 months on 2 hour-long flight frequently. He also complained of 15 pound weight loss unintentionally recently as well. On presentation CTA showed multiple large bilateral pulmonary artery emboli EKG in emergency department showed sinus rhythm, heart rate 98 T wave inversion in V1?V3, inverted T wave in leads II, III, aVF and incomplete right bundle branch block. Echocardiogram on 11/07/2024 showed Normal left ventricular size and function, approximate ejection fraction is 55%. Right ventricle is dilated with paradoxical septal motion Severe Pulmonary hypertension PA systolic Pressure of 95 mmHg. Right atrium is dilated. Trace mitral and mild tricuspid regurgitation TR velocity 4.5 m/sec IVC dilated. Patient's VQ scan also showed multiple mismatch perfusion defects consistent with known pulmonary emboli. PESI score 73 points, class II, low risk 1.7-3.5% 30-day mortality in this group, right heart strain, dilated right ventricle with parad septal motion and severe pulmonary hypertension, right atrium dilation noted on TTE, patient has intermediate-low risk PE. Patient presentation all the imaging findings along with the lab findings were discussed in detail with the PERT team including pulmonary Dr. Lopez as well as Dr. Pacheco. Decision was made to perform right heart cardiac catheterization with measurements of right heart pressures and then perform pulmonary angiogram to evaluate pulmonary embolism. Based on the findings, plan was to perform mechanical thrombectomy as it was deemed to be helpful for the patient given more acute clot based on the VQ scan also his overall presentation. He does meet criteria for intermediate risk PE with elevated BNP, troponin, right heart strain as well as dilated RV: LV at 1.1: 1, hypoxia. Patient had right heart cath followed by pulmonary angiogram and left main PA and lobar branches mechanical thrombectomy on 11/09/2024, significant PE thrombus burden noted on left pulmonary artery. Multiple embolic thrombi were removed from left main PA and the lobar branches, status post mechanical thrombectomy with 16 F penumbra catheter and post thrombectomy angiogram showed significant improvement. Patient's procedure was complicated with patient in atrial flutter, patient was cardioverted back to NSR. Hence procedure was stopped and angiogram of right pulmonary artery was not performed. Patient was reassessed on 11/10/2024 with echocardiogram which showed paradoxical septal motion still but better than previous echo. RV pressure and volume overload was noted, moderate TR with V-max 4 m/s, RVSP about 80 mmHg. Hence patient was rescheduled for right-sided pulmonary angiogram with mechanical thrombectomy. Patient was restarted on heparin drip postprocedure on 11/09. ECHO 11/10/24: Normal LV size and function with EF 60-65%. Diastolic Dysfunction stage I. Normal RV size and function. Estimated RVSP severely elevated 80 mmHg. Parodoxical spetal motion noted but better than previous echo. RV pressure and voulme overload noted. RA is mildly dilated. IVC dilated. Moderate TR with TR Vmax at 4 m/s. Trace to mild MR. Patient had a repeat echocardiogram 11/10 which still showed right heart strain and RV dilatation but better than before and hence decision was made to perform mechanical thrombectomy of the right side also. He had successful thromboembolectomy of the right pulmonary artery and its branches including the right upper, right lower as well as the right middle lobar branches on 11/11/2024. Related cardiac tracing showed significant improvement in the PA pressure mean from 45 mm to 35 mmHg. Patient tolerated the procedure well, without complications. Postprocedure, patient was resumed on Heparin drip. Recommendations: -Transition patient to Eliquis 10 mg p.o. twice daily, will discontinue heparin drip at 11:30 AM -Continue Eliquis 10 mg twice daily for 3 weeks as per PE protocol and then patient should be on Eliquis 5 mg twice daily. -Follow up in office in 1-2 weeks after discharge. -Will assess left groin suture site and will remove suture later today. -Resume diet, monitor patient closely. -Follow-up factor V, Antithrombin III, prothrombin and lupus anticoagulant workup -Rest of the hypercoagulable workup including protein C S and other coagulation factors will not be accurate due to the acute consumption of the coagulation factors and would recommend to ignore the results at the present point of time. Patient will need complete workup after 8 weeks of stopping anticoagulation which can be done later as outpatient after he completes full therapy for his PE and DVT. # NSTEMI type II demand ischemia, likely secondary to PE # Elevated troponin Patient did not endorse chest pain on presentation, substernal. Troponin 0.077 - > 0.066 -> 0.085 -> 0.104 -> 0.065; EKG showed sinus rhythm, heart rate 98 T wave inversion in V1?V3, inverted T wave in leads II, III, aVF and incomplete right bundle branch block. Patient's elevated troponin likely in setting of pulmonary embolism. # New onset diabetes mellitus Patient's hemoglobin A1c 6.6 during hospitalization, otherwise blood glucose has been in the range of 100-120, did have polycythemia on presentation, hemoglobin 17.1, denies smoking. Consider repeating A1c outpatient, outpatient workup/management for diabetes. #Polycythemia Patient's hemoglobin 17.1 on presentation, patient denies smoking, possible in setting of chronic hypoxia considering patient had longstanding chest pain. Polycythemia workup-Aryan, erythropoietin ordered by primary care team #Unintentional weight loss Patient and unintentional weight loss about 15 pounds in the last couple of months. Patient needs screening for malignancy. Consider outpatient colonoscopy and outpatient workup post discharge. Thank you for the consult and allowing to participate in the care of the patient. Cardiology will continue to follow. Case discussed with Attending Dr. Fox. Kimmie Diamond PGY1 Disclaimer: This note was dictated by speech recognition. Minor errors in project control officer may be present due to voice recognition software. Attending Provider Attestation/Addendum I have personally seen and examined the patient separately on the above date of service and discussed the plan of care with the resident. I reviewed the resident Dr. Kimmie Diamond consultation progress note and agree with the resident findings and plan in the note above and have also edited the documentation to reflect my findings and plan. Sebastian Fox M.D. Interventional Cardiology
[2024-11-12] MEDS: APIXABAN 2.5 MG TABLET 10 MG PO (10:35)
[2024-11-12 12:00] VITALS: BP 127/77; PULSE 84; PULSE 86; RESP 18; TEMP 36.4; O2SAT 95
[2024-11-12 16:00] VITALS: BP 131/85; PULSE 87; PULSE 88; RESP 16; TEMP 36.4; O2SAT 96
--- NOTE | 2024-11-12 16:56 | ESDS_ITS ---
<Statement entered by Devin Quiles MD - 11/12/24 18:08> I have examined the patient, reviewed labs and imaging findings, discussed the case with the resident(s), and reviewed entered orders. I agree with the plan of care as outlined in this note. Advised to continue with Eliquis as directed, follow-up with primary care and cardiology within 1 to 2 weeks. Devin Quiles MD Planned Discharge Date 11/12/24 DS: Providers Provider Date of admission: 11/05/24 13:02 Primary care physician: Ric Sanchez PA-C Admitting Provider: Asad Gallardo DO Attending Provider on Admission: Rah Eddy MD Consults: 11/05/24 13:11 Consult to Cardiology Routine Comment: Consulting Provider: Lamont Ferro 11/08/24 09:55 Consult to Cardiology Routine Comment: Consulting Provider: Sebastian Fox Attending Provider on DC: Devin Quiles MD Discharging Provider: Devin Quiles MD DS: Diagnosis Problem List Completed Was Problem List Reviewed/Reconciled?: Yes Hospital Course Hospital Course Hospital course: DC Summary: This is a 43-year-old male with no significant past medical history presented to [facility] ED on 11/05/24 complaining of substernal chest pain and shortness of breath. Patient had a chest trauma with rib fracture approximately a year ago since then he has been experiencing chest pain which has progressively worsened with worsening shortness of breath. Initially, patient had tachycardia, tachypnea and was hypoxic requiring supplemental oxygen via nasal cannula. He also had unintentional 15 pound weight lost in the last couple months. Chest CTA was significant for multiple large bilateral pulmonary artery emboli in the main pulmonary arteries right and left upper lobe pulmonary artery branches. Bilateral lower extremities Doppler ultrasound showed extensive bilateral DVTs in the right superficial femoral and right peroneal veins as well as left superficial femoral and popliteal and peroneal veins. He was admitted for pulmonary embolism management. He was initially started on heparin drip and hypercoagulable workup was sent which patient is advised to follow-up. Patient's CBC, CMP is unremarkable. Echocardiogram was significant for severe pulmonary hypertension with EF 55% right ventricle dilated with paradoxical septal motion. Severe Pulmonary hypertension PA systolic Pressure of 95 mmHg. Right atrium is dilated.Trace mitral and mild tricuspid regurgitation TR velocity 4.5 m/sec. IVC dilated. VQ scan was performed which showed multiple mismatch perfusion defect consistent with known pulmonary embolus.PESI score 73 points, class II, low risk 1.7-3.5% 30-day mortality in this group, right heart strain, dilated right ventricle with paradoxical septal motion and severe pulmonary hypertension, right atrium dilation noted on TTE, patient has intermediate-low risk PE. Patient's presentation and lab findings were discussed in detail with PERT team including pulmonary, Dr. Lopez as well as Dr. Pacheco. Decision was made to perform right heart catheterization with placement of right heart pressures and then perform pulmonary angiogram to evaluate PE. Based on the findings, patient underwent mechanical thrombectomy on 11/09/2024, significant PE thrombus burden noted on left pulmonary artery. Multiple embolic thrombi were removed from left main PA and the lobar branches, status post mechanical thrombectomy with 16 F penumbra catheter and post thrombectomy angiogram showed significant improvement. Patient's procedure was complicated with patient in atrial flutter, patient was cardioverted back to NSR.Hence procedure was stopped and angiogram of right pulmonary artery was not performed. Patient was reassessed on 11/10/2024 with echocardiogram which showed paradoxical septal motion still but better than previous echo. RV pressure and volume overload was noted, moderate TR with V-max 4 m/s, RVSP about 80 mmHg. Hence patient was rescheduled for right-sided pulmonary angiogram with mechanical thrombectomy. Patient was restarted on heparin drip postprocedure on 11/09. Repeat echocardiogram still showed right heart strain and RV dilation but improved from previous findings. He had successful thrombectomy of the right pulmonary artery and its branches. Cardiac tracings showed improvement in PA pressures mean from 45 mmHg to 35 mmHg. Patient tolerated the procedure well without complications. Pascale were removed this morning by chro. Patient was medically stable to be discharged. Patient was advised to continue Eliquis 10 mg twice daily for 3 weeks as per PE protocol and then should be switched to 5 mg twice daily. Recommended to continue follow-up with chro in a week after the procedure. Patient be discharged to home. Discharge diagnosis: # Acute hypoxic respiratory failure secondary to bilateral pulmonary artery emboli # Acute pulmonary embolism?bilateral right and left main PA and lobar arteries # Intermediate?low risk PE # Right heart strain, moderate to severe pulmonary hypertension by echo RVSP # Severe pulmonary hypertension, concern of CTEPH # Acute bilateral lower extremity DVT # Status post right heart cath and left lung pulmonary angiogram status post mechanical thrombectomy 11/10/23 #Status post right heart cath and right lung pulmonary angiogram status post mechanical thrombectomy 11/12/2023 # NSTEMI type II demand ischemia, likely secondary to PE # Elevated troponin #New onset diabetes mellitus #Polycythemia #Unintentional weight loss DC instructions: Continue Eliquis 10 mg twice daily for 3 weeks/21 days and then switch to Eliquis 5 mg twice daily for PE Your A1c came out 6.6 recommended to follow-up on repeat A1c as outpatient with PCP and modify diet Follow-up factor V, Antithrombin III, prothrombin and lupus anticoagulant workup Follow-up with chro, Dr. Fox By scheduling an appointment on [phone]. Located at [address] [place] [address] within a week Follow-up with PCP as outpatient within 2 weeks Patient was seen and discussed with attending physician, Dr. Kb Maldonado MD, PGY 2 Time Spent with Patient Time attestation: Total time spent providing and/or coordinating discharge services: Exam Vital Signs Temp Pulse Resp BP Pulse Ox O2 Del Method O2 Flow Rate 97.5 F 88 16 131/85 H 96 Room Air 1 11/12/24 16:00 11/12/24 16:00 11/12/24 16:00 11/12/24 16:00 11/12/24 16:00 11/12/24 16:00 11/11/24 04:00 Narrative Exam GENERAL: A&Ox3 . Awake, Not in acute distress NEURO: no focal neurological deficits HEENT: Atraumatic, Normocephalic. mucous membranes moist. Eyes open, symmetrical, & clear HEART: Regular rate and regular rhythm. S1-S2. No murmurs/rubs/gallops. LUNGS: Clear to auscultation with no wheezing or crackles. ABDOMEN: soft, non-distended, non-tender, bowel sounds heard, no guarding or rebound tenderness SKIN: No Rash or ecchymoses EXTREMITIES: No edema, tenderness, able to move all 4 extremities, pedal pulses palpated Discharge Plan Plan Patient Disposition: HOME (Self Care) Patient condition on transfer: Stable Care Plan Goals: Continue Eliquis 10 mg twice daily for 3 weeks/21 days and then switch to Eliquis 5 mg twice daily for PE Your A1c came out 6.6 recommended to follow-up on repeat A1c as outpatient with PCP and modify diet Follow-up factor V, Antithrombin III, prothrombin and lupus anticoagulant workup Follow-up with chro, Dr. Fox By scheduling an appointment on [phone]. Located at [address] [place] [address] within a week Follow-up with PCP as outpatient within 2 weeks Prescriptions/Referrals Prescriptions/Med Rec: New Eliquis 5 mg tablet 10 mg PO BID 21 Days Qty: 84 0RF Rx Instructions: Continue Eliquis 10 mg twice daily for 21 days Eliquis 5 mg tablet 5 mg PO BID Qty: 90 0RF Rx Instructions: After completing 10 mg dose of Eliquis, start 5 mg dose of Eliquis twice daily. Referrals: Sebastian Fox MD [Physician] - Ric Sanchez PA-C [Primary Care Provider] - Patient/Caregiver Discharge Instructions Education Materials: A1C, Diabetes and Heart Disease, Long-Term Complications of Diabetes, Healthy Meals for Diabetes, Diabetes: Meal Planning, Diabetes Carbs Fats Protein, Diabetes and High Blood Pressure Print Language: Ken[place] Stand Alone Forms: [facility] Award Info., Patient Portal Info Letter Discharge Order Discharge Orders: Discharge (Routine); Ordered 11/12/24 Ordered By: Harry Maldonado Quality Discharge Quality Measures VTE therapy (Heparin drip)
[2024-11-14 07:07] LABS: Homocysteine* 11.1 umol/L (<11.4)
[2024-11-14 07:07] LABS: Factor V Leiden Mutation NEGATIVE
== END 2024-11-12 17:55 | disposition home or self-care (01) | DRG 163 ==
LOC: SERX 11:51 → SERHOLD 13:12 → S2NX 17:18
PROVIDERS: Internal Medicine Cardiovascular Disease; Nurse Practitioner Primary Care; Student in an Organized Health Care Education/Training Program; Admitting Provider Student in an Organized Health Care Education/Training Program; Emergency Provider Emergency Medicine; PCP Physician Assistant; Visit Provider Student in an Organized Health Care Education/Training Program
DX: I26.99 Other pulmonary embolism without acute cor pulmonale (principal); I21.A1 Myocardial infarction type 2; J96.01 Acute respiratory failure with hypoxia; D68.62 Lupus anticoagulant syndrome; I82.411 Acute embolism and thrombosis of right femoral vein; I82.403 Acute embolism and thrombosis of unspecified deep veins of lower extremity, bilateral; I48.92 Unspecified atrial flutter; I82.432 Acute embolism and thrombosis of left popliteal vein; I82.453 Acute embolism and thrombosis of peroneal vein, bilateral; I26.94 Multiple subsegmental thrombotic pulmonary emboli without acute cor pulmonale; E87.70 Fluid overload, unspecified; I45.10 Unspecified right bundle-branch block; D75.1 Secondary polycythemia; I27.24 Chronic thromboembolic pulmonary hypertension; R63.4 Abnormal weight loss; E11.65 Type 2 diabetes mellitus with hyperglycemia; Z79.01 Long term (current) use of anticoagulants; Z87.81 Personal history of (healed) traumatic fracture
CPT/HCPCS: 36415; 71046; 71275; 75625; 78582; 80053; 80061; 80074; 80307; 80320; 81241; 82378; 82668; 83036; 83090; 83690; 83735; 83880; 84100; 84443; 84484; 85025; 85300; 85301; 85302; 85305; 85347; 85610; 85613; 85730; 86146; 86147; 86148; 86301; 86304; 86331; 86635; 87400; 87811; 93005; 93306; 93970; 96374; 99152; 99153; 99285; A4649; A46499; A9539; A9540; C1751; C1769; C1894; J0171; J0461; J1643; J1644; J2250; J2310; J2371; J2470; J3010; J3475; J3490; J7030; Q9967; A9270; G0480; J2305

== ENCOUNTER 2024-11-25 15:36 | Outpatient (AMB) | payer BC, SELFPAY ==
[2024-11-25 15:43] VITALS: BP 114/75; PULSE 86; RESP 16; TEMP 36.8; O2SAT 98; BMI 27.8
--- NOTE | 2024-11-25 15:43 | ACNOTE_ITS ---
Vital Signs 11/25/24 15:43 Height 1.88 m Height Method Stated Weight 98.486 kg Weight Measurement Method Standing Scale BMI 27.8 BP 114/75 Blood Pressure Source Automatic Cuff Blood Pressure Location Left Upper Arm Position Sitting Respiration 16 Pulse 86 Pulse Source Monitor Temp 98.3 F Temp Source Oral Pulse Oximetry (%) 98 Oxygen Delivery Method Room Air Allergies/Meds Allergies & Medications Allergies No Known Allergies Allergy (Verified 11/25/24 15:45) Medication Reconciliation apixaban 5 mg tablet (Eliquis) 5 mg PO BID #90 tabs 11/12/24 [Rx Confirmed 11/25/24] apixaban 5 mg tablet (Eliquis) 10 mg (2 x 5 mg) PO BID 21 days #84 tabs 11/12/24 [Rx Confirmed 11/25/24] MA Intake Visit Data Collection New Patient or Established: Established Patient (seen at [facility] within 3 years) Seen by Clinical Staff ONLY (RN/MA): No Pain Present Currently: No Pain scale:: 0 Pain Scale Used: [place]-Alexander/Numerical Telecommunications Network Engineer Required: No PCP or OBGYN visit in last 3 months: Yes Hx Now: No Smoking Status Smoking Status: Never smoker Immunization / Flu Flu Vaccine in the Last 12 Months: No Flu Vaccine Exclusion Criteria: No Exclusion Criteria Past Medical History Past Medical History CARDIAC: Negative Cardiac Disorders or Congestive Heart Failure RESPIRATORY: Negative Chronic Obstructive Pulmonary Disease (COPD) or Asthma GENITOURINARY: Negative Renal Disease ENDOCRINE: Negative Diabetes Mellitus Type 1 or Diabetes Mellitus Type 2 HEMATOLOGIC: Negative Sickle Cell Disease Social History SMOKING STATUS: Smoking status: Never smoker ALCOHOL: Alcohol Intake: Never HOUSING: Housing: House LIVES WITH: Lives With: Family Past Medical History Comments PMH COMMENT: PMH: Positive for right foot fracture 3 years ago and rib fracture 1 year ago PSHx: Denies Allergies: Denies Social history: -Smoking: Denies -Alcohol Use: Denies -Illicit Drug Use: Denies -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 Patient Portal Questionaires PHQ-9 PHQ-2 Over the last 2 weeks, how often have you been bothered by any of the following problems? 1. Little interest or pleasure in doing things: not at all 2. Feeling down, depressed, or hopeless: not at all Total score: 0 PHQ-9 3. Trouble falling or staying asleep, or sleeping too much: Not at all 4. Feeling tired or having little energy: Not at all 5. Poor appetite or overeating: Not at all 6. Feeling bad about yourself - or that you are a failure or have let yourself or your family down: Not at all 7. Trouble concentrating on things, such as reading the newspaper or watching television: Not at all 8. Moving or speaking so slowly that other people could have noticed? - Or the opposite - being so fidgety or restless that you have been moving around a lot more than usual: not at all 9. Thoughts that you would be better off or of hurting yourself in some way: Not at all Total score: 0 Source: Developed by Drs. Riaz Newell, Mary Arguello, Naseem Palacios and colleagues, with an educational carolina from [employer]. Depression screen completed yes Social History Living Situation History Housing: House Tobacco History Smoking Status: Never smoker Alcohol History Alcohol Intake: Never Review of Systems Report any current symptoms Only answer those that you have currently: Past Medical History Past Medical History Have you ever been diagnosed with any of the following: Cardiology Problems Congestive Heart Failure: No Respiratory Problems Chronic Obstructive Pulmonary Disease (COPD): No Asthma: No Genital/Urinary Problems Renal Disease: No Endocrine Problems Diabetes Mellitus Type 1: No Diabetes Mellitus Type 2: No Blood Problems Sickle Cell Disease: No History of Present Illness HPI Narrative Mr. Pillai is a 43-year-old male with past medical history significant of submassive pulmonary embolism status post mechanical thrombectomy 11/09/2024 and 11/11/2024 and acute bilateral lower extremity DVT who was recently discharged on 11/12/2024 from [facility] status post hospitalization for the same. Patient seen [facility] to establish primary care physician care, patient was discharged on Eliquis 10 mg twice daily for 21 days followed by 5 mg twice daily for 90 days, patient is compliant with medication. Patient also following up with interventional cardiology outpatient. 11/25/2024: Patient currently has no complaints, denies any shortness of breath chest pain or headache. Patient had no significant risk factors for pulmonary embolism, patient's JAK2 was negative, polycythemia related to chronic hypoxia. Patient did have significant 15 lb's weight loss, will schedule patient for colonoscopy with GI outpatient post Eliquis completion. Patient's factor V Leiden mutation is negative, antiphospholipid panel pending, homocystine levels negative. Will reassess factor VIII activity, protein C protein S activity, Antithrombin III activity and prothrombin gene mutation and will follow APLA panel. During hospitalization patient's hemoglobin A1c was 6.6, patient reports that he was diagnosed with diabetes in the past and was started on medication which he stopped taking 7 days after. Patient wants to do lifestyle changes and monitor blood glucose levels at home currently before initiating treatment. Review of Systems Review of Systems Systems Reviewed: All systems reviewed, normal except as documented Objective/Exam Narrative Physical exam: Physical Exam General: Awake and in no acute distress. Conversational and non-toxic appearing. HEENT: Normocephalic, atraumatic, mucous membranes moist. Heart: Regular rate and rhythm, no murmurs. Lungs: Clear to auscultation with no wheezing or crackles. Abdomen: Soft, nondistended, nontender, positive bowel sounds. ?No guarding or rebound tenderness. Neurologic: Alert and oriented x3, no gross neurological deficit, and patient able to move all 4 extremities. Extremities: No edema. Skin: No rash or ecchymoses. Assessment & Plan Diagnosis / Problem List (1) Diabetes mellitus: Status: Acute Assessment & Plan: During hospitalizations patient's hemoglobin A1c 6.6, range consistent with diabetes mellitus. Patient reports was started on medication in the past, took medication for 1 week and stopped. Patient wants to proceed with lifestyle measures and interventions, wants to pursue nonpharmacological management. Plan: - Will continue with lifestyle modification - Patient instructed to check blood glucose daily and maintain a log - Counseled patient if blood glucose levels consistently in the range 180-220, follow-up in clinic sooner. - Will repeat hemoglobin A1c in 1 month and follow-up in clinic - Will consider starting on metformin for management if blood glucose levels consistently elevated - Provided diabetic education, advised to exercise regularly for about 45 minutes 5 days a week (2) Bilateral pulmonary embolism: Status: Chronic Assessment & Plan: Patient hospitalized 11/05/2024 - 11/12/2024 secondary to submassive pulmonary embolism, on presentation CTA showed multiple large bilateral pulmonary artery emboli, VQ scan showed mismatch perfusion defects, echocardiogram findings showed dilation of right ventricle with paradoxical septal motion, severe pulmonary hypertension, imaging and lab findings discussed in detail with PERT team including pulmonology Dr. Lopez and cardiologists Dr. Fox, Dr. Catrachito Pacheco, and patient had mechanical thrombectomy done for left lung 11/09/2024 and right lung 11/11/2024. Post thrombectomy patient was transition from heparin drip to Eliquis 10 mg twice daily. Patient currently following director of flight operations Dr. Fox and is on Eliquis. 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 During hospitalization factor V Leiden mutation is negative, antiphospholipid panel pending, homocystine levels negative. Will reassess factor VIII activity, protein C protein S activity, Antithrombin III activity and prothrombin gene mutation and will follow APLA panel Plan: -Continue treatment with Eliquis, patient started on Eliquis 10 mg twice daily 11/12/2024 -Continue treatment with Eliquis for 3 months, and treatment on 02/12/2025 -During hospitalization factor V Leiden mutation is negative, antiphospholipid panel pending, homocystine levels negative. Will reassess factor VIII activity, protein C protein S activity, Antithrombin III activity and prothrombin gene mutation and will follow APLA panel (3) DVT (deep venous thrombosis): Status: Chronic Assessment & Plan: Patient's ultrasound 11/05/2024 showed extensive lower extremity DVT. Plan: - Treatment as above (4) Encounter for examination following treatment at hospital: Status: Acute Assessment & Plan: As above Plan: As above (5) Screen for colon cancer: Status: Acute Assessment & Plan: Patient had bilateral massive pulmonary embolism, was recently hospitalized. Per natural gas shothole driller recommendation and considering patient's age we will schedule patient for colonoscopy to rule out colon cancer/malignancy as possible source of hypercoagulability. Otherwise gross CT chest was negative for any suspicion of malignancy. Patient is currently asymptomatic denies any change in bowel/bladder habits, did have recent 15 LB weight loss prior to hospitalization. Plan: - Will refer to GI to schedule for colonoscopy. (6) Polycythemia: Status: Resolved Assessment & Plan: Patient did have polycythemia on presentation and hospitalization Was tested for Aryan mutation Plan: - Aryan negative, polycythemia likely secondary to hypoxia. Plan Continue lifestyle modification measures Maintain blood glucose log Follow-up in 1 month, will repeat A1c Continue Eliquis, continue follow-up with cardiology Will refer to gastroenterology for scheduling colonoscopy Will repeat hypercoagulability panel in January. Case discussed with Attending Dr. Reza. Kimmie Diamond PGY1 Disclaimer: This note was dictated by speech recognition. Minor errors in supervisor labor gang may be present due to voice recognition software. Orders: Orders Ambulatory Hemoglobin A1C 1 Month E11.9 - Type 2 diabetes mellitus without complications Physician Billing TCM TCM: Mod. 7-14 days-CPT [address] [facility] Level of Care Nursing/Assessment Patient Status: Established Patient Nursing Assessment/Reassessment: Medication Reconciliation, Update PMH in EMR and Vital Signs Coordination of Care: Complex Care and Chronic Disease 1-5, Consent,records obtained, informed consent, Education Simp Pt/Fam, Results/Orders obtained and Staff clarify orders Established Patient Charge Established Patient Point Assignment: 90 Established Patient Point Charge: EP Level 3 (80-115)
== END 2024-11-25 16:33 | disposition home or self-care (01) ==
LOC: HODAHC 15:36
PROVIDERS: PCP Physician Assistant; Referring Provider Physician Assistant
DX: E11.9 Type 2 diabetes mellitus without complications (principal); I26.99 Other pulmonary embolism without acute cor pulmonale; I82.403 Acute embolism and thrombosis of unspecified deep veins of lower extremity, bilateral; D75.1 Secondary polycythemia
CPT/HCPCS: 99213; G0463

== ENCOUNTER 2024-12-23 15:43 | Outpatient (AMB) | payer BC, SELFPAY ==
--- NOTE | 2024-12-23 15:48 | PD.RESCLINIC ---
Vital Signs 12/23/24 15:49 Height 1.88 m Height Method Stated Weight 106.708 kg Weight Measurement Method Standing Scale BMI 30.2 BP 135/87 H Blood Pressure Source Automatic Cuff Blood Pressure Location Right Upper Arm Position Sitting Respiration 18 Pulse 76 Pulse Source Monitor Temp 98.2 F Temp Source Temporal Artery Scan Pulse Oximetry (%) 97 Oxygen Delivery Method Room Air Allergies/Meds Allergies & Medications Allergies No Known Allergies Allergy (Verified 11/25/24 15:45) [place] Intake Visit Data Collection PCP or OBGYN visit in last 3 months: Yes Smoking Status Smoking Status: Never smoker Immunization / Flu Flu Vaccine in the Last 12 Months: No Flu Vaccine Exclusion Criteria: Refused by Patient and No Exclusion Criteria Past Medical History Past Medical History CARDIAC: Negative Cardiac Disorders or Congestive Heart Failure RESPIRATORY: Negative Chronic Obstructive Pulmonary Disease (COPD) or Asthma GENITOURINARY: Negative Renal Disease ENDOCRINE: Negative Diabetes Mellitus Type 1 or Diabetes Mellitus Type 2 HEMATOLOGIC: Negative Sickle Cell Disease Social History SMOKING STATUS: Smoking status: Never smoker ALCOHOL: Alcohol Intake: Never HOUSING: Housing: House LIVES WITH: Lives With: Family Patient Portal Questionaires PHQ-9 PHQ-2 Over the last 2 weeks, how often have you been bothered by any of the following problems? 1. Little interest or pleasure in doing things: not at all PHQ-9 8. Moving or speaking so slowly that other people could have noticed? - Or the opposite - being so fidgety or restless that you have been moving around a lot more than usual: not at all Source: Developed by Drs. Riaz Newell, Mary Arguello, Naseem Palacios and colleagues, with an educational carolina from [employer]. Social History Living Situation History Housing: House Tobacco History Smoking Status: Never smoker Alcohol History Alcohol Intake: Never Review of Systems Report any current symptoms Only answer those that you have currently: Past Medical History Past Medical History Have you ever been diagnosed with any of the following: Cardiology Problems Congestive Heart Failure: No Respiratory Problems Chronic Obstructive Pulmonary Disease (COPD): No Asthma: No Genital/Urinary Problems Renal Disease: No Endocrine Problems Diabetes Mellitus Type 1: No Diabetes Mellitus Type 2: No Blood Problems Sickle Cell Disease: No History of Present Illness HPI Narrative Mr. Pillai is a 43-year-old male with past medical history significant of submassive pulmonary embolism status post mechanical thrombectomy 11/09/2024 and 11/11/2024 and acute bilateral lower extremity DVT who was recently discharged on 11/12/2024 from [facility] status post hospitalization for the same. Patient seen in [facility] clinic to establish primary care physician care, patient was discharged on Eliquis 10 mg twice daily for 21 days followed by 5 mg twice daily for 90 days, patient is compliant with medication. Patient also following up with interventional cardiology outpatient. 11/25/2024: Patient currently has no complaints, denies any shortness of breath chest pain or headache. Patient had no significant risk factors for pulmonary embolism, patient's JAK2 was negative, polycythemia related to chronic hypoxia. Patient did have significant 15 lb's weight loss, will schedule patient for colonoscopy with GI outpatient post Eliquis completion. Patient's factor V Leiden mutation is negative, antiphospholipid panel pending, homocystine levels negative. Will reassess factor VIII activity, protein C protein S activity, Antithrombin III activity and prothrombin gene mutation and will follow APLA panel. During hospitalization patient's hemoglobin A1c was 6.6, patient reports that he was diagnosed with diabetes in the past and was started on medication which he stopped taking 7 days after. Patient wants to do lifestyle changes and monitor blood glucose levels at home currently before initiating treatment. 12/23/2024: Patient seen and examined in clinic, has no current concerns other than some musculoskeletal right-sided chest pain. Patient does have a history of fall and injuring left side of chest, yet has right sided chest pain likely musculoskeletal since the last couple of years. Patient otherwise has no current complaints, currently on Eliquis as prescribed by interventional cardiology, cardiology recommends continuing anticoagulation for about a year considering patient had significant right heart strain during the hospitalization for which patient did receive mechanical thrombectomy. Patient was recently prescribed ibuprofen by summer sessions director for pain, educated patient on incidence of GI bleed with excessive use of NSAIDs and advised patient to take Protonix along with NSAIDs. Educated on limiting NSAID use 2-week and see if symptoms improve. Patient continues to monitor blood glucose and blood pressure at home which are within normal limits, patient did not bring the log but verbalizes that his blood sugar has been less than 140 at all times. He also reports that he has made dietary and lifestyle modifications to which he is adhering to well. Will follow-up with patient in 1 month with repeat hemoglobin A1c. Will hold off on colonoscopy as patient is on Eliquis currently, has no change in bowel or bladder habits. Will schedule for colonoscopy after patient completes anticoagulation treatment. Review of Systems Review of Systems Systems Reviewed: All systems reviewed, normal except as documented Objective/Exam Narrative Physical exam: Physical Exam General: Awake and in no acute distress. Conversational and non-toxic appearing. HEENT: Normocephalic, atraumatic, mucous membranes moist. Heart: Regular rate and rhythm, no murmurs. Lungs: Clear to auscultation with no wheezing or crackles. Abdomen: Soft, nondistended, nontender, positive bowel sounds. ?No guarding or rebound tenderness. Neurologic: Alert and oriented x3, no gross neurological deficit, and patient able to move all 4 extremities. Extremities: No edema. Skin: No rash or ecchymoses. Assessment & Plan Diagnosis / Problem List (1) Diabetes mellitus: Status: Acute Qualifiers: Diabetes mellitus complication status: without complication Diabetes mellitus nursing home insulin use: without continuous churn buttermaker use Diabetes mellitus type: type 2 Qualified Code(s): E11.9 - Type 2 diabetes mellitus without complications Assessment & Plan: During hospitalizations patient's hemoglobin A1c 6.6, range consistent with diabetes mellitus. Patient reports was started on medication in the past, took medication for 1 week and stopped. Patient wants to proceed with lifestyle measures and interventions, wants to pursue nonpharmacological management. The patient reports that his blood glucose levels at home less than 140, did not bring his log, advised to continue monitoring blood glucose levels at home. Plan: - Will continue with lifestyle modification - Patient instructed to check blood glucose daily and maintain a log, advised to bring log during next follow-up - Counseled patient if blood glucose levels consistently in the range 180-220, follow-up in clinic sooner. - Follow hemoglobin A1c in January. - Advised to continue lifestyle modification, will follow-up in 1 month - Provided diabetic education, advised to exercise regularly for about 45 minutes 5 days a week - Educated on eye, foot and skin care (2) Chest pain: Status: Acute Qualifiers: Chest pain type: intercostal pain Qualified Code(s): R07.82 - Intercostal pain Assessment & Plan: Patient complains of reproducible chest pain with movement of chest on right side. Patient does have history of fall and injury to the left side of chest, though has on and off right-sided chest pain of similar intensity for about 2 years Patient denies any symptoms of GERD, possible costochondritis, was prescribed ibuprofen by summer sessions director during recent visit. Plan: - Patient to continue trial of ibuprofen for about a week - Patient educated on taking pantoprazole along with ibuprofen - Educated on not taking ibuprofen for long duration, considering patient is on Eliquis to avoid gastric ulcers/erosion - Will follow-up in 1 month (3) Bilateral pulmonary embolism: Status: Chronic Assessment & Plan: Patient hospitalized 11/05/2024 - 11/12/2024 secondary to submassive pulmonary embolism, on presentation CTA showed multiple large bilateral pulmonary artery emboli, VQ scan showed mismatch perfusion defects, echocardiogram findings showed dilation of right ventricle with paradoxical septal motion, severe pulmonary hypertension, imaging and lab findings discussed in detail with PERT team including pulmonology Dr. Lopez and cardiologists Dr. Fox, Dr. Catrachito Pacheco, and patient had mechanical thrombectomy done for left lung 11/09/2024 and right lung 11/11/2024. Post thrombectomy patient was transition from heparin drip to Eliquis 10 mg twice daily. Patient currently following summer sessions director Dr. Fox and is on Eliquis. 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 Patient does report history of right foot injury with significant right leg swelling, reports that the swelling resolved on its own, possibly patient had provoked DVT due to the injury in the past. During hospitalization factor V Leiden mutation is negative, antiphospholipid panel pending, homocystine levels negative. Will reassess factor VIII activity, protein C protein S activity, Antithrombin III activity and prothrombin gene mutation and will follow APLA panel Plan: -Continue Eliquis for 1 year per cardiology recommendations -During hospitalization factor V Leiden mutation is negative, antiphospholipid panel pending, homocystine levels negative. Will reassess factor VIII activity, protein C protein S activity, Antithrombin III activity and prothrombin gene mutation and will follow APLA panel -Patient will undergo full hypercoagulable panel after he completes treatment. -Bleeding precautions, educated on risks and benefits of being on Eliquis -Advised to use compression stockings during a travel Plan Continue lifestyle modification measures Maintain blood glucose log Follow-up in 1 month, will repeat A1c Continue Eliquis, continue follow-up with cardiology Case discussed with Attending Dr. Reza. Kimmie Diamond PGY1 Disclaimer: This note was dictated by speech recognition. Minor errors in paver operator may be present due to voice recognition software. Orders: Orders Ambulatory Hemoglobin A1C 1 Month Physician Billing Established Patient Established Patient: E/M Level 3-CPT 59142 Office Procedures [facility] Level of Care Nursing/Assessment Patient Status: Established Patient Nursing Assessment/Reassessment: Medication Reconciliation, Update PMH in EMR and Vital Signs Coordination of Care: Complex Care and Chronic Disease 1-5, Consent,records obtained, informed consent, Education Simp Pt/Fam and Staff clarify orders Established Patient Charge Established Patient Point Assignment: 85 Established Patient Point Charge: Level 3 (80-115)
[2024-12-23 15:49] VITALS: BP 135/87; PULSE 76; RESP 18; TEMP 36.8; O2SAT 97; BMI 30.2
== END 2024-12-23 16:00 | disposition home or self-care (01) ==
LOC: HODAHC 15:43
PROVIDERS: PCP Physician Assistant; Referring Provider Physician Assistant
DX: E11.9 Type 2 diabetes mellitus without complications (principal); R07.82 Intercostal pain; I26.99 Other pulmonary embolism without acute cor pulmonale; Z79.01 Long term (current) use of anticoagulants
CPT/HCPCS: 99213; G0463

== ENCOUNTER 2025-02-17 15:15 | Outpatient (AMB) | payer BC, SELFPAY ==
[2025-02-17 15:37] VITALS: BP 140/73; PULSE 87; RESP 18; TEMP 36.4; O2SAT 94; BMI 30.4
--- NOTE | 2025-02-17 15:37 | PD.RESCLINIC ---
Vital Signs 02/17/25 15:37 Height 1.88 m Height Method Stated Weight 107.671 kg Weight Measurement Method Standing Scale BMI 30.4 BP 140/73 H Blood Pressure Source Automatic Cuff Blood Pressure Location Right Upper Arm Position Sitting Respiration 18 Pulse 87 Pulse Source Monitor Temp 97.6 F Temp Source Temporal Artery Scan Pulse Oximetry (%) 94 L Oxygen Delivery Method Room Air Allergies/Meds Allergies & Medications Allergies No Known Allergies Allergy (Verified 02/17/25 15:38) Medication Reconciliation apixaban 5 mg tablet (Eliquis) 5 mg PO BID #90 tabs 11/12/24 [Rx Confirmed 02/17/25] MA Intake Visit Data Collection New Patient or Established: Established Patient (seen at [facility] within 3 years) Seen by Clinical Staff ONLY (RN/MA): No Pain Present Currently: No Pain scale:: 0 Pain Scale Used: Campoverde-Alexander/Numerical Tar Boiler Required: No PCP or OBGYN visit in last 3 months: No Hx Now: No Do You Feel Safe at Home: Yes Authorities Contacted: N/A Smoking Status Smoking Status: Never smoker Immunization / Flu Flu Vaccine in the Last 12 Months: No Flu Vaccine Exclusion Criteria: No Exclusion Criteria Past Medical History Past Medical History CARDIAC: Negative Cardiac Disorders or Congestive Heart Failure RESPIRATORY: Negative Chronic Obstructive Pulmonary Disease (COPD) or Asthma GENITOURINARY: Negative Renal Disease ENDOCRINE: Negative Diabetes Mellitus Type 1 or Diabetes Mellitus Type 2 HEMATOLOGIC: Negative Sickle Cell Disease Social History SMOKING STATUS: Smoking status: Never smoker ALCOHOL: Alcohol Intake: Never HOUSING: Housing: House LIVES WITH: Lives With: Family Patient Portal Questionaires PHQ-9 PHQ-2 Over the last 2 weeks, how often have you been bothered by any of the following problems? 1. Little interest or pleasure in doing things: not at all PHQ-9 8. Moving or speaking so slowly that other people could have noticed? - Or the opposite - being so fidgety or restless that you have been moving around a lot more than usual: not at all Source: Developed by Drs. Riaz Newell, Mary Arguello, Naseem Palacios and colleagues, with an educational [place] from [employer]. Social History Living Situation History Housing: House Tobacco History Smoking Status: Never smoker Alcohol History Alcohol Intake: Never Domestic Abuse History Do You Feel Safe at Home: Yes Review of Systems Report any current symptoms Only answer those that you have currently: Past Medical History Past Medical History Have you ever been diagnosed with any of the following: Cardiology Problems Congestive Heart Failure: No Respiratory Problems Chronic Obstructive Pulmonary Disease (COPD): No Asthma: No Genital/Urinary Problems Renal Disease: No Endocrine Problems Diabetes Mellitus Type 1: No Diabetes Mellitus Type 2: No Blood Problems Sickle Cell Disease: No History of Present Illness HPI Narrative Mr. Pillai is a 43-year-old male with past medical history significant of submassive pulmonary embolism status post mechanical thrombectomy 11/09/2024 and 11/11/2024 and acute bilateral lower extremity DVT who was recently discharged on 11/12/2024 from [facility] status post hospitalization for the same. Patient seen in [facility] to establish primary care physician care, patient was discharged on Eliquis 10 mg twice daily for 21 days followed by 5 mg twice daily for 90 days, patient is compliant with medication. Patient also following up with interventional cardiology outpatient. 11/25/2024: Patient currently has no complaints, denies any shortness of breath chest pain or headache. Patient had no significant risk factors for pulmonary embolism, patient's JAK2 was negative, polycythemia related to chronic hypoxia. Patient did have significant 15 lb's weight loss, will schedule patient for colonoscopy with GI outpatient post Eliquis completion. Patient's factor V Leiden mutation is negative, antiphospholipid panel pending, homocystine levels negative. Will reassess factor VIII activity, protein C protein S activity, Antithrombin III activity and prothrombin gene mutation and will follow APLA panel. During hospitalization patient's hemoglobin A1c was 6.6, patient reports that he was diagnosed with diabetes in the past and was started on medication which he stopped taking 7 days after. Patient wants to do lifestyle changes and monitor blood glucose levels at home currently before initiating treatment. 12/23/2024: Patient seen and examined in clinic, has no current concerns other than some musculoskeletal right-sided chest pain. Patient does have a history of fall and injuring left side of chest, yet has right sided chest pain likely musculoskeletal since the last couple of years. Patient otherwise has no current complaints, currently on Eliquis as prescribed by interventional cardiology, cardiology recommends continuing anticoagulation for about a year considering patient had significant right heart strain during the hospitalization for which patient did receive mechanical thrombectomy. Patient was recently prescribed ibuprofen by tunnel man for pain, educated patient on incidence of GI bleed with excessive use of NSAIDs and advised patient to take Protonix along with NSAIDs. Educated on limiting NSAID use 2-week and see if symptoms improve. Patient continues to monitor blood glucose and blood pressure at home which are within normal limits, patient did not bring the log but verbalizes that his blood sugar has been less than 140 at all times. He also reports that he has made dietary and lifestyle modifications to which he is adhering to well. Will follow-up with patient in 1 month with repeat hemoglobin A1c. Will hold off on colonoscopy as patient is on Eliquis currently, has no change in bowel or bladder habits. Will schedule for colonoscopy after patient completes anticoagulation treatment. 02/17/2025: Patient seen and examined in clinic for follow-up, patient still complains of mid chest pain radiating to the right side, did take [id number] ibuprofen for possible musculoskeletal pain, reports no improvement. Patient also follows cardiology, had PE has been on anticoagulation for about 3 months. Patient's chest pain is likely musculoskeletal versus possible etiology of underlying rheumatological disease. Will order further workup. Patient otherwise reports good blood sugar control outpatient, not on any diabetes management. Requested patient to bring notebook with daily blood glucose numbers. Chronically elevated blood pressure readings noted, discussed with patient attributes high blood pressure readings to anxiety of being in doctor's office, will continue to monitor. Review of Systems Review of Systems Systems Reviewed: All systems reviewed, normal except as documented Objective/Exam Narrative Physical exam: Physical Exam General: Awake and in no acute distress. Conversational and non-toxic appearing. HEENT: Normocephalic, atraumatic, mucous membranes moist. Heart: Regular rate and rhythm, no murmurs. Lungs: Clear to auscultation with no wheezing or crackles. Positive for midsternal pain at junction of manubrium and body of sternum Abdomen: Soft, nondistended, nontender, positive bowel sounds. ?No guarding or rebound tenderness. Neurologic: Alert and oriented x3, no gross neurological deficit, and patient able to move all 4 extremities. Extremities: No edema. Skin: No rash or ecchymoses. Bilateral lower extremity varicose veins noted. Assessment & Plan Diagnosis / Problem List (1) Chest pain: Status: Acute Qualifiers: Chest pain type: intercostal pain Qualified Code(s): R07.82 - Intercostal pain Assessment & Plan: Differential diagnosis: Costochondritis, Tietze syndrome, sternal fracture, ?Spondyloarthropathy. Ruled out ACS, currently on treatment for PE Patient complains of reproducible chest pain with movement of chest on right side. Patient reports significant pain at the junction of manubrium and body of sternum radiating to the right side-has had chronic on and off chest pain for about 2 years at similar site He does have an history of fall and injury to the left side of chest Patient denies any symptoms of GERD, possible costochondritis, was prescribed ibuprofen by tunnel man during recent visit. Plan: - Patient to continue [id number] Tylenol/exercises for management. Follows up with chiropractor although no relief. - Ordered further workup to rule out rheumatological disorders: ESR, CRP, CBC, CMP, MAXIMO, rheumatoid factor, HLA-B27, vitamin D - ordered chest x-ray (2) Diabetes mellitus: Status: Chronic Qualifiers: Diabetes mellitus type: type 2 Diabetes mellitus moth exterminator insulin use: without moth exterminator use Diabetes mellitus complication status: without complication Qualified Code(s): E11.9 - Type 2 diabetes mellitus without complications Assessment & Plan: During hospitalizations patient's hemoglobin A1c 6.6, range consistent with diabetes mellitus. Patient reports was started on medication in the past, took medication for 1 week and stopped. Patient wants to proceed with lifestyle measures and interventions, wants to pursue nonpharmacological management. The patient reports that his blood glucose levels at home less than 140, did not bring his log, advised to continue monitoring blood glucose levels at home. Plan: - Will continue with lifestyle modification - Patient instructed to check blood glucose daily and maintain a log, advised to bring log during next follow-up - Counseled patient if blood glucose levels consistently in the range 180-220, follow-up in clinic sooner. - Follow hemoglobin A1c - Advised to continue lifestyle modification. - Provided diabetic education, advised to exercise regularly for about 45 minutes 5 days a week - Educated on eye, foot and skin care (3) Bilateral pulmonary embolism: Status: Chronic Assessment & Plan: Patient hospitalized 11/05/2024 - 11/12/2024 secondary to submassive pulmonary embolism, on presentation CTA showed multiple large bilateral pulmonary artery emboli, VQ scan showed mismatch perfusion defects, echocardiogram findings showed dilation of right ventricle with paradoxical septal motion, severe pulmonary hypertension, imaging and lab findings discussed in detail with PERT team including pulmonology Dr. Lopez and cardiologists Dr. Fox, Dr. Catrachito Pacheco, and patient had mechanical thrombectomy done for left lung 11/09/2024 and right lung 11/11/2024. Post thrombectomy patient was transition from heparin drip to Eliquis 10 mg twice daily. Patient currently following tunnel man Dr. Fox and is on Eliquis. 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 Patient does report history of right foot injury with significant right leg swelling, reports that the swelling resolved on its own, possibly patient had provoked DVT due to the injury in the past. During hospitalization factor V Leiden mutation is negative, antiphospholipid panel pending, homocystine levels negative. Will reassess factor VIII activity, protein C protein S activity, Antithrombin III activity and prothrombin gene mutation and will follow APLA panel Plan: -Continue Eliquis for 1 year per cardiology recommendations -During hospitalization factor V Leiden mutation is negative, antiphospholipid panel pending, homocystine levels negative. Will reassess factor VIII activity, protein C protein S activity, Antithrombin III activity and prothrombin gene mutation and will follow APLA panel -Patient will undergo full hypercoagulable panel after he completes treatment. -Bleeding precautions, educated on risks and benefits of being on Eliquis -Advised to use compression stockings during a travel (4) Varicose veins of both lower extremities: Status: Acute Qualifiers: Varicose vein complication: asymptomatic Qualified Code(s): I83.93 - Asymptomatic varicose veins of bilateral lower extremities Assessment & Plan: Varicose veins noted bilateral lower extremities. Currently asymptomatic. Plan: - Reassured patient, advised to use compression stockings. - Follow-up with cardiology. Plan Continue lifestyle modification measures Maintain blood glucose log Follow-up in 1 month, with lab results and x-ray Continue Eliquis, continue follow-up with cardiology Case discussed with Attending Dr. Reaz. Kimmie Diamond PGY1 Disclaimer: This note was dictated by speech recognition. Minor errors in genetic counsellor may be present due to voice recognition software. Orders: Orders XR ribs BI min 4V w CXR1V 2 Months R07.82 - Intercostal pain Physician Billing Established Patient Established Patient: E/M Level 3-CPT 65249 Office Procedures [facility] Level of Care Nursing/Assessment Patient Status: Established Patient Nursing Assessment/Reassessment: Medication Reconciliation, Update PMH in EMR and Vital Signs Coordination of Care: Complex Care and Chronic Disease 1-5, Consent,records obtained, informed consent, Education Simp Pt/Fam and Staff clarify orders Established Patient Charge Established Patient Point Assignment: 85 Established Patient Point Charge: EP Level 3 (80-115)
== END 2025-02-17 16:36 | disposition home or self-care (01) ==
LOC: HODAHC 15:15
DX: R07.82 Intercostal pain (principal); E11.9 Type 2 diabetes mellitus without complications; Z86.711 Personal history of pulmonary embolism; Z79.01 Long term (current) use of anticoagulants; I83.93 Asymptomatic varicose veins of bilateral lower extremities
CPT/HCPCS: 99213; G0463

== ENCOUNTER → 2025-03-15 | Outpatient (CLI) | payer BC, SELFPAY ==
--- NOTE | 2025-03-15 09:47 | XR_ITS ---
Examination: Ribs, bilateral, with PA chest, 7 views Technique: Chest PA, RIBS AP, RPO, LPO right and left ribs, AP coned lower ribs 7 views Exam date and time: March 15, 2025 1006 hours INDICATIONS: Pain in the ribs beginning 7 months ago Findings: Normal heart size Lungs are clear. Mild osteopenia. Ribs appear intact IMPRESSION: No active disease in the chest Ribs appear intact
== END | disposition home or self-care (01) ==
DX: R07.82 Intercostal pain (principal)
CPT/HCPCS: 71111

== ENCOUNTER 2025-04-04 08:49 | Outpatient (AMB) | payer BC, SELFPAY ==
[2025-04-04 09:07] VITALS: BP 124/78; PULSE 77; RESP 18; TEMP 36.8; O2SAT 97; BMI 29.3
--- NOTE | 2025-04-04 09:07 | ACNOTE_ITS ---
Vital Signs 04/04/25 09:07 Height 1.88 m Height Method Stated Weight 103.873 kg Weight Measurement Method Standing Scale BMI 29.3 BP 124/78 Blood Pressure Source Automatic Cuff Blood Pressure Location Right Upper Arm Position Sitting Respiration 18 Pulse 77 Pulse Source Monitor Temp 98.2 F Temp Source Temporal Artery Scan Pulse Oximetry (%) 97 Oxygen Delivery Method Room Air Allergies/Meds Allergies & Medications Allergies No Known Allergies Allergy (Verified 04/04/25 09:08) Medication Reconciliation apixaban 5 mg tablet (Eliquis) 5 mg PO BID #90 tabs 11/12/24 [Rx Confirmed 04/04/25] apixaban 5 mg tablet (Eliquis) 5 mg PO BID Pulmonary Embolism 30 days #60 tabs 03/20/25 [Rx Confirmed 04/04/25] calcium carbonate (Calcium 500) 500 mg PO QDAY 3 months #90 tabs 04/04/25 [Rx] cholecalciferol (vitamin D3) 1,250 mcg (50,000 unit) capsule 1,250 mcg PO QWEEK 12 weeks #12 caps 04/04/25 [Rx] ibuprofen 600 mg tablet 600 mg PO TID Costochondritis 2 weeks #42 tabs 04/04/25 [Rx] pantoprazole 40 mg tablet,delayed release 40 mg PO BID GI Prophylaxis 2 weeks #28 tabs 04/04/25 [Rx] MA Intake Visit Data Collection New Patient or Established: Established Patient (seen at [facility] within 3 years) Seen by Clinical Staff ONLY (RN/MA): No Pain Present Currently: No Pain scale:: 0 Pain Scale Used: [facility] Presales Consultant Required: No PCP or OBGYN visit in last 3 months: Yes Hx Now: No Do You Feel Safe at Home: Yes Authorities Contacted: N/A Smoking Status Smoking Status: Never smoker Immunization / Flu Flu Vaccine in the Last 12 Months: No Flu Vaccine Exclusion Criteria: No Exclusion Criteria Past Medical History Past Medical History CARDIAC: Negative Cardiac Disorders or Congestive Heart Failure RESPIRATORY: Negative Chronic Obstructive Pulmonary Disease (COPD) or Asthma GENITOURINARY: Negative Renal Disease ENDOCRINE: Negative Diabetes Mellitus Type 1 or Diabetes Mellitus Type 2 HEMATOLOGIC: Negative Sickle Cell Disease Social History SMOKING STATUS: Smoking status: Never smoker ALCOHOL: Alcohol Intake: Never HOUSING: Housing: House LIVES WITH: Lives With: Family Patient Portal Questionaires PHQ-9 PHQ-2 Over the last 2 weeks, how often have you been bothered by any of the following problems? 1. Little interest or pleasure in doing things: not at all PHQ-9 8. Moving or speaking so slowly that other people could have noticed? - Or the opposite - being so fidgety or restless that you have been moving around a lot more than usual: not at all Source: Developed by Drs. Riaz Newell, Mary Arguello, Naseem Palacios and colleagues, with an educational [place] from [employer]. Social History Living Situation History Housing: House Tobacco History Smoking Status: Never smoker Alcohol History Alcohol Intake: Never Domestic Abuse History Do You Feel Safe at Home: Yes Review of Systems Report any current symptoms Only answer those that you have currently: Past Medical History Past Medical History Have you ever been diagnosed with any of the following: Cardiology Problems Congestive Heart Failure: No Respiratory Problems Chronic Obstructive Pulmonary Disease (COPD): No Asthma: No Genital/Urinary Problems Renal Disease: No Endocrine Problems Diabetes Mellitus Type 1: No Diabetes Mellitus Type 2: No Blood Problems Sickle Cell Disease: No History of Present Illness HPI Narrative Mr. Pillai is a 43-year-old male with past medical history significant of submassive pulmonary embolism status post mechanical thrombectomy 11/09/2024 and 11/11/2024 and acute bilateral lower extremity DVT who was recently discharged on 11/12/2024 from [facility] status post hospitalization for the same. Patient seen in [facility] to establish primary care physician care, patient was discharged on Eliquis 10 mg twice daily for 21 days followed by 5 mg twice daily for 90 days, patient is compliant with medication. Patient also following up with interventional cardiology outpatient. 11/25/2024: Patient currently has no complaints, denies any shortness of breath chest pain or headache. Patient had no significant risk factors for pulmonary embolism, patient's JAK2 was negative, polycythemia related to chronic hypoxia. Patient did have significant 15 lb's weight loss, will schedule patient for colonoscopy with GI outpatient post Eliquis completion. Patient's factor V Leiden mutation is negative, antiphospholipid panel pending, homocystine levels negative. Will reassess factor VIII activity, protein C protein S activity, Antithrombin III activity and prothrombin gene mutation and will follow APLA panel. During hospitalization patient's hemoglobin A1c was 6.6, patient reports that he was diagnosed with diabetes in the past and was started on medication which he stopped taking 7 days after. Patient wants to do lifestyle changes and monitor blood glucose levels at home currently before initiating treatment. 12/23/2024: Patient seen and examined in clinic, has no current concerns other than some musculoskeletal right-sided chest pain. Patient does have a history of fall and injuring left side of chest, yet has right sided chest pain likely musculoskeletal since the last couple of years. Patient otherwise has no current complaints, currently on Eliquis as prescribed by interventional cardiology, cardiology recommends continuing anticoagulation for about a year considering patient had significant right heart strain during the hospitalization for which patient did receive mechanical thrombectomy. Patient was recently prescribed ibuprofen by medical economics consultant for pain, educated patient on incidence of GI bleed with excessive use of NSAIDs and advised patient to take Protonix along with NSAIDs. Educated on limiting NSAID use 2-week and see if symptoms improve. Patient continues to monitor blood glucose and blood pressure at home which are within normal limits, patient did not bring the log but ve rbalizes that his blood sugar has been less than 140 at all times. He also reports that he has made dietary and lifestyle modifications to which he is adhering to well. Will follow-up with patient in 1 month with repeat hemoglobin A1c. Will hold off on colonoscopy as patient is on Eliquis currently, has no change in bowel or bladder habits. Will schedule for colonoscopy after patient completes anticoagulation treatment. 02/17/2025: Patient seen and examined in clinic for follow-up, patient still complains of mid chest pain radiating to the right side, did take [id number] ibuprofen for possible musculoskeletal pain, reports no improvement. Patient also follows cardiology, had PE has been on anticoagulation for about 3 months. Patient's chest pain is likely musculoskeletal versus possible etiology of underlying rheumatological disease. Will order further workup. Patient otherwise reports good blood sugar control outpatient, not on any diabetes management. Requested patient to bring notebook with daily blood glucose numbers. Chronically elevated blood pressure readings noted, discussed with patient attributes high blood pressure readings to anxiety of being in doctor's office, will continue to monitor. 04/04/2025: Patient seen in clinic for follow-up, continues to complain of mid chest pain, labs reviewed HLA-B27 and rheumatoid factor negative. Otherwise elevated blood glucose level noted, counseled patient again on diabetes management, continues to want to proceed with lifestyle modifications. Patient reports that he checks his blood glucose with his 's glucometer and his blood glucose is always less than 140. Today blood pressure reading is within normal limits. Likely has whitecoat hypertension. For patient's chest pain very high suspicion of musculoskeletal chest pain, will prescribe ibuprofen and Protonix for GI prophylaxis considering patient is on Eliquis. Patient's vitamin D levels are low, will prescribe vitamin D supplementation, x-ray reviewed shows mild osteopenia will prescribe calcium supplementation at patient's request as well. Review of Systems Review of Systems Systems Reviewed: All systems reviewed, normal except as documented Objective/Exam Narrative Physical exam: Physical Exam General: Awake and in no acute distress. Conversational and non-toxic appearing. HEENT: Normocephalic, atraumatic, mucous membranes moist. Heart: Regular rate and rhythm, no murmurs. Lungs: Clear to auscultation with no wheezing or crackles. Positive for midsternal pain at junction of manubrium and body of sternum Abdomen: Soft, nondistended, nontender, positive bowel sounds. ?No guarding or rebound tenderness. Neurologic: Alert and oriented x3, no gross neurological deficit, and patient able to move all 4 extremities. Extremities: No edema. Skin: No rash or ecchymoses. Bilateral lower extremity varicose veins noted. Results Labs CBC: WBC 8.0, RBC 6.06, hemoglobin 15.8, hematocrit 50.7, MCV 84, MCH 26.1, MCHC 31.2, RDW 14.4, platelets 304, neutrophils 59, lymphs 33, monocytes 5, Eos 3, basos 0, neutrophil absolute 4.6, lymphs absolute 2.7, monocytes absolute 0.4, eosinophils absolute 0.2, basophils absolute 0.0, immature granulocytes 0, immature granulocytes abs 0.0 CMP glucose 133, BUN 13, creatinine 1.1, EGFR 85, BUN/creatinine ratio 12, sodium 139, potassium 5.1, chloride 105, carbon dioxide total 22, calcium 9.6, protein total 7.3, albumin 4.5, globulin 2.8, bilirubin 0.5, alk phos 104, AST 20, ALT 27 Lipid panel: Cholesterol 153, triglyceride 121, HDL 36, VLDL 22, LDL 95 LDL/HDL ratio 2.6 Rheumatoid factor less than 10 HLA-B27 negative Vitamin D 25-hydroxy 23.2 MAXIMO negative ESR 11 CRP 3 03/15: Ribs w/chest X-Ray show Normal heart size, Lungs are clear, Mild osteopen ia, Ribs appear intact Assessment & Plan Diagnosis / Problem List (1) Acute costochondritis: Status: Acute Assessment & Plan: Patient complains of reproducible chest pain with movement of chest on right side. Patient reports significant pain at the junction of manubrium and body of sternum radiating to the right side-has had chronic on and off chest pain for about 2 years at similar site He does have an history of fall and injury to the left side of chest Reports non-adherence and non-compliance to Ibuprofen prescribed in the past. ESR, CRP, MAXIMO panel, HLA-B27, rheumatoid factor within normal limits vitamin D 23.2 03/15: Ribs w/chest X-Ray show Normal heart size, Lungs are clear, Mild osteopenia, Ribs appear intact Plan: -Prescribed Ibuprufen 600 TID COLTON for two weeks -Prescribed Pantoprazole 40mg BID for GI Prophylaxis considering patient is on Eliquis -Continue exercises and stretches. -Follow Up -Educated on hazards on ocean transportation intermediary NSAID Use (2) Vitamin D deficiency: Status: Acute Assessment & Plan: Vitamin D 25-hydroxy 23.2 Plan: -Prescribed Vit D3 50,000 units every week for 12 weeks. -Prescribed Calcium Carbonate 500mg daily for 3 months. (3) Diabetes mellitus: Status: Chronic Qualifiers: Diabetes mellitus complication status: without complication Diabetes mellitus ocean transportation intermediary insulin use: without retirement use Diabetes mellitus type: type 2 Qualified Code(s): E11.9 - Type 2 diabetes mellitus without complications Assessment & Plan: During hospitalizations patient's hemoglobin A1c 6.6, range consistent with diabetes mellitus. Patient reports was started on medication in the past, took medication for 1 week and stopped. Patient wants to proceed with lifestyle measures and interventions, wants to pursue nonpharmacological management. The patient reports that his blood glucose levels at home less than 140, did not bring his log, advised to continue monitoring blood glucose levels at home. Plan: - Will continue with lifestyle modification - Patient instructed to check blood glucose daily and maintain a log, advised to bring log during next follow-up - Counseled patient if blood glucose levels consistently in the range 180-220, follow-up in clinic sooner. - Advised to continue lifestyle modification. - Provided diabetic education, advised to exercise regularly for about 45 minutes 5 days a week - Educated on eye, foot and skin care (4) Bilateral pulmonary embolism: Status: Chronic Assessment & Plan: Patient hospitalized 11/05/2024 - 11/12/2024 secondary to submassive pulmonary embolism, on presentation CTA showed multiple large bilateral pulmonary artery emboli, VQ scan showed mismatch perfusion defects, echocardiogram findings showed dilation of right ventricle with paradoxical septal motion, severe pulmonary hypertension, imaging and lab findings discussed in detail with [facility] team including pulmonology Dr. Lopez and cardiologists Dr. Fox, Dr. Catrachito Pacheco, and patient had mechanical thrombectomy done for left lung 11/09/2024 and right lung 11/11/2024. Post thrombectomy patient was transition from heparin drip to Eliquis 10 mg twice daily. Patient currently following medical economics consultant Dr. Fox and is on Eliquis. 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 Patient does report history of right foot injury with significant right leg swelling, reports that the swelling resolved on its own, possibly patient had provoked DVT due to the injury in the past. During hospitalization factor V Leiden mutation is negative, antiphospholipid panel pending, homocystine levels negative. Will reassess factor VIII activity, protein C protein S activity, Antithrombin III activity and prothrombin gene mutation and will follow APLA panel Plan: -Continue Eliquis for 1 year per cardiology recommendations -During hospitalization factor V Leiden mutation is negative, antiphospholipid panel pending, homocystine levels negative. Will reassess factor VIII activity, protein C protein S activity, Antithrombin III activity and prothrombin gene mutation and will follow APLA panel -Patient will undergo full hypercoagulable panel after he completes treatment. -Bleeding precautions, educated on risks and benefits of being on Eliquis -Advised to use compression stockings during a travel (5) Varicose veins of both lower extremities: Status: Acute Qualifiers: Varicose vein complication: asymptomatic Qualified Code(s): I83.93 - Asymptomatic varicose veins of bilateral lower extremities Assessment & Plan: Varicose veins noted bilateral lower extremities. Currently asymptomatic. Plan: - Reassured patient, advised to use compression stockings. - Follow-up with cardiology. Plan Continue Ibuprufen for 2 weeks along with protonix for GI prophylaxis. Continue lifestyle modification measures Maintain blood glucose log Follow-up in 3 months or as needed Continue Eliquis, continue follow-up with cardiology Case discussed with Attending Physician Dr. Reza. Kimmie Diamond MD Internal Medicine PGY-2 Disclaimer: This note was dictated by speech recognition. Minor errors in world travel counselor may be present due to voice recognition software. Physician Billing Established Patient Established Patient: E/M Level 3-CPT [id number] Office Procedures [facility] Level of Care Nursing/Assessment Patient Status: Established Patient Nursing Assessment/Reassessment: Medication Reconciliation, Update PMH in EMR and Vital Signs Coordination of Care: Complex Care and Chronic Disease 1-5, Consent,records obtained, informed consent, Education Simp Pt/Fam, Results/Orders obtained and Staff clarify orders Established Patient Charge Established Patient Point Assignment: 90 Established Patient Point Charge: Level 3 (80-115)
== END 2025-04-04 09:58 | disposition home or self-care (01) ==
LOC: HODAHC 08:49
PROVIDERS: Supervising Provider Internal Medicine
DX: M94.0 Chondrocostal junction syndrome [Tietze] (principal); E55.9 Vitamin D deficiency, unspecified; E11.9 Type 2 diabetes mellitus without complications; I26.99 Other pulmonary embolism without acute cor pulmonale; Z79.01 Long term (current) use of anticoagulants; I83.93 Asymptomatic varicose veins of bilateral lower extremities
CPT/HCPCS: 99213; G0463